=== PATIENT | male | born 1975 | race Caucasian/White ===

== ENCOUNTER 2020-10-11 10:38 | Inpatient (IN) | payer MEDICARE, MEDICAID, SELFPAY ==
--- NOTE | 2020-10-11 10:39 | ED.PSYCH ---
HPI - Psych General Chief Complaint: Psychiatric Symptoms Stated Complaint: SECTION 12, NON MED COMPLIANT Time Seen by Provider: 10/11/20 10:39 Source: patient and EMS Mode of arrival: EMS Limitations: other (vague historian, not really answering questions) History of Present Illness MD complaint: feels depressed and other (not taking medications, not eating, ?self harm practices, depressed) Onset (ago): week(s) (1) Duration: getting worse History of same: Yes Relieving factors: none Exacerbating factors: other (he has not been taking his medications per section 12 he is on lana's order) Context: not taking psychiatric medications Associated psychiatric symptoms: depression Associated symptoms: other (poor appetite) Treatments prior to arrival: placed on mental health hold Related Data Home Medications Medication Instructions Recorded Confirmed benztropine 1 tab PO DAILY 10/11/20 10/11/20 diphenhydramine HCl [Benadryl] 25 mg PO 10/11/20 melatonin 1 tab PO BEDTIME 10/11/20 10/11/20 olanzapine 1 tab PO BEDTIME 10/11/20 10/11/20 Allergies Allergy/AdvReac Type Severity Reaction Status Date / Time ofloxacin [From Floxin] Allergy Unknown Unknown Verified 10/11/20 10:46 prednisone AdvReac Unknown Unknown Verified 10/11/20 10:46 Review of Systems Review of Systems: ROS unable to be obtained due to limited historian, vague, not fully answering questions [facility] Past Medical History Attestation statement: The following information was validated with the patient. Medical History HLD (hyperlipidemia) Schizophrenia Social History Social History (Updated 10/11/20 @ 10:55 by Yancy Purcell DO) Alcohol intake: former Patient Tobacco Use Status: Current someday Tobacco user Use of substances other than those prescribed or required for medical reasons: No Advance Directives: Yes Advance Directives Information Provided: Yes Advance Directives on File: No Physical Exam Vital Signs: Vital Signs: Last Vital Signs Temp 98.5 F 10/11/20 13:40 Pulse 76 10/11/20 15:04 Resp 17 10/11/20 15:04 BP 151/92 H 10/11/20 15:04 Pulse Ox 97 10/11/20 15:04 Body Mass Index 30.4 Appearance: Alert. Oriented X3. No acute distress. Looking around room quickly at different noises Eyes: Pupils equal, round and reactive to light. ENT: Pharynx normal. Neck: Normal inspection. Neck supple. CVS: Normal heart rate and rhythm. Pulses normal. Respiratory: No respiratory distress. Breath sounds normal. Abdomen: Soft and non-tender. Skin: Skin warm and dry. Normal skin color. Normal skin turgor. Extremities: No lower extremity edema. No calf ttp Neuro: Oriented X 3. No motor deficit. No sensory deficit. limited exam due to patient seems to be staring off at times and internalizing, he appears slightly agitated at times Psych: flat affect, withdrawn, appears depressed, staring off at times ?responding to internal stimuli, seems on edge Course Course Course Narrative: Physician observation started at 306pm Patient placed in physician observation because the patient needed more time BHN to assess the patient and determine need for inpatient level of care. At the time observation was started the patient's vitals were stable, patient is alert and oriented but appears anxious, Neuro: nonfocal, CV RRR, Lungs clear MDM - Psych MDM Narrative Medical decision making narrative: 45 yo male with hx of HLD/schizophrenia here with non compliance of medications x 1 week even on lana's order, section 12 reports the patient is not eating, not taking care of himself, not using his AC when it is hot out, he appears depressed and withdrawn, ?responding to internal stimuli, at this time labs, BHN consult, anticipate he will require inpatient level of care Lab Data Result diagrams: 10/11/20 11:08 10/11/20 11:08 Labs: Lab Results 10/11/20 10/11/20 10/11/20 Range/Units 11:08 11:08 11:08 WBC 7.0 (4.8-10.8) X10*3/uL RBC 4.51 L (4.60-5.80) X10*6/uL Hgb 13.9 L (14.0-18.0) g/dl Hct 41.6 L (42-52) % MCV 92.2 (80-98) fL MCH 30.8 (27.0-33.0) pg MCHC 33.4 (31.0-36.0) g/dl RDW 12.7 (11.0-16.0) % Plt Count 187 (160-400) X10*3/uL MPV 10.6 (9.4-12.4) fL Immature Gran % (Auto) 0.4 (0.0-0.4) % Neut % (Auto) 76.0 H (45-73) % Lymph % (Auto) 17.3 L (20-40) % [place] % (Auto) 5.6 (2-11) % Eos % (Auto) 0.3 (0-4) % Baso % (Auto) 0.4 (0-2) % Lymph # (Auto) 1.2 (1.2-4.9) X10*3/uL [place] # (Auto) 0.4 (0.1-1.2) X10*3/uL Eos # (Auto) 0.0 (0.0-0.4) X10*3/uL Baso # (Auto) 0.0 (0.0-0.2) X10*3/uL Abs Immat Gran (auto) 0.03 (0.00-0.03) X10*3/uL Absolute Neuts (auto) 5.3 (2.0-8.3) X10*3/uL Absolute Nucleated RBC 0.000 (0.0-0.012) X10*3/uL Nucleated RBC % (auto) 0.0 (0.0-0.2) /100WBC Sodium 141 (135-145) mmol/L Potassium 3.8 (3.3-5.1) mmol/L Chloride 106 (96-108) mmol/L Carbon Dioxide 24 (22-29) mmol/L Anion Gap 15 (12-20) BUN 17 H (9-16) mg/dL Creatinine 0.85 (0.5-1.4) mg/dL Estim Creat Clear Calc 129.1 Estimated GFR > 60 Random Glucose 120 H (60-115) mg/dL Calcium 9.3 (8.4-10.2) mg/dL Total Bilirubin 1.1 H (0.0-1.0) mg/dL Direct Bilirubin 0.3 (0.0-0.5) mg/dL AST 17 (5-37) U/L ALT 9 (0-40) U/L Alkaline Phosphatase 57 (39-117) U/L Total Protein 6.6 (6.5-8.0) g/dL Albumin 4.4 (3.5-5.0) g/dL Urine Color Urine Appearance Urine pH (5.0-8.0) Ur Specific [place] (1.005-1.025) Urine Protein (NEG-TRACE) MG/DL Urine Glucose (UA) (NEG) MG/DL Urine Ketones (NEG) MG/DL Urine Blood (NEG) Urine Nitrite (NEG) Ur Leukocyte Esterase (NEG) Urine Opiates Screen (Not Detect) Ur Barbiturates Screen (Not Detect) Ur Phencyclidine Scrn (Not Detect) Ur Amphetamines Screen (Not Detect) U Benzodiazepines Scrn (Not Detect) Urine Cocaine Screen (Not Detect) U Marijuana (THC) Screen (Not Detect) Ethyl Alcohol mg/dL COVID-19 (KEARA) Negative (Negative) COVID-19 Clin Com See Note 10/11/20 10/11/20 10/11/20 Range/Units 11:08 13:42 13:42 WBC (4.8-10.8) X10*3/uL RBC (4.60-5.80) X10*6/uL Hgb (14.0-18.0) g/dl Hct (42-52) % MCV (80-98) fL MCH (27.0-33.0) pg MCHC (31.0-36.0) g/dl RDW (11.0-16.0) % Plt Count (160-400) X10*3/uL MPV (9.4-12.4) fL Immature Gran % (Auto) (0.0-0.4) % Neut % (Auto) (45-73) % Lymph % (Auto) (20-40) % [place] % (Auto) (2-11) % Eos % (Auto) (0-4) % Baso % (Auto) (0-2) % Lymph # (Auto) (1.2-4.9) X10*3/uL [place] # (Auto) (0.1-1.2) X10*3/uL Eos # (Auto) (0.0-0.4) X10*3/uL Baso # (Auto) (0.0-0.2) X10*3/uL Abs Immat Gran (auto) (0.00-0.03) X10*3/uL Absolute Neuts (auto) (2.0-8.3) X10*3/uL Absolute Nucleated RBC (0.0-0.012) X10*3/uL Nucleated RBC % (auto) (0.0-0.2) /100WBC Sodium (135-145) mmol/L Potassium (3.3-5.1) mmol/L Chloride (96-108) mmol/L Carbon Dioxide (22-29) mmol/L Anion Gap (12-20) BUN (9-16) mg/dL Creatinine (0.5-1.4) mg/dL Estim Creat Clear Calc Estimated GFR Random Glucose (60-115) mg/dL Calcium (8.4-10.2) mg/dL Total Bilirubin (0.0-1.0) mg/dL Direct Bilirubin (0.0-0.5) mg/dL AST (5-37) U/L ALT (0-40) U/L Alkaline Phosphatase (39-117) U/L Total Protein (6.5-8.0) g/dL Albumin (3.5-5.0) g/dL Urine Color YELLOW Urine Appearance CLEAR Urine pH 6.0 (5.0-8.0) Ur Specific [place] >= 1.030 H (1.005-1.025) Urine Protein TRACE (NEG-TRACE) MG/DL Urine Glucose (UA) NEG (NEG) MG/DL Urine Ketones >=80 (NEG) MG/DL Urine Blood NEG (NEG) Urine Nitrite NEG (NEG) Ur Leukocyte Esterase NEG (NEG) Urine Opiates Screen Not Detected (Not Detect) Ur Barbiturates Screen Not Detected (Not Detect) Ur Phencyclidine Scrn Not Detected (Not Detect) Ur Amphetamines Screen Not Detected (Not Detect) U Benzodiazepines Scrn Not Detected (Not Detect) Urine Cocaine Screen Not Detected (Not Detect) U Marijuana (THC) Screen POSITIVE H (Not Detect) Ethyl Alcohol < 10 mg/dL COVID-19 (KEARA) (Negative) COVID-19 Clin Com ECG Data Attestation: I personally reviewed and interpreted this ECG as follows: ECG interpretation date: 10/11/20 ECG interpretation time: 11:19 Interpretation: Rate: 80 Rhythm: NSR [place]: left Normal P waves. Normal JARED. Normal QRS complex. ST T wave : normal no ANIYA qTC: normal prior studies: no acute ischemia The study has been interpreted contemporaneously by me. . Discharge Plan Discharge Clinical Impression: Chronic schizophrenia, Medical non-compliance Prescriptions: No Action benztropine 0.5 mg tablet 1 tab PO DAILY RF: 0 diphenhydramine HCl [Benadryl] 25 mg Capsule 25 mg PO RF: 0 olanzapine 20 mg tablet 1 tab PO BEDTIME RF: 0 melatonin 5 mg tablet 1 tab PO BEDTIME RF: 0
[2020-10-11 10:41] VITALS: BP 131/73; PULSE 80; RESP 16; TEMP 36.9; O2SAT 96; BMI 30.4
--- NOTE | 2020-10-11 10:46 | ECG_ITS ---
Test Reason : PSYHC Blood Pressure : / mmHG Vent. Rate : 080 BPM Atrial Rate : 080 BPM P-R Int : 128 ms QRS Dur : 084 ms QT Int : 394 ms P-R-T Axes : 042 -18 032 degrees QTc Int : 454 ms Normal sinus rhythm Normal ECG No previous ECGs available Referred By: Yancy Purcell Electronically Signed By:JUANY FREITAS
--- NOTE | 2020-10-11 11:05 | PC.NURSE ---
Patient placed in hospital gown, and personal belongings secured with security
[2020-10-11 11:23] LABS: MANUAL DIFF FLAG NO
--- NOTE | 2020-10-11 11:23 | PC.NURSE ---
Patient brought in by ems for evaluation of behavior. Pt admits to not taking his home medications since last Saturday. When asked why by the physician, pt states he felt like meds were not helping him. Pt denies SI or HI, pt also denies being depressed. Pt acts withdrawn, and has very short answers to any questions.
[2020-10-11 11:25] LABS: Basophils Percent Auto 0.4 % (0-2); Eosinophils Percent Auto 0.3 % (0-4); Hematocrit 41.6 % (42-52); Hemoglobin 13.9 g/dl (14.0-18.0); Imm Gran Abs Auto 0.03 X10*3/uL (0.00-0.03); Imm Gran Pct Auto 0.4 % (0.0-0.4); Lymphocytes Absolute Auto 1.2 X10*3/uL (1.2-4.9); Lymphocytes Percent Auto 17.3 % (20-40); Mean Corpuscular HGB Conc 33.4 g/dl (31.0-36.0); Mean Corpuscular Hemoglobin 30.8 pg (27.0-33.0); Mean Corpuscular Volume 92.2 fL (80-98); Mean Platelet Volume 10.6 fL (9.4-12.4); Monocytes Absolute Auto 0.4 X10*3/uL (0.1-1.2); Monocytes Percent Auto 5.6 % (2-11); Neutrophils Absolute Auto 5.3 X10*3/uL (2.0-8.3); Platelet Count 187 X10*3/uL (160-400); Red Blood Count 4.51 X10*6/uL (4.60-5.80); Red Cell Distribution Width 12.7 % (11.0-16.0)
[2020-10-11 11:40] LABS: COVID-19 Test Negative (Negative); IDNOW Serial# 9DD0AD1C
[2020-10-11 11:51] LABS: Alanine Aminotransferase 9 U/L (0-40); Albumin Level 4.4 g/dL (3.5-5.0); Alkaline Phosphatase 57 U/L (39-117); Anion Gap 15 (12-20); Aspartate Amino Transferase 17 U/L (5-37); Bilirubin Direct 0.3 mg/dL (0.0-0.5); Bilirubin Total 1.1 mg/dL (0.0-1.0); Blood Urea Nitrogen 17 mg/dL (9-16); Calcium 9.3 mg/dL (8.4-10.2); Carbon Dioxide 24 mmol/L (22-29); Chloride 106 mmol/L (96-108); Creatinine Clr Calc Pharmacy 129.1; Estimated Glomerular Filt Rate > 60; Glucose Random 120 mg/dL (60-115); Potassium 3.8 mmol/L (3.3-5.1); Sodium 141 mmol/L (135-145); Total Protein 6.6 g/dL (6.5-8.0)
[2020-10-11 11:59] LABS: Ethanol < 10 mg/dL
[2020-10-11 13:40] VITALS: BP 121/65; PULSE 76; RESP 18; TEMP 36.9; O2SAT 97
[2020-10-11 13:54] LABS: Glucose Urine UA NEG (NEG); Leukocyte Esterase Urine NEG (NEG); Nitrite Urine NEG (NEG); Specific Gravity - Urine >= 1.030 (1.005-1.025); Urine Blood NEG (NEG); Urine Ketones >=80 MG/DL (NEG); Urine Protein TRACE MG/DL (NEG-TRACE)
[2020-10-11 13:56] LABS: Appearance Urine CLEAR; Color Urine YELLOW
[2020-10-11 14:26] LABS: Amphetamine Screen Urine Not Detected (Not Detect); Barbiturates, Urine Not Detected (Not Detect); Benzodiazepines Screen Urine Not Detected (Not Detect); Cannabinoid Screen Urine POSITIVE (Not Detect); Cocaine Screen Urine Not Detected (Not Detect); Opiate Screen Urine Not Detected (Not Detect); Phencyclidine Screen Urine Not Detected (Not Detect)
[2020-10-11 15:04] VITALS: BP 151/92; PULSE 76; RESP 17; O2SAT 97
--- NOTE | 2020-10-11 15:05 | PC.NURSE ---
Pt continues to answer in only one or two word answers. Pt did not eat or drink anything off of lunch tray. pt offered a sandwich but states i'm not hungry . Pt again asked what he would like to eat for dinner. He agains says he is not hungry.
--- NOTE | 2020-10-11 15:23 | PC.NURSE ---
Report given to DANNY Zafar in the POD
--- NOTE | 2020-10-11 17:10 | PC.NURSE ---
Aracelis Chavez from [facility] called, States patient is an Inpatient Bed search.
[2020-10-11 18:00] VITALS: RESP 16
[2020-10-11] MEDS: OLANZapine 10 MG TABLET 20 MG PO (20:29)
[2020-10-11] MEDS: Melatonin 3 MG TABLET 6 MG PO (20:29)
[2020-10-12 00:05] VITALS: BP 147/79; PULSE 75; RESP 18; TEMP 36.1; O2SAT 99
--- NOTE | 2020-10-12 02:21 | PC.ADMIT ---
Addendum entered by Marcel Pickard RN 10/12/20 02:51: We will also have to contact [facility] for his Champion order Original Note: Pt is a 45yo male, F28 Psychosis, CV, 15-min safety checks. Pt calm cooperative alert to person, place and time. Pt had a very unusual pencil grasp at times. Pt had thought blocking. At times Pt would have poor memory, poor understanding, disorganization or confusion. In case of restraint, Pt would like his mother Sneha Benoit called. he does not recall her phone number. We will have to call Charley Lynn his recreation program specialist to find it. he would also like his mother notified hat he is here. Pt reports recent >30lbs weight loss. Pt does not appear to have had major recent weight loss. Pt asked for sandwich during interview but did not eat it. Pt said he would wait for breakfast. Pt hypervigilant in [place] after interview but quickly settled and went to bed.
[2020-10-12 06:00] VITALS: BP 141/66; PULSE 68; RESP 18; TEMP 36.3; O2SAT 94
[2020-10-12] MEDS: Benztropine Mesylate 0.5 MG TABLET PO (07:59)
--- NOTE | 2020-10-12 09:40 | P.HPPS_ITS ---
HPI Chief Complaint: Med non compliance Sources of Information: patient interviewed, chart reviewed and crisis/core team assessment reviewed HPI Subjective Notes: [place]in Warning and Conditional Voluntary Narrative: patient is a 45-year-old male with chronic psychotic disorder, assaultive behavior, on a [employer], and currently living in a [facility] to subsidize apartment who presents for worsening psychotic symptoms and the face of refusing medications. Patient signed a CV. On admission, patient is somewhat disorganized, asking for his lunch tray to be removed rather than answering the proposal lead writer's questions. He does deny any SI or HI. To questions regarding delusional content or paranoid ideations he says no. Patient presents with significant thought blocking and appears to be internally preoccupied, but denies any AVH. When asked why he stopped taking his medications he said the because they were a little acidy and clarified saying like bowel acid, but then he changed his mind and said that that is probably just dependent on what he eats and not the medications. He said he will take his medications. patient moving about a little in the room during interview, looking around and only giving 1 or 2 word answers to questions; he then repeat ed what to do with his finished lunch tray; proposal lead writer showed patient where to place it. Crisis note reports Patient's program managers comments that he was sitting outside his [facility] program but not responding to staff and that he has a history of assaultive behaviors and violence, with SI when he is off his medications. Past Psychiatric History: History of chronic psychotic illness Patient on [employer] which was reviewed and in effect until 2021 Medical Evaluation Reviewed: Yes [facility] Medical History HLD (hyperlipidemia) Schizophrenia Family History: deferred; patient not organized enough to discuss Social History: deferred; patient not organized enough to discuss Substance History: deferred; patient not organized enough to discuss Trauma History: deferred; patient not organized enough to discuss Diagnostics Vital Signs (24Hr): Vital Signs - 24 hr 10/11/20 10:41 10/11/20 13:40 10/11/20 15:04 Temperature 98.4 F 98.5 F Pulse Rate 80 76 76 Respiratory Rate 16 18 17 Blood Pressure 131/73 121/65 151/92 H Pulse Oximetry 96 97 97 10/11/20 18:00 10/12/20 00:05 10/12/20 06:00 Temperature 96.9 F 97.3 F Pulse Rate 75 68 Respiratory Rate 16 18 18 Blood Pressure 147/79 H 141/66 H Pulse Oximetry 99 94 Body Mass Index 30.0 Labs Results: 10/11/20 11:08 10/11/20 11:08 Labs: Laboratory Results - last 48 hr 10/11/20 10/11/20 10/11/20 11:08 11:08 11:08 WBC 7.0 RBC 4.51 L Hgb 13.9 L Hct 41.6 L MCV 92.2 MCH 30.8 MCHC 33.4 RDW 12.7 Plt Count 187 MPV 10.6 Immature Gran % (Auto) 0.4 Neut % (Auto) 76.0 H Lymph % (Auto) 17.3 L [place] % (Auto) 5.6 Eos % (Auto) 0.3 Baso % (Auto) 0.4 Lymph # (Auto) 1.2 [place] # (Auto) 0.4 Eos # (Auto) 0.0 Baso # (Auto) 0.0 Abs Immat Gran (auto) 0.03 Absolute Neuts (auto) 5.3 Absolute Nucleated RBC 0.000 Nucleated RBC % (auto) 0.0 Sodium 141 Potassium 3.8 Chloride 106 Carbon Dioxide 24 Anion Gap 15 BUN 17 H Creatinine 0.85 Estim Creat Clear Calc 129.1 Estimated GFR > 60 Random Glucose 120 H Calcium 9.3 Total Bilirubin 1.1 H Direct Bilirubin 0.3 AST 17 ALT 9 Alkaline Phosphatase 57 Total Protein 6.6 Albumin 4.4 Urine Color Urine Appearance Urine pH Ur Specific [place] Urine Protein Urine Glucose (UA) Urine Ketones Urine Blood Urine Nitrite Ur Leukocyte Esterase Urine Opiates Screen Ur Barbiturates Screen Ur Phencyclidine Scrn Ur Amphetamines Screen U Benzodiazepines Scrn Urine Cocaine Screen U Marijuana (THC) Screen Ethyl Alcohol COVID-19 (KEARA) Negative COVID-19 Clin Com See Note 10/11/20 10/11/20 10/11/20 11:08 13:42 13:42 WBC RBC Hgb Hct MCV MCH MCHC RDW Plt Count MPV Immature Gran % (Auto) Neut % (Auto) Lymph % (Auto) [place] % (Auto) Eos % (Auto) Baso % (Auto) Lymph # (Auto) [place] # (Auto) Eos # (Auto) Baso # (Auto) Abs Immat Gran (auto) Absolute Neuts (auto) Absolute Nucleated RBC Nucleated RBC % (auto) Sodium Potassium Chloride Carbon Dioxide Anion Gap BUN Creatinine Estim Creat Clear Calc Estimated GFR Random Glucose Calcium Total Bilirubin Direct Bilirubin AST ALT Alkaline Phosphatase Total Protein Albumin Urine Color YELLOW Urine Appearance CLEAR Urine pH 6.0 Ur Specific [place] >= 1.030 H Urine Protein TRACE Urine Glucose (UA) NEG Urine Ketones >=80 Urine Blood NEG Urine Nitrite NEG Ur Leukocyte Esterase NEG Urine Opiates Screen Not Detected Ur Barbiturates Screen Not Detected Ur Phencyclidine Scrn Not Detected Ur Amphetamines Screen Not Detected U Benzodiazepines Scrn Not Detected Urine Cocaine Screen Not Detected U Marijuana (THC) Screen POSITIVE H Ethyl Alcohol < 10 COVID-19 ([facility]ARA) COVID-19 Clin Com Meds/Allergies Meds Home Medications Acetaminophen (Acetaminophen 325 Mg Tablet) 650 mg PO Q6H PRN PRN Reason: Headache/Pain Mild Scale (1-3) Al Hydroxide/Mg Hydroxide (Magnesium Hydrox/Alum Hydrox 30 Ml Oral.Susp) 30 ml PO Q6H PRN PRN Reason: Heartburn/Nausea Benztropine Mesylate (Benztropine Mesylate 0.5 Mg Tablet) 0.5 mg PO DAILY [facility] Last Admin: 10/12/20 07:59 Dose: 0.5 mg Documented by: Hydroxyzine HCl (Hydroxyzine Hcl 25 Mg Tablet) 25 mg PO BEDTIME PRN PRN Reason: Anxiety Magnesium Hydroxide (Milk Of Magnesia 30 Ml Oral.Susp) 30 ml PO DAILY PRN PRN Reason: Constipation Melatonin (Melatonin 3 Mg Tablet) 6 mg PO BEDTIME [facility] Last Admin: 10/11/20 20:29 Dose: 6 mg Documented by: Nicotine (Nicotine 14 Mg Patch.Td24) 14 mg TRANSDERMA DAILY [facility] Last Admin: 10/12/20 07:59 Dose: Not Given Documented by: Nicotine Polacrilex (Nicotine Polacrilex 2 Mg Gum) 4 mg BUCCAL Q2H PRN PRN Reason: Nicotine Cravings Olanzapine (Olanzapine 10 Mg Tablet) 20 mg PO BEDTIME [facility] Last Admin: 10/11/20 20:29 Dose: 20 mg Documented by: Olanzapine (Olanzapine 10 Mg Vial) 10 mg IM DAILY PRN PRN Reason: GIVE IF REFUSES PO Pharmacy Consult (Consult Rx Perform Med Rec) 1 each MISCELLANE ONCE PRN PRN Reason: Consult order Trazodone HCl (Trazodone Hcl 50 Mg Tablet) 50 mg PO BEDTIME PRN PRN Reason: Insomnia Allergies Allergies Allergy/AdvReac Type Severity Reaction Status Date / Time ofloxacin [From Floxin] Allergy Unknown Unknown Verified 10/11/20 10:46 prednisone AdvReac Unknown Unknown Verified 10/11/20 10:46 Mental Status Exam Mental Status Exam Narrative: Pt is alert and oriented; behavior is marginally cooperative; patient is not in distress; dressed in casual attire, malodorous; mood is described as good but affect blunted; eye contact avoidant; Speech is a little delayed and sparse, but otherwise normal rate, volume and prosody and not pressured; some mild psychomotor agitation; thought process is goal directed and concrete; Thought content is on sparse, on getting lunch tray removed from room; denies delusional content or paranoid ideations; denies any SI/HI. Thought blocking present and appears internally preoccupied, but denies AVH. Patients insight and judgment are impaired. Assessment & Plan Assessment & Plan (1) Chronic schizophrenia: Status: Acute Code(s): F20.9 - Schizophrenia, unspecified (2) Medical non-compliance: Status: Acute Code(s): Z91.19 - Patient's noncompliance with other medical treatment and regimen Assessment and Plan: IMPRESSION: patient is a 45-year-old male with chronic psychotic disorder, assaultive behavior, on a [employer], and currently [facility] who presents for worsening psychotic symptoms and the face of refusing medications. Patient is malodorous, currently with blunted affect and moderately disorganized. patient cannot explain why he stopped taking his medications but says that he will take them now and did in fact take last night it's bedtime dose. He denies any SI, HI or AVH however he presents as internally preoccupied with thought blocking. He is currently on a [employer]. Will admit for safety and stabilization. PLAN: Patient is on a CV, Patient is under [employer] valid until 2021 Patient's Zyprexa restarted at 20 mg at bedtime ( crisis note reports 40 mg his home dose) ordered Zyprexa IM 10 mg p.r.n. if patient refuses p.o. medication will titrate Zyprexa to home dose once it is verified and will continue other medications Team will discuss case with case marketing programs manager at [facility]. will add a p.r.n. medication for agitation Reason for continued inpatient stay Substantial Risk for: harm to others and rapid decompensation
[2020-10-12 16:20] VITALS: BP 120/71; PULSE 68; RESP 18; TEMP 36.3; O2SAT 98
[2020-10-12] MEDS: Melatonin 3 MG TABLET 6 MG PO (20:32)
[2020-10-12] MEDS: OLANZapine 10 MG TABLET 20 MG PO (20:32)
[2020-10-13 06:37] VITALS: BP 144/70; PULSE 101; RESP 16; O2SAT 97
[2020-10-13 07:00] VITALS: BMI 29.7
[2020-10-13 10:23] LABS: Estimated Average Glucose 117 mg/dL; Hemoglobin A1C 149.1389 umol/L; Hemoglobin A1c % 5.7 %
[2020-10-13 10:41] LABS: Cholesterol 186 mg/dL; HDL Cholesterol 35 mg/dL; LDL Cholesterol Calculated 132 mg/dl; Triglycerides 97 mg/dL
[2020-10-13 11:42] LABS: Reflex LDLD? No
[2020-10-13 16:17] VITALS: BP 135/74; PULSE 77; RESP 18; TEMP 36.3; O2SAT 98
[2020-10-13] MEDS: OLANZapine 10 MG TABLET 20 MG PO (20:13)
[2020-10-13] MEDS: Melatonin 3 MG TABLET 6 MG PO (20:13)
--- NOTE | 2020-10-13 21:59 | P.PNPSI_ITS ---
Subjective Subjective Date of Service: 10/13/20 Reason For Visit: Med non compliance Interim History: pt says he's good; he remains with thought blocking and difficult to engage offering one word answers. He denies any SI or HI or AVH. He does tell procedure writer that he placed a 3 day notice; Manufacturing Technology Analyst asked about his living situation in his own apartment to which he said it's good but that he does not like the staff in his program; on further inquiry he does like some staff. Manufacturing Technology Analyst asked about his mother. He says she comes to his apartment to visit him about 1/week. Medication Compliance: Yes Side effects from medications: No Mental Status Exam Mental Status Exam Narrative: Pt is alert and oriented; behavior is marginally cooperative; p atient is not in distress; dressed in casual attire. remains malodorous; mood is described as good but affect blunted; eye contact avoidant; Speech is a little delayed and sparse, but otherwise normal rate, volume and prosody and not pressured; no psychomotor agitation; thought process is goal directed and concrete; Thought content is sparse, on discharge; denies delusional content or paranoid ideations; denies any SI/HI. Thought blocking present and appears internally preoccupied, but denies AVH. Patients insight and judgment are impaired. Diagnostics Vital Signs (24Hr): Vital Signs - 24 hr 10/13/20 06:37 10/13/20 16:17 Temperature 97.3 F Pulse Rate 101 H 77 Respiratory Rate 16 18 Blood Pressure 144/70 H 135/74 Pulse Oximetry 97 98 Body Mass Index 29.7 Labs Results: 10/11/20 11:08 10/11/20 11:08 Labs: Laboratory Results - last 48 hr 10/13/20 10/13/20 09:15 09:15 Estimat Average Glucose 117 Hemoglobin A1c % 5.7 Triglycerides 97 Cholesterol 186 LDL Cholesterol, Calc 132 HDL Cholesterol 35 Medications Medications Current Medications Generic Name Dose Route Start Last Admin Trade Name Freq PRN Reason Stop Dose Admin Acetaminophen 650 mg 10/11/20 22:53 Acetaminophen 325 Mg Tablet PO Q6H PRN Headache/Pain Mild Scale (1-3) Al Hydroxide/Mg Hydroxide 30 ml 10/11/20 22:53 Magnesium Hydrox/Alum Hydrox 30 Ml Oral.Susp PO Q6H PRN Heartburn/Nausea Benztropine Mesylate 0.5 mg 10/13/20 14:29 Benztropine Mesylate 0.5 Mg Tablet PO DAILY PRN EPS Diphenhydramine HCl 50 mg 10/12/20 16:32 Diphenhydramine Hcl 25 Mg Tablet PO Q4H PRN agitation Haloperidol 5 mg 10/12/20 16:32 Haloperidol 5 Mg Tablet PO Q4H PRN agitation Hydroxyzine HCl 25 mg 10/11/20 22:53 Hydroxyzine Hcl 25 Mg Tablet PO BEDTIME PRN Anxiety Lorazepam 2 mg 10/12/20 16:32 Lorazepam 1 Mg Tablet PO Q4H PRN agitation Magnesium Hydroxide 30 ml 10/11/20 22:53 Milk Of Magnesia 30 Ml Oral.Susp PO DAILY PRN Constipation Melatonin 6 mg 10/11/20 21:00 10/13/20 20:13 Melatonin 3 Mg Tablet PO 6 mg BEDTIME MARIA Administration Nicotine 14 mg 10/12/20 09:00 10/13/20 08:43 Nicotine 14 Mg Patch.Td24 TRANSDERMA Not Given DAILY MARIA Nicotine Polacrilex 4 mg 10/11/20 22:53 Nicotine Polacrilex 2 Mg Gum BUCCAL Q2H PRN Nicotine Cravings Olanzapine 20 mg 10/11/20 21:00 10/13/20 20:13 Olanzapine 10 Mg Tablet PO 10/13/20 23:59 20 mg BEDTIME MARIA Administration Olanzapine 10 mg 10/12/20 15:58 Olanzapine 10 Mg Vial IM DAILY PRN GIVE IF REFUSES PO Olanzapine 30 mg 10/14/20 21:00 Olanzapine 10 Mg Tablet PO 10/14/20 23:59 BEDTIME MARIA Olanzapine 40 mg 10/15/20 21:00 Olanzapine 10 Mg Tablet PO BEDTIME MARIA Pharmacy Consult 1 each 10/11/20 10:46 Consult Rx Perform Med Rec MISCELLANE ONCE PRN Consult order Pharmacy Consult 1 each 10/13/20 14:28 Consult Rx Perform Med Rec MISCELLANE ONCE PRN Consult order Trazodone HCl 50 mg 10/11/20 22:53 Trazodone Hcl 50 Mg Tablet PO BEDTIME PRN Insomnia Allergies Allergies Allergy/AdvReac Type Severity Reaction Status Date / Time ofloxacin [From Floxin] Allergy Unknown Unknown Verified 10/11/20 10:46 prednisone AdvReac Unknown Unknown Verified 10/11/20 10:46 Assessment & Plan Assessment & Plan (1) Chronic schizophrenia: Status: Acute Code(s): F20.9 - Schizophrenia, unspecified (2) Medical non-compliance: Status: Acute Code(s): Z91.19 - Patient's noncompliance with other medical treatment and regimen Assessment and Plan: IMPRESSION: patient is a 45-year-old male with chronic psychotic disorder, assaultive behavior, on a community Champion, and currently living in a [facility] to subsidize apartment who presents for worsening psychotic symptoms and the face of refusing medications. Patient is malodorous, currently with blunted affect and moderately disorganized. patient cannot explain why he stopped taking his medications but says that he will take them now and did in fact take last night it's bedtime dose. He denies any SI, HI or AVH however he presents as internally preoccupied with thought blocking. He is currently on a [employer] Champion. Will admit for safety and stabilization. pt taking meds; remains disorganized, internally preoccupied but in appropriate behavioral control med rec complete and pt's zyprexa verified to be 40mg; will titrate PLAN: Patient is on a CV, Patient is under community Champion valid until 2021 Titrate Zyprexa to 40mg ordered Zyprexa IM 10 mg p.r.n. if patient refuses p.o. medication will titrate Zyprexa to home dose once it is verified and will continue other medications Team will discuss case with case montessori program director at [facility]. will add a p.r.n. medication for agitation Greater than 50% of the session was spent on counseling and/or coordination of care Reason for contiued inpatient stay Substantial Risk for: rapid decompensation
--- NOTE | 2020-10-14 00:34 | PC.NURSE ---
LATE ENTRY FOR 10/13/20 @ 0645: PT REQUESTED AND SIGNED A 3 DAY NOTICE.
[2020-10-14 06:00] VITALS: BP 127/76; PULSE 75; RESP 16; TEMP 36.2; O2SAT 97
--- NOTE | 2020-10-14 09:41 | HO.PSYCHPN ---
Subjective Subjective Date of Service: 10/14/20 Reason For Visit: Med non compliance Subjective Notes: 3 Day Interim History: patient standing in the hallway at the entrance to his room for over an hour, looking around, not moving, not talking to anyone. on approach patient remains with speech latency. He says he is good. Remains difficult to engage. Turbo Operator asked about auditory or visual hallucinations, patient looked blankly at sheet writer and said I signed a 3 day notice to which sheet writer acknowledged. Turbo Operator reiterated question to which patient says I have no idea what you're talking about. Patient continues to look around the hallway not talking to sheet writer. He denies SI or HI. He denies any complaints and has no requests. Staff reports that patient did not eat dinner last night. Mental Status Exam Mental Status Exam Narrative: Pt is alert and oriented; behavior is marginally cooperative, disorganized; patient is not in distress; dressed in casual attire. remains malodorous; mood is described as good but affect blunted, vacant; eye contact avoidant; Speech latency and with few words but otherwise normal rate, volume and prosody and not pressured; no psychomotor agitation; thought process is goal directed and concrete; Thought content is sparse, on getting discharge; denies delusional content or paranoid ideations; denies any SI/HI. Thought blocking present and appears internally preoccupied. Patients insight and judgment are impaired. Diagnostics Vital Signs (24Hr): Vital Signs - 24 hr 10/13/20 16:17 10/14/20 06:00 Temperature 97.3 F 97.2 F Pulse Rate 77 75 Respiratory Rate 18 16 Blood Pressure 135/74 127/76 Pulse Oximetry 98 97 Body Mass Index 29.7 Labs Results: 10/11/20 11:08 10/11/20 11:08 Labs: Laboratory Results - last 48 hr 10/13/20 10/13/20 09:15 09:15 Estimat Average Glucose 117 Hemoglobin A1c % 5.7 Triglycerides 97 Cholesterol 186 LDL Cholesterol, Calc 132 HDL Cholesterol 35 Medications Medications Current Medications Generic Name Dose Route Start Last Admin Trade Name Freq PRN Reason Stop Dose Admin Acetaminophen 650 mg 10/11/20 22:53 Acetaminophen 325 Mg Tablet PO Q6H PRN Headache/Pain Mild Scale (1-3) Al Hydroxide/Mg Hydroxide 30 ml 10/11/20 22:53 Magnesium Hydrox/Alum Hydrox 30 Ml Oral.Susp PO Q6H PRN Heartburn/Nausea Benztropine Mesylate 0.5 mg 10/13/20 14:29 Benztropine Mesylate 0.5 Mg Tablet PO DAILY PRN EPS Diphenhydramine HCl 50 mg 10/12/20 16:32 Diphenhydramine Hcl 25 Mg Tablet PO Q4H PRN agitation Haloperidol 5 mg 10/12/20 16:32 Haloperidol 5 Mg Tablet PO Q4H PRN agitation Hydroxyzine HCl 25 mg 10/11/20 22:53 Hydroxyzine Hcl 25 Mg Tablet PO BEDTIME PRN Anxiety Lorazepam 2 mg 10/12/20 16:32 Lorazepam 1 Mg Tablet PO Q4H PRN agitation Magnesium Hydroxide 30 ml 10/11/20 22:53 Milk Of Magnesia 30 Ml Oral.Susp PO DAILY PRN Constipation Melatonin 6 mg 10/11/20 21:00 10/13/20 20:13 Melatonin 3 Mg Tablet PO 6 mg BEDTIME MARIA Administration Nicotine 14 mg 10/12/20 09:00 10/14/20 08:11 Nicotine 14 Mg Patch.Td24 TRANSDERMA Not Given DAILY MARIA Nicotine Polacrilex 4 mg 10/11/20 22:53 Nicotine Polacrilex 2 Mg Gum BUCCAL Q2H PRN Nicotine Cravings Olanzapine 10 mg 10/12/20 15:58 Olanzapine 10 Mg Vial IM DAILY PRN GIVE IF REFUSES PO Olanzapine 30 mg 10/14/20 21:00 Olanzapine 10 Mg Tablet PO 10/14/20 23:59 BEDTIME MARIA Olanzapine 40 mg 10/15/20 21:00 Olanzapine 10 Mg Tablet PO BEDTIME MARIA Pharmacy Consult 1 each 10/11/20 10:46 Consult Rx Perform Med Rec MISCELLANE ONCE PRN Consult order Pharmacy Consult 1 each 10/13/20 14:28 Consult Rx Perform Med Rec MISCELLANE ONCE PRN Consult order Trazodone HCl 50 mg 10/11/20 22:53 Trazodone Hcl 50 Mg Tablet PO BEDTIME PRN Insomnia Allergies Allergies Allergy/AdvReac Type Severity Reaction Status Date / Time ofloxacin [From Floxin] Allergy Unknown Unknown Verified 10/11/20 10:46 prednisone AdvReac Unknown Unknown Verified 10/11/20 10:46 Assessment & Plan Assessment & Plan (1) Chronic schizophrenia: Status: Acute Code(s): F20.9 - Schizophrenia, unspecified (2) Medical non-compliance: Status: Acute Code(s): Z91.19 - Patient's noncompliance with other medical treatment and regimen Assessment and Plan: IMPRESSION: patient is a 45-year-old male with chronic psychotic disorder, assaultive behavior, on a community Champion, and currently living in a [facility] to subsidize apartment who presents for worsening psychotic symptoms and the face of refusing medications. Patient is malodorous, currently with blunted affect and moderately disorganized. patient cannot explain why he stopped taking his medications but says that he will take them now and did in fact take last night it's bedtime dose. He denies any SI, HI or AVH however he presents as internally preoccupied with thought blocking. He is currently on a [employer] Champion. Will admit for safety and stabilization. pt taking meds; remains disorganized, internally preoccupied but no inappropriate or problematic behavioral med rec complete and pt's zyprexa verified to be 40mg; will titrate PLAN: 3 day notice Patient is under [employer] valid until 2021 Titrate Zyprexa to 40mg (although typical max dose is 20mg, 40 mg is patients normal home dose) ordered Zyprexa IM 10 mg p.r.n. if patient refuses p.o. medication will titrate Zyprexa to home dose once it is verified and will continue other medications Team will discuss case with case research programmer at [facility]. will add a p.r.n. medication for agitation Greater than 50% of the session was spent on counseling and/or coordination of care Reason for contiued inpatient stay Substantial Risk for: rapid decompensation
[2020-10-14] MEDS: Melatonin 3 MG TABLET 6 MG PO (22:21)
[2020-10-14] MEDS: OLANZapine 10 MG TABLET 30 MG PO (22:22)
--- NOTE | 2020-10-15 09:38 | P.PNPSI_ITS ---
Subjective Subjective Date of Service: 10/15/20 Reason For Visit: Med non compliance Interim History: pt standing in [place], has been for past hour; he paces within a small area and looks around. Continues to have latent speech and offers only 1-2 word answers. Monitoring And Evaluation Advisor asked if he was feeling back to his normal self to which he said ...aaah, i guess so. Later however patient stopped and asked freelance writer if he could transfer to another hospital; freelance writer asked him why he was this on his mind, to which pt said ?what do you think?? Monitoring And Evaluation Advisor explained that he?s been here a few days, is back on his meds, headed toward discharge and that it seems prudent he remain here to which pt said ?OK? Another time, pt asked freelance writer ?do you know how discharge works?? And preceded 2 ask questions about how our staff contacts his staff, mentioning that the director is out of town etc. Since admission, this is the first time patient has initiated any conversation with freelance writer or had a back and forth dialogue freelance writer asked and patient said he would shower and wash his cloths tomorrow. Mental Status Exam Mental Status Exam Narrative: Pt is alert and oriented; behavior is more cooperative, still diso rganized but less so; patient is not in distress; dressed in casual attire. remains very malodorous; mood is described as good but affect blunted, vacant; eye contact more consistent; Speech latency but becoming more spontaneous; otherwise normal rate, volume and prosody and not pressured; no psychomotor agitation; thought process is goal directed and concrete; Thought content is sparse, on getting discharge; denies delusional content or paranoid ideations; denies any SI/HI. Thought blocking present and appears internally preoccupied. Patients insight and judgment are impaired. Diagnostics Vital Signs (24Hr): Body Mass Index 29.7 Labs Results: 10/11/20 11:08 10/11/20 11:08 Labs: Laboratory Results - last 48 hr 10/13/20 10/13/20 09:15 09:15 Estimat Average Glucose 117 Hemoglobin A1c % 5.7 Triglycerides 97 Cholesterol 186 LDL Cholesterol, Calc 132 HDL Cholesterol 35 Medications Medications Current Medications Generic Name Dose Route Start Last Admin Trade Name Freq PRN Reason Stop Dose Admin Acetaminophen 650 mg 10/11/20 22:53 Acetaminophen 325 Mg Tablet PO Q6H PRN Headache/Pain Mild Scale (1-3) Al Hydroxide/Mg Hydroxide 30 ml 10/11/20 22:53 Magnesium Hydrox/Alum Hydrox 30 Ml Oral.Susp PO Q6H PRN Heartburn/Nausea Benztropine Mesylate 0.5 mg 10/13/20 14:29 Benztropine Mesylate 0.5 Mg Tablet PO DAILY PRN EPS Diphenhydramine HCl 50 mg 10/12/20 16:32 Diphenhydramine Hcl 25 Mg Tablet PO Q4H PRN agitation Haloperidol 5 mg 10/12/20 16:32 Haloperidol 5 Mg Tablet PO Q4H PRN agitation Hydroxyzine HCl 25 mg 10/11/20 22:53 Hydroxyzine Hcl 25 Mg Tablet PO BEDTIME PRN Anxiety Lorazepam 2 mg 10/12/20 16:32 Lorazepam 1 Mg Tablet PO Q4H PRN agitation Magnesium Hydroxide 30 ml 10/11/20 22:53 Milk Of Magnesia 30 Ml Oral.Susp PO DAILY PRN Constipation Melatonin 6 mg 10/11/20 21:00 10/14/20 22:21 Melatonin 3 Mg Tablet PO 6 mg BEDTIME [facility] Administration Nicotine 14 mg 10/14/20 12:22 Nicotine 14 Mg Patch.Td24 TRANSDERMA DAILY PRN nicotine cessation Nicotine Polacrilex 4 mg 10/11/20 22:53 Nicotine Polacrilex 2 Mg Gum BUCCAL Q2H PRN Nicotine Cravings Olanzapine 10 mg 10/12/20 15:58 Olanzapine 10 Mg Vial IM DAILY PRN GIVE IF REFUSES PO Olanzapine 40 mg 10/15/20 21:00 Olanzapine 10 Mg Tablet PO BEDTIME [facility] Pharmacy Consult 1 each 10/11/20 10:46 Consult Rx Perform Med Rec MISCELLANE ONCE PRN Consult order Pharmacy Consult 1 each 10/13/20 14:28 Consult Rx Perform Med Rec MISCELLANE ONCE PRN Consult order Trazodone HCl 50 mg 10/11/20 22:53 Trazodone Hcl 50 Mg Tablet PO BEDTIME PRN Insomnia Allergies Allergies Allergy/AdvReac Type Severity Reaction Status Date / Time ofloxacin [From Floxin] Allergy Unknown Unknown Verified 10/11/20 10:46 prednisone AdvReac Unknown Unknown Verified 10/11/20 10:46 Assessment & Plan Assessment & Plan (1) Chronic schizophrenia: Status: Acute Code(s): F20.9 - Schizophrenia, unspecified (2) Medical non-compliance: Status: Acute Code(s): Z91.19 - Patient's noncompliance with other medical treatment and regimen Assessment and Plan: IMPRESSION: patient is a 45-year-old male with chronic psychotic disorder, assaultive behavior, on a community Champion, and currently living in a [facility] to subsidize apartment who presents for worsening psychotic symptoms and the face of refusing medications. Patient is malodorous, currently with blunted affect and moderately disorganized. patient cannot explain why he stopped taking his medications but says that he will take them now and did in fact take last night it's bedtime dose. He denies any SI, HI or AVH however he presents as internally preoccupied with thought blocking. He is currently on a community Champion. Will admit for safety and stabilization. pt taking meds; remains disorganized, standing in one place in hallway for hours, but improving; internally preoccupied but inappropriate or problematic behavioral med rec complete and pt's zyprexa verified and titrated to 40mg; pt showing improvement as he has started to initiate conversation continue treatment plan PLAN: 3 day notice Patient is under community Champion valid until 2021 Titrate Zyprexa to 40mg (although typical max dose is 20mg, 40 mg is patients normal home dose) ordered Zyprexa IM 10 mg p.r.n. if patient refuses p.o. medication will titrate Zyprexa to home dose once it is verified and will continue other medications Team will discuss case with case integrated logistics programs director at [facility]. will add a p.r.n. medication for agitation Greater than 50% of the session was spent on counseling and/or coordination of care Reason for contiued inpatient stay Substantial Risk for: rapid decompensation
[2020-10-15 16:51] VITALS: BP 117/67; PULSE 75; RESP 16; TEMP 36.1; O2SAT 97
[2020-10-15] MEDS: OLANZapine 10 MG TABLET 40 MG PO (20:29)
[2020-10-15] MEDS: Melatonin 3 MG TABLET 6 MG PO (20:30)
[2020-10-16 09:00] VITALS: BP 154/85; PULSE 78; RESP 18; TEMP 36.6; O2SAT 97
[2020-10-16 16:20] VITALS: BP 107/63; PULSE 73; TEMP 35.9
--- NOTE | 2020-10-16 16:52 | P.PNPSI_ITS ---
Subjective Subjective Date of Service: 10/16/20 Reason For Visit: Med non compliance Interim History: pt standing in hallway, outside his room for hours. Pt ordered food, but then refused it, asks for milk then refuses it; he approached automobile service writer and specifically asked for Ensure TID, repeating his request for 3xday, but then when it was brought he refused it and could not or would not say why. He again asked automobile service writer if he could transfer to another unit; when asked why he said I don't want to say why.. Pt also expressed worry that he'd lose his apartment if he stayed longer to which automobile service writer reassured pt that was not the case and that SW can call his staff tomorrow to ensure. Yesterday pt said he would shower today; however today he said that he already did shower today and has for the past 4 days, something nursing denies. While patient has reached out to talk w/ automobile service writer the last 2 days, something new, some staff is concerned he's not taking his medications somehow, though nursing has been watching closely. Will switch to Zydis in case. Mental Status Exam Mental Status Exam Narrative: Pt is alert and oriented; behavior is minimally cooperative, still disorganized; patient is not in distress; dressed in casual attire. remains malodorous; mood is described as good but affect blunted, vacant; eye contact more consistent; Speech latency but a little more spontaneous; otherwise normal rate, volume and prosody and not pressured; no psychomotor agitation; thought process is goal directed and concrete; Thought content is sparse, on getting discharged; denies delusional content or paranoid ideations, however concern for paranoia since has hardly eaten anything since admitted; denies any SI/HI. Thought blocking present and appears internally preoccupied. Patients insight and judgment are impaired. Diagnostics Vital Signs (24Hr): Vital Signs - 24 hr 10/16/20 09:00 Temperature 98 F Pulse Rate 78 Respiratory Rate 18 Blood Pressure 154/85 H Pulse Oximetry 97 Body Mass Index 29.7 Labs Results: 10/11/20 11:08 10/11/20 11:08 Medications Medications Current Medications Generic Name Dose Route Start Last Admin Trade Name Freq PRN Reason Stop Dose Admin Acetaminophen 650 mg 10/11/20 22:53 Acetaminophen 325 Mg Tablet PO Q6H PRN Headache/Pain Mild Scale (1-3) Al Hydroxide/Mg Hydroxide 30 ml 10/11/20 22:53 Magnesium Hydrox/Alum Hydrox 30 Ml Oral.Susp PO Q6H PRN Heartburn/Nausea Benztropine Mesylate 0.5 mg 10/13/20 14:29 Benztropine Mesylate 0.5 Mg Tablet PO DAILY PRN EPS Diphenhydramine HCl 50 mg 10/12/20 16:32 Diphenhydramine Hcl 25 Mg Tablet PO Q4H PRN agitation Haloperidol 5 mg 10/12/20 16:32 Haloperidol 5 Mg Tablet PO Q4H PRN agitation Hydroxyzine HCl 25 mg 10/11/20 22:53 Hydroxyzine Hcl 25 Mg Tablet PO BEDTIME PRN Anxiety Lorazepam 2 mg 10/12/20 16:32 Lorazepam 1 Mg Tablet PO Q4H PRN agitation Magnesium Hydroxide 30 ml 10/11/20 22:53 Milk Of Magnesia 30 Ml Oral.Susp PO DAILY PRN Constipation Melatonin 6 mg 10/11/20 21:00 10/15/20 20:30 Melatonin 3 Mg Tablet PO 6 mg BEDTIME MARIA Administration Nicotine 14 mg 10/14/20 12:22 Nicotine 14 Mg Patch.Td24 TRANSDERMA DAILY PRN nicotine cessation Nicotine Polacrilex 4 mg 10/11/20 22:53 Nicotine Polacrilex 2 Mg Gum BUCCAL Q2H PRN Nicotine Cravings Olanzapine 10 mg 10/12/20 15:58 Olanzapine 10 Mg Vial IM DAILY PRN GIVE IF REFUSES PO Olanzapine 40 mg 10/15/20 21:00 10/15/20 20:29 Olanzapine 10 Mg Tablet PO 40 mg BEDTIME MARIA Administration Pharmacy Consult 1 each 10/11/20 10:46 Consult Rx Perform Med Rec MISCELLANE ONCE PRN Consult order Pharmacy Consult 1 each 10/13/20 14:28 Consult Rx Perform Med Rec MISCELLANE ONCE PRN Consult order Trazodone HCl 50 mg 10/11/20 22:53 Trazodone Hcl 50 Mg Tablet PO BEDTIME PRN Insomnia Allergies Allergies Allergy/AdvReac Type Severity Reaction Status Date / Time ofloxacin [From Floxin] Allergy Unknown Unknown Verified 10/11/20 10:46 prednisone AdvReac Unknown Unknown Verified 10/11/20 10:46 Assessment & Plan Assessment & Plan (1) Chronic schizophrenia: Status: Acute Code(s): F20.9 - Schizophrenia, unspecified (2) Medical non-compliance: Status: Acute Code(s): Z91.19 - Patient's noncompliance with other medical treatment and regimen Assessment and Plan: IMPRESSION: patient is a 45-year-old male with chronic psychotic disorder, assaultive behavior, on a community Champion, and currently living in a [facility] to subsidize apartment who presents for worsening psychotic symptoms and the face of refusing medications. Patient is malodorous, currently with blunted affect and moderately disorganized. patient cannot explain why he stopped taking his medications but says that he will take them now and did in fact take last night it's bedtime dose. He denies any SI, HI or AVH however he presents as internally preoccupied with thought blocking. He is currently on a community Champion. Will admit for safety and stabilization. pt taking meds; remains disorganized, standing in one place in hallway for hours, but improving; internally preoccupied but inappropriate or problematic behavioral med rec complete and pt's zyprexa verified and titrated to 40mg; pt showing improvement as he has started to initiate conversation switch to Zydis to ensure pt is getting full dose as there is some concern given marginal improvement PLAN: 3 day notice Patient is under community Champion valid until 2021 SWITCHING TO ZYDIS 40MG (already Titrated Zyprexa to 40mg (although typical max dose is 20mg, 40 mg is patients normal home dose) ordered Zyprexa IM 10 mg p.r.n. if patient refuses p.o. medication will titrate Zyprexa to home dose once it is verified and will continue other medications Team will discuss case with case senior technical program manager at [facility]. will add a p.r.n. medication for agitation Greater than 50% of the session was spent on counseling and/or coordination of care Reason for contiued inpatient stay Substantial Risk for: rapid decompensation
[2020-10-16] MEDS: OLANZapine ODT 10 MG TAB.RAPDIS 40 MG TRANSLINGU (21:31)
[2020-10-16] MEDS: Melatonin 3 MG TABLET 6 MG PO (21:31)
--- NOTE | 2020-10-17 08:48 | PC.NURSE ---
pt has not eaten breakfast or lunch for three days since i have been working. only drank 1 and a half milks observed by this commercial lines underwriter. does not respond to questions asked of him.cont to deny alonso of his room. yesterday attempted to give him sealed items such as ensure pudding or ensure drink. inially accepted the ensure drink then returned it to the nurses station unopened.
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
[2020-10-17] MEDS: OLANZapine ODT 10 MG TAB.RAPDIS 40 MG TRANSLINGU (21:01)
[2020-10-17] MEDS: Melatonin 3 MG TABLET 6 MG PO (21:02)
[2020-10-18 06:00] VITALS: BP 104/56; PULSE 89; RESP 18; TEMP 35.7; O2SAT 98
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
[2020-10-18 16:51] VITALS: BP 119/66; PULSE 78; RESP 16; TEMP 35.9; O2SAT 98
[2020-10-18] MEDS: OLANZapine ODT 10 MG TAB.RAPDIS 40 MG TRANSLINGU (20:58)
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
[2020-10-19 18:00] VITALS: BP 111/70; PULSE 76; RESP 18; TEMP 36.2; O2SAT 97
[2020-10-19] MEDS: OLANZapine ODT 10 MG TAB.RAPDIS 40 MG TRANSLINGU (20:17)
[2020-10-20 07:00] VITALS: BMI 29.7
--- NOTE | 2020-10-20 15:44 | HO.PSYCHPN ---
Subjective Subjective Date of Service: 10/20/20 Reason For Visit: Med non compliance Interim History: Patient mostly avoiding scientific writer, turning other way as scientific writer approaches. At 1 point in the day patient was willing to answer scientific writer's question about Ativan, saying he is not anxious and does not want it. He would not discuss anything else, looked away whenever scientific writer asked a question and eventually walked away refusing to speak. Cement Or Concrete Finishing Supervisor consulted with staff and he does speak with some nursing staff depending on who it is. He has been eating and drinking food that his mother brought him though it is minimal. Patient mostly pacing hallways. He remains disheveled and malodorous. Mental Status Exam Mental Status Exam Narrative: Pt is alert; behavior is not cooperative, disorganized; patient is not in distress; dressed in casual attire; unkempt and malodorous; mood guarded, suspicious; affect constricted or vacant; eye contact avoidant; Speech: selectively mute; thought process: concrete; selectively mute with scientific writer; Thought content: selectively mute, unable to assess.; concern for paranoia; denied any SI/HI to staff; Thought blocking present and appears internally preoccupied. Patients insight and judgment are impaired. Diagnostics Vital Signs (24Hr): Vital Signs - 24 hr 10/19/20 18:00 Temperature 97.1 F Pulse Rate 76 Respiratory Rate 18 Blood Pressure 111/70 Pulse Oximetry 97 Body Mass Index 29.7 Labs Results: 10/11/20 11:08 10/11/20 11:08 Medications Medications Current Medications Generic Name Dose Route Start Last Admin Trade Name Freq PRN Reason Stop Dose Admin Acetaminophen 650 mg 10/11/20 22:53 Acetaminophen 325 Mg Tablet PO Q6H PRN Headache/Pain Mild Scale (1-3) Al Hydroxide/Mg Hydroxide 30 ml 10/11/20 22:53 Magnesium Hydrox/Alum Hydrox 30 Ml Oral.Susp PO Q6H PRN Heartburn/Nausea Benztropine Mesylate 0.5 mg 10/13/20 14:29 Benztropine Mesylate 0.5 Mg Tablet PO DAILY PRN EPS Diphenhydramine HCl 50 mg 10/12/20 16:32 Diphenhydramine Hcl 25 Mg Tablet PO Q4H PRN agitation Haloperidol 5 mg 10/12/20 16:32 Haloperidol 5 Mg Tablet PO Q4H PRN agitation Hydroxyzine HCl 25 mg 10/11/20 22:53 Hydroxyzine Hcl 25 Mg Tablet PO BEDTIME PRN Anxiety Lorazepam 1 mg 10/18/20 09:00 10/20/20 14:14 Lorazepam 1 Mg Tablet PO Not Given TID MARIA Magnesium Hydroxide 30 ml 10/11/20 22:53 Milk Of Magnesia 30 Ml Oral.Susp PO DAILY PRN Constipation Melatonin 6 mg 10/11/20 21:00 10/19/20 20:24 Melatonin 3 Mg Tablet PO Not Given BEDTIME MARIA Nicotine 14 mg 10/14/20 12:22 Nicotine 14 Mg Patch.Td24 TRANSDERMA DAILY PRN nicotine cessation Nicotine Polacrilex 4 mg 10/11/20 22:53 Nicotine Polacrilex 2 Mg Gum BUCCAL Q2H PRN Nicotine Cravings Olanzapine 10 mg 10/12/20 15:58 Olanzapine 10 Mg Vial IM DAILY PRN GIVE IF REFUSES PO Olanzapine 40 mg 10/16/20 21:00 10/19/20 20:17 Olanzapine Odt 10 Mg Tab.Rapdis TRANSLINGU 40 mg BEDTIME MARIA Administration Pharmacy Consult 1 each 10/11/20 10:46 Consult Rx Perform Med Rec MISCELLANE ONCE PRN Consult order Pharmacy Consult 1 each 10/13/20 14:28 Consult Rx Perform Med Rec MISCELLANE ONCE PRN Consult order Trazodone HCl 50 mg 10/11/20 22:53 Trazodone Hcl 50 Mg Tablet PO BEDTIME PRN Insomnia Allergies Allergies Allergy/AdvReac Type Severity Reaction Status Date / Time ofloxacin [From Floxin] Allergy Unknown Unknown Verified 10/11/20 10:46 prednisone AdvReac Unknown Unknown Verified 10/11/20 10:46 Assessment & Plan Assessment & Plan (1) Chronic schizophrenia: Status: Acute Code(s): F20.9 - Schizophrenia, unspecified (2) Medical non-compliance: Status: Acute Code(s): Z91.19 - Patient's noncompliance with other medical treatment and regimen Assessment and Plan: IMPRESSION: patient is a 45-year-old male with chronic psychotic disorder, assaultive behavior, on a community Champion, and currently living in a [facility] to subsidize apartment who presents for worsening psychotic symptoms and the face of refusing medications. Patient is malodorous, currently with blunted affect and moderately disorganized. patient cannot explain why he stopped taking his medications but says that he will take them now and did in fact take last night it's bedtime dose. He denies any SI, HI or AVH however he presents as internally preoccupied with thought blocking. He is currently on a community Champion. Will admit for safety and stabilization. Problem: Schizophrenia: -pt taking antipsychotic -remains disorganized, standing in one place in hallway for hours or pacing; internally preoccupied; no problematic behavioral -selectively mute with scientific writer; will intermittently talk with some other staff; malodorous; will only eat food brought by mother; will sometimes drink milk -No improvement despite being on Zydis 40mg for nearly a week switched to ZYDIS 40MG since little to no improvement (already Titrated Zyprexa to 40mg (although typical max dose is 20mg, 40 mg is patients normal home dose) ordered Zyprexa IM 10 mg p.r.n. if patient refuses p.o. medication -Filed for civil commitment. Pt is currently not safe to return to apartment where he lives on his own. -Community Champion valid until 2021 -Social Work got in touch with patient's a ACC team and clinical covering and lining supervisor Rosita oGodwin who reports that this is patient's 1st hospitalization in years and he is not at baseline. She thinks it is a good idea to file for civil commitment until he is once again stable. PLAN: Will consider switching to another medication on [facility] Champion, perhaps Haldol or Risperdal Patient is taking in some fluids daily; does not look unwell and is walking around. Thus far have not forced labs to assess kidney function Problem: Catanonia? -Some question of catatonia so added ativan, however, pt refused to take ativan pt does not seem to meet diagnostic criteria for Catatonia (has 2/12 symptoms: mutism and maybe some slight negativism), however this can by tricky to diagnose. pt's refusal to eat food seems more to do with paranoia then otherwise as he's been willing to eat things his mother brought, just not hospital food. on the one hand he's talking less...on the other hand he has been eating and drinking more (food mom brought) Plan: Asked nursing to document fluid intake Discussed case with Eleonora Thayer who reports that patient did in fact talk with her, discussed why he did not want ativan (not anxious); he also was witnessed talking some to a peer. Thus, much more likely patient's mutism is selective and less likely due to catatonic symptoms. Furthermore he is eating and drinking, though minimally and only food brought in by his mother. Patient however does reportedly have a history of catatonia so will keep this in mind. Greater than 50% of the session was spent on counseling and/or coordination of care Reason for contiued inpatient stay Substantial Risk for: rapid decompensation
[2020-10-20 18:00] VITALS: RESP 16
[2020-10-20] MEDS: OLANZapine ODT 10 MG TAB.RAPDIS 40 MG TRANSLINGU (20:53)
--- NOTE | 2020-10-20 21:54 | PC.NURSE ---
Pt ate a cheeseburger for dinner today
--- NOTE | 2020-10-21 15:36 | HO.PSYCHPN ---
Subjective Subjective Date of Service: 10/21/20 Reason For Visit: Med non compliance Interim History: Patient still remains selectively mute. He did answer junior copywriter a little bit today, the 1st time in several days. He said ?no? as to whether he needs anything and then when junior copywriter asked why he had not been talking to him, patient said I do not Wanna talk about it. That was the end of any dialogue. Otherwise patient mostly just stands in the hallway looking around, sometimes pacing the hallway. He is malodorous and continues to eat and drink very little. Later, junior copywriter approached patient and asked if nursing could get his vitals to which he said ?maybe later. ?He would not engage any further. Skiver Box Toe explained the concern over his kidney function given his very low fluid intake, the need to take his vitals/blood pressure and the need to get lab values. However, Patient would not respond nor look at junior copywriter. Medication Compliance: Yes Mental Status Exam Mental Status Exam Narrative: pt is alert; behavior is not cooperative, disorganized; patient is not in distress; dressed in casual attire; unkempt and malodorous; mood guarded, suspicious; affect constricted or vacant; eye contact avoidant; Speech: selectively mute; thought process: concrete; selectively mute with junior copywriter; Thought content: selectively mute, unable to assess; concern for paranoia; denied any SI/HI to staff; Thought blocking present and appears internally preoccupied. Patients insight and judgment are impaired. Diagnostics Vital Signs (24Hr): Vital Signs - 24 hr 10/20/20 18:00 Respiratory Rate 16 Body Mass Index 29.7 Labs Results: 10/11/20 11:08 10/11/20 11:08 Medications Medications Current Medications Generic Name Dose Route Start Last Admin Trade Name Freq PRN Reason Stop Dose Admin Acetaminophen 650 mg 10/11/20 22:53 Acetaminophen 325 Mg Tablet PO Q6H PRN Headache/Pain Mild Scale (1-3) Al Hydroxide/Mg Hydroxide 30 ml 10/11/20 22:53 Magnesium Hydrox/Alum Hydrox 30 Ml Oral.Susp PO Q6H PRN Heartburn/Nausea Benztropine Mesylate 0.5 mg 10/13/20 14:29 Benztropine Mesylate 0.5 Mg Tablet PO DAILY PRN EPS Diphenhydramine HCl 50 mg 10/12/20 16:32 Diphenhydramine Hcl 25 Mg Tablet PO Q4H PRN agitation Haloperidol 5 mg 10/12/20 16:32 Haloperidol 5 Mg Tablet PO Q4H PRN agitation Hydroxyzine HCl 25 mg 10/11/20 22:53 Hydroxyzine Hcl 25 Mg Tablet PO BEDTIME PRN Anxiety Lorazepam 1 mg 10/18/20 09:00 10/21/20 14:20 Lorazepam 1 Mg Tablet PO Not Given TID MARIA Magnesium Hydroxide 30 ml 10/11/20 22:53 Milk Of Magnesia 30 Ml Oral.Susp PO DAILY PRN Constipation Melatonin 6 mg 10/11/20 21:00 10/20/20 20:53 Melatonin 3 Mg Tablet PO Not Given BEDTIME MARIA Nicotine 14 mg 10/14/20 12:22 Nicotine 14 Mg Patch.Td24 TRANSDERMA DAILY PRN nicotine cessation Nicotine Polacrilex 4 mg 10/11/20 22:53 Nicotine Polacrilex 2 Mg Gum BUCCAL Q2H PRN Nicotine Cravings Olanzapine 10 mg 10/12/20 15:58 Olanzapine 10 Mg Vial IM DAILY PRN GIVE IF REFUSES PO Olanzapine 40 mg 10/16/20 21:00 10/20/20 20:53 Olanzapine Odt 10 Mg Tab.Rapdis TRANSLINGU 40 mg BEDTIME MARIA Administration Pharmacy Consult 1 each 10/11/20 10:46 Consult Rx Perform Med Rec MISCELLANE ONCE PRN Consult order Pharmacy Consult 1 each 10/13/20 14:28 Consult Rx Perform Med Rec MISCELLANE ONCE PRN Consult order Trazodone HCl 50 mg 10/11/20 22:53 Trazodone Hcl 50 Mg Tablet PO BEDTIME PRN Insomnia Allergies Allergies Allergy/AdvReac Type Severity Reaction Status Date / Time ofloxacin [From Floxin] Allergy Unknown Unknown Verified 10/11/20 10:46 prednisone AdvReac Unknown Unknown Verified 10/11/20 10:46 Assessment & Plan Assessment & Plan (1) Chronic schizophrenia: Status: Acute Code(s): F20.9 - Schizophrenia, unspecified (2) Medical non-compliance: Status: Acute Code(s): Z91.19 - Patient's noncompliance with other medical treatment and regimen Assessment and Plan: IMPRESSION: patient is a 45-year-old male with chronic psychotic disorder, assaultive behavior, on a [employer] Champion, and currently living in a [facility] to subsidize apartment who presents for worsening psychotic symptoms and the face of refusing medications. Patient is malodorous, currently with blunted affect and moderately disorganized. patient cannot explain why he stopped taking his medications but says that he will take them now and did in fact take last night it's bedtime dose. He denies any SI, HI or AVH however he presents as internally preoccupied with thought blocking. He is currently on a community Champion. Will admit for safety and stabilization. Problem: Schizophrenia: -pt taking antipsychotic -remains disorganized, standing in one place in hallway for hours or pacing; internally preoccupied; no problematic behavioral -selectively mute with junior copywriter; will intermittently talk with some other staff; malodorous; will only eat food brought by mother; will sometimes drink milk -No improvement despite being on Zydis 40mg for nearly a week switched to ZYDIS 40MG since little to no improvement (already Titrated Zyprexa to 40mg (although typical max dose is 20mg, 40 mg is patients normal home dose) ordered Zyprexa IM 10 mg p.r.n. if patient refuses p.o. medication -Filed for civil commitment. Pt is currently not safe to return to apartment where he lives on his own. -Community Champion valid until 2021 -Social Work got in touch with patient's a ACC team and clinical plastic sheets supervisor Rosita Goodwin who reports that this is patient's 1st hospitalization in years and he is not at baseline. She thinks it is a good idea to file for civil commitment until he is once again stable. PLAN: Will consider switching to another medication on [employer] [employer] Champion, perhaps Haldol or Risperdal Patient is taking in some fluids daily but very little; does not look unwell and is walking around. Pt has been refusing Vitals and refusing labs (Bun/Cr, lytes) Skiver Box Toe called and discussed case with hospitalist who recommended getting labwork to assess for kidney function as patient is at risk for RAFAEL pt is psychotic and disorganized which resulting in poor fluid intake. Though junior copywriter explained, patient is currently not able to understand the risks this poses to his physical health and the risks of not getting labwork to assess kidney function. Also due to his psychosis, he is not able to articulate a choice in the mater and remains mute despite repeated attempts to discuss, explain, ask questions. At this time patient lacks capacity to make medical decisions for himself. It is writers opinion that if patient was able to understand the situation, he would choose to do what was needed to protect his kidneys and body from harm. Skiver Box Toe consulted with hospitalist who agrees that labwork is necessary at this time to assess kidney function. Will again ask patient to comply but if not will use restraint as needed. Problem: Catanonia? -Some question of catatonia so added ativan, however, pt refused to take ativan pt does not seem to meet diagnostic criteria for Catatonia (has 2/12 symptoms: mutism and maybe some slight negativism), however this can by tricky to diagnose. pt's refusal to eat food seems more to do with paranoia then otherwise as he's been willing to eat things his mother brought, just not hospital food. on the one hand he's talking less...on the other hand he has been eating and drinking more (food mom brought) Plan: Asked nursing to document fluid intake Discussed case with Eleonora Thayer who reports that patient did in fact talk with her, discussed why he did not want ativan (not anxious); he also was witnessed talking some to a peer. Thus, much more likely patient's mutism is selective and less likely due to catatonic symptoms. Furthermore he is eating and drinking, though minimally and only food brought in by his mother. Patient however does reportedly have a history of catatonia so will keep this in mind. Greater than 50% of the session was spent on counseling and/or coordination of care Reason for contiued inpatient stay Substantial Risk for: inability to function and rapid decompensation
[2020-10-21 16:19] VITALS: BP 108/61; PULSE 70; TEMP 36.1
[2020-10-21 16:19] LABS: MANUAL DIFF FLAG NO
[2020-10-21 16:20] LABS: Basophils Absolute Auto 0.1 X10*3/uL (0.0-0.2); Basophils Percent Auto 0.6 % (0-2); Eosinophils Absolute Auto 0.2 X10*3/uL (0.0-0.4); Eosinophils Percent Auto 1.9 % (0-4); Hematocrit 44.5 % (42-52); Hemoglobin 14.9 g/dl (14.0-18.0); Imm Gran Abs Auto 0.02 X10*3/uL (0.00-0.03); Imm Gran Pct Auto 0.2 % (0.0-0.4); Lymphocytes Absolute Auto 3.4 X10*3/uL (1.2-4.9); Lymphocytes Percent Auto 37.9 % (20-40); Mean Corpuscular HGB Conc 33.5 g/dl (31.0-36.0); Mean Corpuscular Hemoglobin 30.7 pg (27.0-33.0); Mean Corpuscular Volume 91.8 fL (80-98); Mean Platelet Volume 10.8 fL (9.4-12.4); Monocytes Absolute Auto 0.6 X10*3/uL (0.1-1.2); Monocytes Percent Auto 6.8 % (2-11); Neutrophils Absolute Auto 4.7 X10*3/uL (2.0-8.3); Neutrophils Percent Auto 52.6 % (45-73); Platelet Count 183 X10*3/uL (160-400); Red Blood Count 4.85 X10*6/uL (4.60-5.80); Red Cell Distribution Width 12.5 % (11.0-16.0); White Blood Count 8.9 X10*3/uL (4.8-10.8)
[2020-10-21 16:50] LABS: Alanine Aminotransferase 10 U/L (0-40); Albumin Level 4.4 g/dL (3.5-5.0); Alkaline Phosphatase 63 U/L (39-117); Anion Gap 13 (12-20); Aspartate Amino Transferase 12 U/L (5-37); Bilirubin Direct 0.2 mg/dL (0.0-0.5); Bilirubin Total 0.6 mg/dL (0.0-1.0); Blood Urea Nitrogen 19 mg/dL (9-16); Carbon Dioxide 29 mmol/L (22-29); Chloride 104 mmol/L (96-108); Creatinine Clr Calc Pharmacy 107.3; Estimated Glomerular Filt Rate > 60; Potassium 4.6 mmol/L (3.3-5.1); Sodium 141 mmol/L (135-145); Total Protein 6.8 g/dL (6.5-8.0)
[2020-10-21] MEDS: OLANZapine ODT 10 MG TAB.RAPDIS 40 MG TRANSLINGU (20:09)
[2020-10-22 17:02] VITALS: BP 107/62; PULSE 107; RESP 18; TEMP 35.9; O2SAT 97
--- NOTE | 2020-10-22 17:21 | P.PNPSI_ITS ---
Subjective Subjective Date of Service: 10/22/20 Reason For Visit: Med non compliance Subjective Notes: Section 7 (Court 10/25/20) Guardianship: Yes ([employer]) Medical Problems Affecting Mental Status: No Interim History: Pt is visable, some pacing. Does not respond when addressed. Looking above others but appears attentive to activity in the environment. Court 10/25/20. Medication Compliance: Yes Side effects from medications: No Attending Groups: No Review of Systems Reports behavioral changes Psychiatric: Reports behavioral changes, Reports auditory hallucinations and Reports paranoia Mental Status Exam Mental Status Exam Patient Appearance: Disheveled Patient Orientation: Person Level of Consciousness: Alert Patient Behavior: Guarded, Suspicious, Wandering, Avoidant, Isolative, Pacing and Poor Eye Contact Mood Description: Blunted Affect Description: Blunted Patient Cognition Impaired: Yes Ability to Follow Directions: Poor Speech Pattern: No Speech Memory Description: Remote Impaired and Episodic Impaired Hallucinations: Auditory Delusions: Being Controlled, Paranoid Ideation and Present Perceptual Disturbances: Derealization Thought Process: Distracted, Rumination and Slowed Thinking Thought Content: positive for Perseveration, positive for Poverty of Content, positive for Thought Blocking and positive for Slowed Thinking Depressive Symptoms: Diff. Making Decisions and Difficulty Concentrating Abnormal Motor Activity Signs and Symptoms: Restlessness Judgement: Poor Diagnostics Vital Signs (24Hr): Vital Signs - 24 hr 10/22/20 17:02 Temperature 96.7 F L Pulse Rate 107 H Respiratory Rate 18 Blood Pressure 107/62 Pulse Oximetry 97 Body Mass Index 29.7 Labs Results: 10/21/20 16:14 10/21/20 16:14 Labs: Laboratory Results - last 48 hr 10/21/20 10/21/20 16:14 16:14 WBC 8.9 RBC 4.85 Hgb 14.9 Hct 44.5 MCV 91.8 MCH 30.7 MCHC 33.5 RDW 12.5 Plt Count 183 MPV 10.8 Immature Gran % (Auto) 0.2 Neut % (Auto) 52.6 Lymph % (Auto) 37.9 [place] % (Auto) 6.8 Eos % (Auto) 1.9 Baso % (Auto) 0.6 Lymph # (Auto) 3.4 [place] # (Auto) 0.6 Eos # (Auto) 0.2 Baso # (Auto) 0.1 Abs Immat Gran (auto) 0.02 Absolute Neuts (auto) 4.7 Absolute Nucleated RBC 0.000 Nucleated RBC % (auto) 0.0 Sodium 141 Potassium 4.6 D Chloride 104 Carbon Dioxide 29 Anion Gap 13 BUN 19 H Creatinine 1.01 Estim Creat Clear Calc 107.3 Estimated GFR > 60 Total Bilirubin 0.6 Direct Bilirubin 0.2 AST 12 ALT 10 Alkaline Phosphatase 63 Total Protein 6.8 Albumin 4.4 Medications Medications Current Medications Generic Name Dose Route Start Last Admin Trade Name Freq PRN Reason Stop Dose Admin Acetaminophen 650 mg 10/11/20 22:53 Acetaminophen 325 Mg Tablet PO Q6H PRN Headache/Pain Mild Scale (1-3) Al Hydroxide/Mg Hydroxide 30 ml 10/11/20 22:53 Magnesium Hydrox/Alum Hydrox 30 Ml Oral.Susp PO Q6H PRN Heartburn/Nausea Benztropine Mesylate 0.5 mg 10/13/20 14:29 Benztropine Mesylate 0.5 Mg Tablet PO DAILY PRN EPS Diphenhydramine HCl 50 mg 10/12/20 16:32 Diphenhydramine Hcl 25 Mg Tablet PO Q4H PRN agitation Haloperidol 5 mg 10/12/20 16:32 Haloperidol 5 Mg Tablet PO Q4H PRN agitation Hydroxyzine HCl 25 mg 10/11/20 22:53 Hydroxyzine Hcl 25 Mg Tablet PO BEDTIME PRN Anxiety Lorazepam 1 mg 10/18/20 09:00 10/22/20 14:38 Lorazepam 1 Mg Tablet PO Not Given TID MARIA Magnesium Hydroxide 30 ml 10/11/20 22:53 Milk Of Magnesia 30 Ml Oral.Susp PO DAILY PRN Constipation Melatonin 6 mg 10/11/20 21:00 10/21/20 20:10 Melatonin 3 Mg Tablet PO Not Given BEDTIME MARIA Nicotine 14 mg 10/14/20 12:22 Nicotine 14 Mg Patch.Td24 TRANSDERMA DAILY PRN nicotine cessation Nicotine Polacrilex 4 mg 10/11/20 22:53 Nicotine Polacrilex 2 Mg Gum BUCCAL Q2H PRN Nicotine Cravings Olanzapine 10 mg 10/12/20 15:58 Olanzapine 10 Mg Vial IM DAILY PRN GIVE IF REFUSES PO Olanzapine 40 mg 10/16/20 21:00 10/21/20 20:09 Olanzapine Odt 10 Mg Tab.Rapdis TRANSLINGU 40 mg BEDTIME [facility] Administration Pharmacy Consult 1 each 10/11/20 10:46 Consult Rx Perform Med Rec MISCELLANE ONCE PRN Consult order Pharmacy Consult 1 each 10/13/20 14:28 Consult Rx Perform Med Rec MISCELLANE ONCE PRN Consult order Trazodone HCl 50 mg 10/11/20 22:53 Trazodone Hcl 50 Mg Tablet PO BEDTIME PRN Insomnia Allergies Allergies Allergy/AdvReac Type Severity Reaction Status Date / Time ofloxacin [From Floxin] Allergy Unknown Unknown Verified 10/11/20 10:46 prednisone AdvReac Unknown Unknown Verified 10/11/20 10:46 Assessment & Plan Assessment & Plan (1) Chronic schizophrenia: Status: Acute Code(s): F20.9 - Schizophrenia, unspecified (2) Medical non-compliance: Status: Acute Code(s): Z91.19 - Patient's noncompliance with other medical treatment and regimen Assessment and Plan: Coverage: -Continue plan of care. IMPRESSION: patient is a 45-year-old male with chronic psychotic disorder, assaultive behavior, on a [employer], and currently living in a [facility] to subsidize apartment who presents for worsening psychotic symptoms and the face of refusing medications. Patient is malodorous, currently with blunted affect and moderately disorganized. patient cannot explain why he stopped taking his medications but says that he will take them now and did in fact take last night it's bedtime dose. He denies any SI, HI or AVH however he presents as internally preoccupied with thought blocking. He is currently on a [employer]. Will admit for safety and stabilization. Problem: Schizophrenia: -pt taking antipsychotic -remains disorganized, standing in one place in hallway for hours or pacing; internally preoccupied; no problematic behavioral -selectively mute with advertising copywriter; will intermittently talk with some other staff; malodorous; will only eat food brought by mother; will sometimes drink milk -No improvement despite being on Zydis 40mg for nearly a week switched to ZYDIS 40MG since little to no improvement (already Titrated Zyprexa to 40mg (although typical max dose is 20mg, 40 mg is patients normal home dose) ordered Zyprexa IM 10 mg p.r.n. if patient refuses p.o. medication -Filed for civil commitment. Pt is currently not safe to return to apartment where he lives on his own. -[employer] valid until 2021 -Social Work got in touch with patient's a ACC team and clinical picking supervisor Rosita Goodwin who reports that this is patient's 1st hospitalization in years and he is not at baseline. She thinks it is a good idea to file for civil commitment until he is once again stable. PLAN: Will consider switching to another medication on [employer], perhaps Haldol or Risperdal Patient is taking in some fluids daily but very little; does not look unwell and is walking around. Pt has been refusing Vitals and refusing labs (Bun/Cr, lytes) [employer] Specialist called and discussed case with hospitalist who recommended getting labwork to assess for kidney function as patient is at risk for RAFAEL pt is psychotic and disorganized which resulting in poor fluid intake. Though advertising copywriter explained, patient is currently not able to understand the risks this poses to his physical health and the risks of not getting labwork to assess kidney function. Also due to his psychosis, he is not able to articulate a choice in the mater and remains mute despite repeated attempts to discuss, explain, ask questions. At this time patient lacks capacity to make medical decisions for himself. It is writers opinion that if patient was able to understand the situation, he would choose to do what was needed to protect his kidneys and body from harm. [employer] consulted with hospitalist who agrees that labwork is necessary at this time to assess kidney function. Will again ask patient to comply but if not will use restraint as needed. Problem: Catanonia? -Some question of catatonia so added ativan, however, pt refused to take ativan pt does not seem to meet diagnostic criteria for Catatonia (has 05/20 symp toms: mutism and maybe some slight negativism), however this can by tricky to diagnose. pt's refusal to eat food seems more to do with paranoia then otherwise as he's been willing to eat things his mother brought, just not hospital food. on the one hand he's talking less...on the other hand he has been eating and drinking more (food mom brought) Plan: Asked nursing to document fluid intake Discussed case with Eleonora Thayer who reports that patient did in fact talk with her, discussed why he did not want ativan (not anxious); he also was witnessed talking some to a peer. Thus, much more likely patient's mutism is selective and less likely due to catatonic symptoms. Furthermore he is eating and drinking, though minimally and only food brought in by his mother. Patient however does reportedly have a history of catatonia so will keep this in mind. Greater than 50% of the session was spent on counseling and/or coordination of care Informed Consent: does not understand Reason for contiued inpatient stay Substantial Risk for: harm to self, inability to function and rapid decompensation
[2020-10-22] MEDS: OLANZapine ODT 10 MG TAB.RAPDIS 40 MG TRANSLINGU (20:12)
--- NOTE | 2020-10-23 14:42 | P.PNPSI_ITS ---
Subjective Subjective Date of Service: 10/23/20 Reason For Visit: Schizophrenia Interim History: Micky continues to be observant at times on the periphery of the milieu. He does not interact verbally, has periods of brief intense eye contact and appears to be responding to internal stimuli. When one acknowledges him, he provides no verbal or physical acknowledgement of such recognition. There are periods of blank staring noted as well. He is compliant with Olanzapine. Review of Systems Reports behavioral changes Psychiatric: Reports behavioral changes, Reports auditory hallucinations, Reports paranoia, Reports visual hallucinations and Reports hallucinations Mental Status Exam Mental Status Exam Patient Appearance: Disheveled and Unkempt (at one point shoes appear to be on the wrong feet) Patient Orientation: Person Level of Consciousness: Awake, Restless and Alert Patient Behavior: Guarded, Suspicious, Restless, Anxious, Fearful, Avoidant, Distractible, Isolative, Pacing and Poor Eye Contact Mood Description: Blunted Affect Description: Blunted Patient Cognition Impaired: Yes Ability to Follow Directions: Poor Speech Pattern: Impoverished and No Speech Hallucinations: Auditory Delusions: Paranoid Ideation and Present Perceptual Disturbances: Depersonalization and Derealization Thought Process: Distracted and Evasive Thought Content: positive for Perseveration and positive for Evasive Depressive Symptoms: Difficulty Concentrating Abnormal Motor Activity Signs and Symptoms: Restlessness Judgement: Poor Diagnostics Vital Signs (24Hr): Vital Signs - 24 hr 10/22/20 17:02 Temperature 96.7 F L Pulse Rate 107 H Respiratory Rate 18 Blood Pressure 107/62 Pulse Oximetry 97 Body Mass Index 29.7 Labs Results: 10/21/20 16:14 10/21/20 16:14 Labs: Laboratory Results - last 48 hr 10/21/20 10/21/20 16:14 16:14 WBC 8.9 RBC 4.85 Hgb 14.9 Hct 44.5 MCV 91.8 MCH 30.7 MCHC 33.5 RDW 12.5 Plt Count 183 MPV 10.8 Immature Gran % (Auto) 0.2 Neut % (Auto) 52.6 Lymph % (Auto) 37.9 [place] % (Auto) 6.8 Eos % (Auto) 1.9 Baso % (Auto) 0.6 Lymph # (Auto) 3.4 [place] # (Auto) 0.6 Eos # (Auto) 0.2 Baso # (Auto) 0.1 Abs Immat Gran (auto) 0.02 Absolute Neuts (auto) 4.7 Absolute Nucleated RBC 0.000 Nucleated RBC % (auto) 0.0 Sodium 141 Potassium 4.6 D Chloride 104 Carbon Dioxide 29 Anion Gap 13 BUN 19 H Creatinine 1.01 Estim Creat Clear Calc 107.3 Estimated GFR > 60 Total Bilirubin 0.6 Direct Bilirubin 0.2 AST 12 ALT 10 Alkaline Phosphatase 63 Total Protein 6.8 Albumin 4.4 Medications Medications Current Medications Generic Name Dose Route Start Last Admin Trade Name Freq PRN Reason Stop Dose Admin Acetaminophen 650 mg 10/11/20 22:53 Acetaminophen 325 Mg Tablet PO Q6H PRN Headache/Pain Mild Scale (1-3) Al Hydroxide/Mg Hydroxide 30 ml 10/11/20 22:53 Magnesium Hydrox/Alum Hydrox 30 Ml Oral.Susp PO Q6H PRN Heartburn/Nausea Benztropine Mesylate 0.5 mg 10/13/20 14:29 Benztropine Mesylate 0.5 Mg Tablet PO DAILY PRN EPS Diphenhydramine HCl 50 mg 10/12/20 16:32 Diphenhydramine Hcl 25 Mg Tablet PO Q4H PRN agitation Haloperidol 5 mg 10/12/20 16:32 Haloperidol 5 Mg Tablet PO Q4H PRN agitation Hydroxyzine HCl 25 mg 10/11/20 22:53 Hydroxyzine Hcl 25 Mg Tablet PO BEDTIME PRN Anxiety Magnesium Hydroxide 30 ml 10/11/20 22:53 Milk Of Magnesia 30 Ml Oral.Susp PO DAILY PRN Constipation Melatonin 6 mg 10/11/20 21:00 10/22/20 20:22 Melatonin 3 Mg Tablet PO Not Given BEDTIME MARIA Nicotine 14 mg 10/14/20 12:22 Nicotine 14 Mg Patch.Td24 TRANSDERMA DAILY PRN nicotine cessation Nicotine Polacrilex 4 mg 10/11/20 22:53 Nicotine Polacrilex 2 Mg Gum BUCCAL Q2H PRN Nicotine Cravings Olanzapine 10 mg 10/12/20 15:58 Olanzapine 10 Mg Vial IM DAILY PRN GIVE IF REFUSES PO Olanzapine 40 mg 10/16/20 21:00 10/22/20 20:12 Olanzapine Odt 10 Mg Tab.Rapdis TRANSLINGU 40 mg BEDTIME MARIA Administration Pharmacy Consult 1 each 10/11/20 10:46 Consult Rx Perform Med Rec MISCELLANE ONCE PRN Consult order Pharmacy Consult 1 each 10/13/20 14:28 Consult Rx Perform Med Rec MISCELLANE ONCE PRN Consult order Trazodone HCl 50 mg 10/11/20 22:53 Trazodone Hcl 50 Mg Tablet PO BEDTIME PRN Insomnia Allergies Allergies Allergy/AdvReac Type Severity Reaction Status Date / Time ofloxacin [From Floxin] Allergy Unknown Unknown Verified 10/11/20 10:46 prednisone AdvReac Unknown Unknown Verified 10/11/20 10:46 Assessment & Plan Assessment & Plan (1) Chronic schizophrenia: Status: Acute Code(s): F20.9 - Schizophrenia, unspecified (2) Medical non-compliance: Status: Acute Code(s): Z91.19 - Patient's noncompliance with other medical treatment and regimen Assessment and Plan: Coverage: -Continue plan of care. IMPRESSION: patient is a 45-year-old male with chronic psychotic disorder, assaultive behavior, on a [employer], and currently living in a [facility] to subsidize apartment who presents for worsening psychotic symptoms and the face of refusing medications. Patient is malodorous, currently with blunted affect and moderately disorganized. patient cannot explain why he stopped taking his medications but says that he will take them now and did in fact take last night it's bedtime dose. He denies any SI, HI or AVH however he presents as in ternally preoccupied with thought blocking. He is currently on a [employer]. Will admit for safety and stabilization. Problem: Schizophrenia: -pt taking antipsychotic -remains disorganized, standing in one place in hallway for hours or pacing; internally preoccupied; no problematic behavioral -selectively mute with sba underwriter; will intermittently talk with some other staff; malodorous; will only eat food brought by mother; will sometimes drink milk -No improvement despite being on Zydis 40mg for nearly a week switched to ZYDIS 40MG since little to no improvement (already Titrated Zyprexa to 40mg (although typical max dose is 20mg, 40 mg is patients normal michelle e dose) ordered Zyprexa IM 10 mg p.r.n. if patient refuses p.o. medication -Filed for civil commitment. Pt is currently not safe to return to apartment where he lives on his own. -[employer] valid until 2021 -Social Work got in touch with patient's a ACC team and clinical used car sales supervisor Rosiat Goodwin who reports that this is patient's 1st hospitalization in years and he is not at baseline. She thinks it is a good idea to file for civil commitment until he is once again stable. PLAN: Will consider switching to another medication on [employer], perhaps Haldol or Risperdal Patient is taking in some fluids daily but very little; does not look unwell and is walking around. Pt has been refusing Vitals and refusing labs (Bun/Cr, lytes) [employer] Driver called and discussed case with hospitalist who recommended getting labwork to assess for kidney function as patient is at risk for RAFAEL pt is psychotic and disorganized which resulting in poor fluid intake. Though sba underwriter explained, patient is currently not able to understand the risks this poses to his physical health and the risks of not getting labwork to assess kidney function. Also due to his psychosis, he is not able to articulate a choice in the mater and remains mute despite repeated attempts to discuss, explain, ask questions. At this time patient lacks capacity to make medical decisions for himself. It is writers opinion that if patient was able to understand the situation, he would choose to do what was needed to protect his kidneys and body from harm. [employer] Driver consulted with hospitalist who agrees that labwork is necessary at this time to assess kidney function. Will again ask patient to comply but if not will use restraint as needed. Problem: Catanonia? -Some question of catatonia so added ativan, however, pt refused to take ativan pt does not seem to meet diagnostic criteria for Catatonia (has 2/12 symptoms: mutism and maybe some slight negativism), however this can by tricky to diagnose. pt's refusal to eat food seems more to do with paranoia then otherwise as he's been willing to eat things his mother brought, just not hospital food. on the one hand he's talking less...on the other hand he has been eating and drinking more (food mom brought) Plan: Asked nursing to document fluid intake Discussed case with Eleonora Thayer who reports that patient did in fact talk with her, discussed why he did not want ativan (not anxious); he also was witnessed talking some to a peer. Thus, much more likely patient's mutism is selective and less likely due to catatonic symptoms. Furthermore he is eating and drinking, though minimally and only food brought in by his mother. Patient however does reportedly have a history of catatonia so will keep this in mind. Greater than 50% of the session was spent on counseling and/or coordination of care Reason for contiued inpatient stay Substantial Risk for: harm to self, harm to others, inability to function and rapid decompensation
[2020-10-23] MEDS: OLANZapine ODT 10 MG TAB.RAPDIS 40 MG TRANSLINGU (20:28)
--- NOTE | 2020-10-24 09:24 | P.PNPSI_ITS ---
Subjective Subjective Date of Service: 10/24/20 Reason For Visit: Schizophrenia Subjective Notes: Champion Order and Section 7 Medical Problems Affecting Mental Status: No Interim History: Patient mostly mute not answering questions looks intensely seems paranoid and apprehensive he has been taking olanzapine at bedtime remains mostly mute intense restricted eating drinking Medication Compliance: Intermittent Mental Status Exam Mental Status Exam Patient Appearance: Disheveled and Unkempt (at one point shoes appear to be on the wrong feet) Patient Orientation: Person Level of Consciousness: Awake, Restless and Alert Patient Behavior: Guarded, Suspicious, Restless, Anxious, Fearful, Avoidant, Distractible, Isolative, Pacing and Poor Eye Contact Mood Description: Blunted Affect Description: Blunted Patient Cognition Impaired: Yes Ability to Follow Directions: Poor Speech Pattern: Impoverished and No Speech Hallucinations: Auditory Delusions: Paranoid Ideation and Present Perceptual Disturbances: Depersonalization and Derealization Thought Process: Distracted and Evasive Thought Content: positive for Perseveration and positive for Evasive Depressive Symptoms: Difficulty Concentrating Abnormal Motor Activity Signs and Symptoms: Restlessness Judgement: Poor Diagnostics Vital Signs (24Hr): Body Mass Index 29.7 Labs Results: 10/21/20 16:14 10/21/20 16:14 Medications Medications Current Medications Generic Name Dose Route Start Last Admin Trade Name Freq PRN Reason Stop Dose Admin Acetaminophen 650 mg 10/11/20 22:53 Acetaminophen 325 Mg Tablet PO Q6H PRN Headache/Pain Mild Scale (1-3) Al Hydroxide/Mg Hydroxide 30 ml 10/11/20 22:53 Magnesium Hydrox/Alum Hydrox 30 Ml Oral.Susp PO Q6H PRN Heartburn/Nausea Benztropine Mesylate 0.5 mg 10/13/20 14:29 Benztropine Mesylate 0.5 Mg Tablet PO DAILY PRN EPS Diphenhydramine HCl 50 mg 10/12/20 16:32 Diphenhydramine Hcl 25 Mg Tablet PO Q4H PRN agitation Haloperidol 5 mg 10/12/20 16:32 Haloperidol 5 Mg Tablet PO Q4H PRN agitation Hydroxyzine HCl 25 mg 10/11/20 22:53 Hydroxyzine Hcl 25 Mg Tablet PO BEDTIME PRN Anxiety Magnesium Hydroxide 30 ml 10/11/20 22:53 Milk Of Magnesia 30 Ml Oral.Susp PO DAILY PRN Constipation Melatonin 6 mg 10/11/20 21:00 10/23/20 20:29 Melatonin 3 Mg Tablet PO Not Given BEDTIME MARIA Nicotine 14 mg 10/14/20 12:22 Nicotine 14 Mg Patch.Td24 TRANSDERMA DAILY PRN nicotine cessation Nicotine Polacrilex 4 mg 10/11/20 22:53 Nicotine Polacrilex 2 Mg Gum BUCCAL Q2H PRN Nicotine Cravings Olanzapine 10 mg 10/12/20 15:58 Olanzapine 10 Mg Vial IM DAILY PRN GIVE IF REFUSES PO Olanzapine 40 mg 10/16/20 21:00 10/23/20 20:28 Olanzapine Odt 10 Mg Tab.Rapdis TRANSLINGU 40 mg BEDTIME MARIA Administration Pharmacy Consult 1 each 10/11/20 10:46 Consult Rx Perform Med Rec MISCELLANE ONCE PRN Consult order Pharmacy Consult 1 each 10/13/20 14:28 Consult Rx Perform Med Rec MISCELLANE ONCE PRN Consult order Trazodone HCl 50 mg 10/11/20 22:53 Trazodone Hcl 50 Mg Tablet PO BEDTIME PRN Insomnia Allergies Allergies Allergy/AdvReac Type Severity Reaction Status Date / Time ofloxacin [From Floxin] Allergy Unknown Unknown Verified 10/11/20 10:46 prednisone AdvReac Unknown Unknown Verified 10/11/20 10:46 Assessment & Plan Assessment & Plan (1) Chronic schizophrenia: Status: Acute Code(s): F20.9 - Schizophrenia, unspecified (2) Medical non-compliance: Status: Acute Code(s): Z91.19 - Patient's noncompliance with other medical treatment and regimen Assessment and Plan: Coverage: -Continue plan of care. IMPRESSION: patient is a 45-year-old male with chronic psychotic disorder, assaultive behavior, on a community Champion, and currently living in a [facility] to subsidize apartment who presents for worsening psychotic symptoms and the face of refusing medications. Patient is malodorous, currently with blunted affect and moderately disorganized. patient cannot explain why he stopped taking his medications but says that he will take them now and did in fact take last night it's bedtime dose. He denies any SI, HI or AVH however he presents as inter colleen preoccupied with thought blocking. He is currently on a community Champion. Will admit for safety and stabilization. Patient does have a probate Champion Section 7 and treatment order has been filed court hearing put off for 1 week since patient has become cooperative with taking medication although he remains mute Problem: Schizophrenia: -pt taking antipsychotic -remains disorganized, standing in one place in hallway for hours or pacing; internally preoccupied; no problematic behavioral -selectively mute with consumer loan underwriter; will intermittently talk with some other staff; malodorous; will only eat food brought by mother; will sometimes drink milk -No improvement despite being on Zydis 40mg for nearly a week switched to ZYDIS 40MG since little to no improvement (already Titrated Zyprexa to 40mg (although typical max dose is 20mg, 40 mg is patients normal home dose) ordered Zyprexa IM 10 mg p.r.n. if patient refuses p.o. medication -Filed for civil commitment. Pt is currently not safe to return to apartment where he lives on his own. -Community Champion valid until 2021 -Social Work got in touch with patient's a ACC team and clinical [employer] supervisor Rosita Goodwin who reports that this is patient's 1st hospitalization in years and he is not at baseline. She thinks it is a good idea to file for civil commitment until he is once again stable. PLAN: Will consider switching to another medication on [facility] Champion, perhaps Hald ol or Risperdal Patient is taking in some fluids daily but very little; does not look unwell and is walking around. Pt has been refusing Vitals and refusing labs (Bun/Cr, lytes) Search Engine Marketing Specialist called and discussed case with hospitalist who recommended getting labwork to assess for kidney function as patient is at risk for RAFAEL pt is psychotic and disorganized which resulting in poor fluid intake. Though consumer loan underwriter explained, patient is currently not able to understand the risks this poses to his physical health and the risks of not getting labwork to assess kidney function. Also due to his psychosis, he is not able to articulate a choice in the mater and remains mute despite repeated attempts to discuss, explain, ask questions. At this time patient lacks capacity to make medical decisions for himself. It is writers opinion that if patient was able to understand the situation, he would choose to do what was needed to protect his kidneys and body from harm. Search Engine Marketing Specialist consulted with hospitalist who agrees that labwork is necessary at this time to assess kidney function. Will again ask patient to comply but if not will use restraint as needed. Check olanzapine level Problem: Catanonia? Strongly encourage Ativan trial Asked nursing to document fluid intake Discussed case with Eleonora Thayer who reports that patient did in fact talk with her, discussed why he did not want ativan (not anxious); he also was witnessed talking some to a peer. Thus, much more likely patient's mutism is selective and less likely due to catatonic symptoms. Furthermore he is eating and drinking, though minimally and only food brought in by his mother. Patient however does reportedly have a history of catatonia so will keep this in mind. Greater than 50% of the session was spent on counseling and/or coordination of care Reason for contiued inpatient stay Substantial Risk for: inability to function and rapid decompensation
--- NOTE | 2020-10-24 14:04 | PC.NURSE ---
refused vital signs
[2020-10-24] MEDS: OLANZapine ODT 10 MG TAB.RAPDIS 40 MG TRANSLINGU (20:40)
[2020-10-25 16:55] VITALS: RESP 18
[2020-10-25] MEDS: OLANZapine ODT 10 MG TAB.RAPDIS 40 MG TRANSLINGU (20:05)
--- NOTE | 2020-10-25 22:56 | P.PNPSI_ITS ---
Subjective Subjective Date of Service: 10/25/20 Reason For Visit: Schizophrenia Subjective Notes: Champion Order and Section 7 Interim History: Patient's court hearing delayed x1 week patient has been taking olanzapine 40 mg at bedtime. He was more verbal. He remains preoccupied but was able to have a conversation about his art stopping his medication prior to admission. He was able to take in information about the need show that he can care for himself prior to discharge including food he did ask for hamburgers. Medication Compliance: Yes Attending Groups: No Mental Status Exam Mental Status Exam Narrative: Patient had more spontaneous speech he was able to asked when he could leave and about paying his rent. 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 He continued to have thought blocking and look around and paranoid stare. He denied hallucinations he denies thoughts of harm to himself or others. Could not explain why he was not eating or taking in nutrition properly but did seem more open to it Patient Appearance: Unkempt (at one point shoes appear to be on the wrong feet) Patient Orientation: Person and Place Level of Consciousness: Awake and Alert Patient Behavior: Guarded, Suspicious, Anxious, Avoidant, Distractible, Isolative and Poor Eye Contact Mood Description: Anxious, Blunted and Apprehensive Affect Description: Blunted Patient Cognition Impaired: Yes Ability to Follow Directions: Poor Speech Pattern: Impoverished Delusions: Paranoid Ideation and Present Perceptual Disturbances: Depersonalization and Derealization Thought Process: Distracted and Evasive Thought Content: positive for Perseveration and positive for Evasive Depressive Symptoms: Difficulty Concentrating Abnormal Motor Activity Signs and Symptoms: Restlessness Judgement: Poor Diagnostics Vital Signs (24Hr): Vital Signs - 24 hr 10/25/20 16:55 Respiratory Rate 18 Body Mass Index 29.7 Labs Results: 10/21/20 16:14 10/21/20 16:14 Medications Medications Current Medications Generic Name Dose Route Start Last Admin Trade Name Freq PRN Reason Stop Dose Admin Acetaminophen 650 mg 10/11/20 22:53 Acetaminophen 325 Mg Tablet PO Q6H PRN Headache/Pain Mild Scale (1-3) Al Hydroxide/Mg Hydroxide 30 ml 10/11/20 22:53 Magnesium Hydrox/Alum Hydrox 30 Ml Oral.Susp PO Q6H PRN Heartburn/Nausea Benztropine Mesylate 0.5 mg 10/13/20 14:29 Benztropine Mesylate 0.5 Mg Tablet PO DAILY PRN EPS Diphenhydramine HCl 50 mg 10/12/20 16:32 Diphenhydramine Hcl 25 Mg Tablet PO Q4H PRN agitation Haloperidol 5 mg 10/12/20 16:32 Haloperidol 5 Mg Tablet PO Q4H PRN agitation Hydroxyzine HCl 25 mg 10/11/20 22:53 Hydroxyzine Hcl 25 Mg Tablet PO BEDTIME PRN Anxiety Magnesium Hydroxide 30 ml 10/11/20 22:53 Milk Of Magnesia 30 Ml Oral.Susp PO DAILY PRN Constipation Melatonin 6 mg 10/11/20 21:00 10/25/20 20:08 Melatonin 3 Mg Tablet PO Not Given BEDTIME MARIA Nicotine 14 mg 10/14/20 12:22 Nicotine 14 Mg Patch.Td24 TRANSDERMA DAILY PRN nicotine cessation Nicotine Polacrilex 4 mg 10/11/20 22:53 Nicotine Polacrilex 2 Mg Gum BUCCAL Q2H PRN Nicotine Cravings Olanzapine 10 mg 10/12/20 15:58 Olanzapine 10 Mg Vial IM DAILY PRN GIVE IF REFUSES PO Olanzapine 40 mg 10/16/20 21:00 10/25/20 20:05 Olanzapine Odt 10 Mg Tab.Rapdis TRANSLINGU 40 mg BEDTIME [facility] Administration Pharmacy Consult 1 each 10/11/20 10:46 Consult Rx Perform Med Rec MISCELLANE ONCE PRN Consult order Pharmacy Consult 1 each 10/13/20 14:28 Consult Rx Perform Med Rec MISCELLANE ONCE PRN Consult order Trazodone HCl 50 mg 10/11/20 22:53 Trazodone Hcl 50 Mg Tablet PO BEDTIME PRN Insomnia Allergies Allergies Allergy/AdvReac Type Severity Reaction Status Date / Time ofloxacin [From Floxin] Allergy Unknown Unknown Verified 10/11/20 10:46 prednisone AdvReac Unknown Unknown Verified 10/11/20 10:46 Assessment & Plan Assessment & Plan (1) Chronic schizophrenia: Status: Acute Code(s): F20.9 - Schizophrenia, unspecified (2) Medical non-compliance: Status: Acute Code(s): Z91.19 - Patient's noncompliance with other medical treatment and regimen Assessment and Plan: care. IMPRESSION: patient is a 45-year-old male with chronic psychotic disorder, assaultive behavior, on a [employer], and currently living in a [facility] to subsidize apartment who presents for worsening psychotic symptoms and the face of refusing medications. Patient is malodorous, currently with blunted affect and moderately disorganized. patient cannot explain why he stopped taking his medications but says that he will take them now and did in fact take last night it's bedtime dose. He denies any SI, HI or AVH however he presents as internally preoccupied with thought blocking. He is currently on a [employer] Champion. Will admit for safety and stabilization. Patient does have a probate Champion Section 7 and treatment order has been filed court hearing put off for 1 week since patient has become cooperative with taking medication although he remains mute Problem: Schizophrenia: -pt taking antipsychotic -remains disorganized, standing in one place in hallway for hours or pacing; in ternally preoccupied; no problematic behavioral -selectively mute with medical technical writer; will intermittently talk with some other staff; malodorous; will only eat food brought by mother; will sometimes drink milk -No improvement despite being on Zydis 40mg for nearly a week switched to ZYDIS 40MG since little to no improvement (already Titrated Zyprexa to 40mg (although typical max dose is 20mg, 40 mg is patients normal home dose) ordered Zyprexa IM 10 mg p.r.n. if patient refuses p.o. medication -Filed for civil commitment. Pt is currently not safe to return to apartment where he lives on his own. -[employer] Champion valid until 2021 -Social Work got in touch with patient's a ACC team and clinical station supervisor Rosita Goodwin who reports that this is patient's 1st hospitalization in years and he is not at baseline. She thinks it is a good idea to file for civil commitment until he is once again stable. PLAN: Continue olanzapine 40 mg daily patient is more forthcoming and was able to engage in conversation. Monitor intake which trying get a better sense of patient's baseline Greater than 50% of the session was spent on counseling and/or coordination of care Reason for contiued inpatient stay Substantial Risk for: inability to function and rapid decompensation
[2020-10-26 16:20] VITALS: BP 111/66; PULSE 75; TEMP 36.2; O2SAT 98
[2020-10-26] MEDS: OLANZapine ODT 10 MG TAB.RAPDIS 40 MG TRANSLINGU (20:02)
[2020-10-27 07:00] VITALS: BMI 29.7
[2020-10-27 16:19] VITALS: BP 108/68; PULSE 70; RESP 18; TEMP 36.1; O2SAT 98
[2020-10-27] MEDS: OLANZapine ODT 10 MG TAB.RAPDIS 40 MG TRANSLINGU (20:27)
--- NOTE | 2020-10-27 22:51 | HO.PSYCHPN ---
Subjective Subjective Date of Service: 10/27/20 Reason For Visit: Schizophrenia Subjective Notes: Champion Order and Section 7 Interim History: Patient paranoid constricted affect thought blocking is electively mute some increased range of discussion patient agreeable to ensure in did have some dinner last night compliant with 40 mg olanzapine Mental Status Exam Mental Status Exam Narrative: Patient appears to be paranoid and fearful cannot explain behavior seems suspicious withdrawn guarded limited intake poor hygiene Patient Appearance: Unkempt (at one point shoes appear to be on the wrong feet) Patient Orientation: Person and Place Level of Consciousness: Awake and Alert Patient Behavior: Guarded, Suspicious, Anxious, Avoidant, Distractible, Isolative and Poor Eye Contact Mood Description: Anxious, Blunted and Apprehensive Affect Description: Blunted Patient Cognition Impaired: Yes Ability to Follow Directions: Poor Speech Pattern: Impoverished Delusions: Paranoid Ideation and Present Perceptual Disturbances: Depersonalization and Derealization Thought Process: Distracted and Evasive Thought Content: positive for Perseveration and positive for Evasive Depressive Symptoms: Difficulty Concentrating Abnormal Motor Activity Signs and Symptoms: Restlessness Judgement: Poor Diagnostics Vital Signs (24Hr): Vital Signs - 24 hr 10/27/20 16:19 Temperature 97.0 F Pulse Rate 70 Respiratory Rate 18 Blood Pressure 108/68 Pulse Oximetry 98 Body Mass Index 29.7 Labs Results: 10/21/20 16:14 10/21/20 16:14 Medications Medications Current Medications Generic Name Dose Route Start Last Admin Trade Name Freq PRN Reason Stop Dose Admin Acetaminophen 650 mg 10/11/20 22:53 Acetaminophen 325 Mg Tablet PO Q6H PRN Headache/Pain Mild Scale (1-3) Al Hydroxide/Mg Hydroxide 30 ml 10/11/20 22:53 Magnesium Hydrox/Alum Hydrox 30 Ml Oral.Susp PO Q6H PRN Heartburn/Nausea Benztropine Mesylate 0.5 mg 10/13/20 14:29 Benztropine Mesylate 0.5 Mg Tablet PO DAILY PRN EPS Diphenhydramine HCl 50 mg 10/12/20 16:32 Diphenhydramine Hcl 25 Mg Tablet PO Q4H PRN agitation Haloperidol 5 mg 10/12/20 16:32 Haloperidol 5 Mg Tablet PO Q4H PRN agitation Hydroxyzine HCl 25 mg 10/11/20 22:53 Hydroxyzine Hcl 25 Mg Tablet PO BEDTIME PRN Anxiety Magnesium Hydroxide 30 ml 10/11/20 22:53 Milk Of Magnesia 30 Ml Oral.Susp PO DAILY PRN Constipation Melatonin 6 mg 10/11/20 21:00 10/27/20 20:33 Melatonin 3 Mg Tablet PO Not Given BEDTIME MARIA Nicotine 14 mg 10/14/20 12:22 Nicotine 14 Mg Patch.Td24 TRANSDERMA DAILY PRN nicotine cessation Nicotine Polacrilex 4 mg 10/11/20 22:53 Nicotine Polacrilex 2 Mg Gum BUCCAL Q2H PRN Nicotine Cravings Olanzapine 10 mg 10/12/20 15:58 Olanzapine 10 Mg Vial IM DAILY PRN GIVE IF REFUSES PO Olanzapine 40 mg 10/16/20 21:00 10/27/20 20:27 Olanzapine Odt 10 Mg Tab.Rapdis TRANSLINGU 40 mg BEDTIME [facility] Administration Pharmacy Consult 1 each 10/11/20 10:46 Consult Rx Perform Med Rec MISCELLANE ONCE PRN Consult order Pharmacy Consult 1 each 10/13/20 14:28 Consult Rx Perform Med Rec MISCELLANE ONCE PRN Consult order Trazodone HCl 50 mg 10/11/20 22:53 Trazodone Hcl 50 Mg Tablet PO BEDTIME PRN Insomnia Allergies Allergies Allergy/AdvReac Type Severity Reaction Status Date / Time ofloxacin [From Floxin] Allergy Unknown Unknown Verified 10/11/20 10:46 prednisone AdvReac Unknown Unknown Verified 10/11/20 10:46 Assessment & Plan Assessment & Plan (1) Chronic schizophrenia: Status: Acute Code(s): F20.9 - Schizophrenia, unspecified (2) Medical non-compliance: Status: Acute Code(s): Z91.19 - Patient's noncompliance with other medical treatment and regimen Assessment and Plan: care. IMPRESSION: patient is a 45-year-old male with chronic psychotic disorder, assaultive behavior, on a [employer] and currently living in a [facility] to subsidize apartment who presents for worsening psychotic symptoms and the face of refusing medications. Patient is malodorous, currently with blunted affect and moderately disorganized. patient cannot explain why he stopped taking his medications but says that he will take them now and did in fact take last night it's bedtime dose. He denies any SI, HI or AVH however he presents as internally preoccupied with thought blocking. He is currently on a community Champion. Will admit for safety and stabilization. Patient does have a probate Champion Section 7 and treatment order has been filed court hearing put off for 1 week since patient has become cooperative with taking medication although he remains mute Problem: Schizophrenia: -pt taking antipsychotic Limited intake some improved nutrition took and half of supper which is some improvement. Check labs continue olanzapine Greater than 50% of the session was spent on counseling and/or coordination of care Reason for contiued inpatient stay Substantial Risk for: inability to function, rapid decompensation and med/psych decompensation
[2020-10-28 09:09] LABS: Alanine Aminotransferase 13 U/L (0-40); Albumin Level 4.3 g/dL (3.5-5.0); Alkaline Phosphatase 81 U/L (39-117); Anion Gap 13 (12-20); Aspartate Amino Transferase 15 U/L (5-37); Bilirubin Total 0.5 mg/dL (0.0-1.0); Blood Urea Nitrogen 26 mg/dL (9-16); Calcium 9.4 mg/dL (8.4-10.2); Carbon Dioxide 27 mmol/L (22-29); Chloride 104 mmol/L (96-108); Estimated Glomerular Filt Rate > 60; Glucose Fasting 106 mg/dL (60-99); Potassium 4.2 mmol/L (3.3-5.1); Sodium 140 mmol/L (135-145); Total Protein 6.6 g/dL (6.5-8.0)
[2020-10-28 16:15] VITALS: RESP 16
[2020-10-28] MEDS: OLANZapine ODT 10 MG TAB.RAPDIS 40 MG TRANSLINGU (20:07)
--- NOTE | 2020-10-28 23:39 | HO.PSYCHPN ---
Subjective Subjective Date of Service: 10/28/20 Reason For Visit: Schizophrenia Subjective Notes: Champion Order and Section 7 Interim History: For patient his anxious withdrawn paranoid going back to being nonverbal mute not responding paranoid suspicious withdrawn he had been eating more and was able to have a conversation with me 2 days ago. Medication Compliance: Yes (Reportedly compliant) Diagnostics Vital Signs (24Hr): Vital Signs - 24 hr 10/28/20 16:15 Respiratory Rate 16 Body Mass Index 29.7 Labs Results: 10/21/20 16:14 10/28/20 08:02 Labs: Laboratory Results - last 48 hr 10/28/20 08:02 Sodium 140 Potassium 4.2 Chloride 104 Carbon Dioxide 27 Anion Gap 13 BUN 26 H Creatinine 0.92 Estim Creat Clear Calc 118.0 Estimated GFR > 60 Fasting Glucose 106 H Calcium 9.4 Total Bilirubin 0.5 AST 15 ALT 13 Alkaline Phosphatase 81 D Total Protein 6.6 Albumin 4.3 Medications Medications Current Medications Generic Name Dose Route Start Last Admin Trade Name Freq PRN Reason Stop Dose Admin Acetaminophen 650 mg 10/11/20 22:53 Acetaminophen 325 Mg Tablet PO Q6H PRN Headache/Pain Mild Scale (1-3) Al Hydroxide/Mg Hydroxide 30 ml 10/11/20 22:53 Magnesium Hydrox/Alum Hydrox 30 Ml Oral.Susp PO Q6H PRN Heartburn/Nausea Benztropine Mesylate 0.5 mg 10/13/20 14:29 Benztropine Mesylate 0.5 Mg Tablet PO DAILY PRN EPS Diphenhydramine HCl 50 mg 10/12/20 16:32 Diphenhydramine Hcl 25 Mg Tablet PO Q4H PRN agitation Haloperidol 5 mg 10/12/20 16:32 Haloperidol 5 Mg Tablet PO Q4H PRN agitation Hydroxyzine HCl 25 mg 10/11/20 22:53 Hydroxyzine Hcl 25 Mg Tablet PO BEDTIME PRN Anxiety Magnesium Hydroxide 30 ml 10/11/20 22:53 Milk Of Magnesia 30 Ml Oral.Susp PO DAILY PRN Constipation Melatonin 6 mg 10/11/20 21:00 10/28/20 20:11 Melatonin 3 Mg Tablet PO Not Given BEDTIME MARIA Nicotine 14 mg 10/14/20 12:22 Nicotine 14 Mg Patch.Td24 TRANSDERMA DAILY PRN nicotine cessation Nicotine Polacrilex 4 mg 10/11/20 22:53 Nicotine Polacrilex 2 Mg Gum BUCCAL Q2H PRN Nicotine Cravings Olanzapine 10 mg 10/12/20 15:58 Olanzapine 10 Mg Vial IM DAILY PRN GIVE IF REFUSES PO Olanzapine 40 mg 10/16/20 21:00 10/28/20 20:07 Olanzapine Odt 10 Mg Tab.Rapdis TRANSLINGU 40 mg BEDTIME MARIA Administration Pharmacy Consult 1 each 10/11/20 10:46 Consult Rx Perform Med Rec MISCELLANE ONCE PRN Consult order Pharmacy Consult 1 each 10/13/20 14:28 Consult Rx Perform Med Rec MISCELLANE ONCE PRN Consult order Trazodone HCl 50 mg 10/11/20 22:53 Trazodone Hcl 50 Mg Tablet PO BEDTIME PRN Insomnia Allergies Allergies Allergy/AdvReac Type Severity Reaction Status Date / Time ofloxacin [From Floxin] Allergy Unknown Unknown Verified 10/11/20 10:46 prednisone AdvReac Unknown Unknown Verified 10/11/20 10:46 Assessment & Plan Assessment & Plan (1) Chronic schizophrenia: Status: Acute Code(s): F20.9 - Schizophrenia, unspecified (2) Medical non-compliance: Status: Acute Code(s): Z91.19 - Patient's noncompliance with other medical treatment and regimen Assessment and Plan: care. IMPRESSION: patient is a 45-year-old male with chronic psychotic disorder, assaultive behavior, on a [employer], and currently living in a [facility] who presents for worsening psychotic symptoms and the face of refusing medications. Patient is malodorous, currently with blunted affect and moderately disorganized. patient cannot explain why he stopped taking his medications but says that he will take them now and did in fact take last night it's bedtime dose. He denies any SI, HI or AVH however he presents as internally preoccupied with thought blocking. He is currently on a [employer]. Will admit for safety and stabilization. Patient does have a probate Champion Section 7 and treatment order has been filed court hearing put off for 1 week since patient has become cooperative with taking medication although he remains mute Problem: Schizophrenia: -pt taking antipsychotic Limited intake some improved nutrition took and half of supper which is some improvement. Check labs continue olanzapine changfe to 20 bid monbitor for cheeking ck olanzapine level Greater than 50% of the session was spent on counseling and/or coordination of care Reason for contiued inpatient stay Substantial Risk for: inability to function, rapid decompensation and med/psych decompensation
--- NOTE | 2020-10-29 05:35 | HO.PSYCHPN ---
Subjective Subjective Date of Service: 10/31/20 Reason For Visit: Schizophrenia Interim History: Pt mostly non verbal did very briefly brighten up when this science writer asked him if he likes chocolate ice cream. Pt also reports he likes to paint-oleos. He did not respond to other questions regarding his mood, paranoia. He nodded head no when asked about SI. His fists were clenched, increasingly more distress as this science writer asked questions. Pt standing outside his room, no interaction with peers or staff. He did take a shower. Review of Systems Review of Systems ROS unable to be obtained due to limited historian, vague, not fully answering questions Reports behavioral changes Psychiatric: Reports behavioral changes, Reports difficulty concentrating, Reports auditory hallucinations, Reports irritability, Reports anhedonia, Reports paranoia, Reports visual hallucinations and Reports hallucinations Mental Status Exam Mental Status Exam Narrative: Patient appears to be paranoid and fearful cannot explain behavior seems suspicious withdrawn guarded limited intake poor hygiene Appearance: casually groomed, fair hygiene in NAD Behavior:guarded, suspicious psychomotor:some restlessness Speech:minimally verbal, single words, mostly mute Thought process:unable to assess Thought content:unable to assess Mood:unable to assess Affect: constricted, fearful SI:denies HI:denies VH/AH:unable to assess but appears internally preoccupied Delusions:guarded, fearful but non verbal Memory/cog: alert, impaired Memory Description: Remote Impaired and Episodic Impaired Diagnostics Vital Signs (24Hr): Vital Signs - 24 hr 10/30/20 16:52 Respiratory Rate 16 Body Mass Index 29.7 Labs Results: 10/21/20 16:14 10/28/20 08:02 Medications Medications Current Medications Generic Name Dose Route Start Last Admin Trade Name Famq PRN Reason Stop Dose Admin Acetaminophen 650 mg 10/11/20 22:53 Acetaminophen 325 Mg Tablet PO Q6H PRN Headache/Pain Mild Scale (1-3) Al Hydroxide/Mg Hydroxide 30 ml 10/11/20 22:53 Magnesium Hydrox/Alum Hydrox 30 Ml Oral.Susp PO Q6H PRN Heartburn/Nausea Benztropine Mesylate 0.5 mg 10/13/20 14:29 Benztropine Mesylate 0.5 Mg Tablet PO DAILY PRN EPS Diphenhydramine HCl 50 mg 10/12/20 16:32 Diphenhydramine Hcl 25 Mg Tablet PO Q4H PRN agitation Haloperidol 5 mg 10/12/20 16:32 Haloperidol 5 Mg Tablet PO Q4H PRN agitation Hydroxyzine HCl 25 mg 10/11/20 22:53 Hydroxyzine Hcl 25 Mg Tablet PO BEDTIME PRN Anxiety Magnesium Hydroxide 30 ml 10/11/20 22:53 Milk Of Magnesia 30 Ml Oral.Susp PO DAILY PRN Constipation Melatonin 6 mg 10/11/20 21:00 10/30/20 19:50 Melatonin 3 Mg Tablet PO Not Given BEDTIME MARIA Nicotine 14 mg 10/14/20 12:22 Nicotine 14 Mg Patch.Td24 TRANSDERMA DAILY PRN nicotine cessation Nicotine Polacrilex 4 mg 10/11/20 22:53 Nicotine Polacrilex 2 Mg Gum BUCCAL Q2H PRN Nicotine Cravings Olanzapine 10 mg 10/12/20 15:58 Olanzapine 10 Mg Vial IM DAILY PRN GIVE IF REFUSES PO Olanzapine 20 mg 10/29/20 09:00 10/30/20 19:48 Olanzapine Odt 10 Mg Tab.Rapdis TRANSLINGU 20 mg BID MARIA Administration Pharmacy Consult 1 each 10/11/20 10:46 Consult Rx Perform Med Rec MISCELLANE ONCE PRN Consult order Pharmacy Consult 1 each 10/13/20 14:28 Consult Rx Perform Med Rec MISCELLANE ONCE PRN Consult order Trazodone HCl 50 mg 10/11/20 22:53 Trazodone Hcl 50 Mg Tablet PO BEDTIME PRN Insomnia Allergies Allergies Allergy/AdvReac Type Severity Reaction Status Date / Time ofloxacin [From Floxin] Allergy Unknown Unknown Verified 10/11/20 10:46 prednisone AdvReac Unknown Unknown Verified 10/11/20 10:46 Assessment & Plan Assessment & Plan (1) Chronic schizophrenia: Status: Acute Code(s): F20.9 - Schizophrenia, unspecified (2) Medical non-compliance: Status: Acute Code(s): Z91.19 - Patient's noncompliance with other medical treatment and regimen Assessment and Plan: care. IMPRESSION: patient is a 45-year-old male with chronic psychotic disorder, assaultive behavior, on a community Champion, and currently living in a [facility] to subsidize apartment who presents for worsening psychotic symptoms and the face of refusing medications. Patient is malodorous, currently with blunted affect and moderately disorganized. patient cannot explain why he stopped taking his medications but says that he will take them now and did in fact take last night it's bedtime dose. He denies any SI, HI or AVH however he presents as internally preoccupied with thought blocking. He is currently on a community Champion. Will admit for safety and stabilization. Patient does have a probate Champion Section 7 and treatment order has been filed court hearing put off for 1 week since patient has become cooperative with taking medication although he remains mute Problem: Schizophrenia: -pt taking antipsychotic Limited intake some improved nutrition took and half of supper which is some improvement. Check labs continue olanzapine Greater than 50% of the session was spent on counseling and/or coordination of care Reason for contiued inpatient stay Substantial Risk for: inability to function
[2020-10-29] MEDS: OLANZapine ODT 10 MG TAB.RAPDIS 20 MG TRANSLINGU ×2 (09:01→20:07)
--- NOTE | 2020-10-29 10:30 | PC.NURSE ---
t/c from pts mom today. initially inquiring about ray and how he was doing. update given and then pts mom started talking about how patients are treated like pack rats. she stated that is what they used to call psych pts back then. she stated she is not getting much cooperation from administration here. went on a hyperverbal tangent in which i was not able to follow her train of thought. she was talking about thirty day hold and what are we doing about that. she also was wondering which axis he fell under and where he satnds with that. i politely told her i had to get off the phone after aout 5-10 minutes as she seemed to become more unraveled in speech. she did thank me for talking to her and said to have a nice day.
[2020-10-29 18:00] VITALS: RESP 16
--- NOTE | 2020-10-30 05:40 | HO.PSYCHPN ---
Subjective Subjective Date of Service: 10/31/20 Reason For Visit: Schizophrenia Interim History: Pt mostly non verbal did very briefly brighten up when this freelance copywriter asked him if he likes chocolate ice cream. Pt also reports he likes to paint-oleos. He did not respond to other questions regarding his mood, paranoia. He nodded head no when asked about SI. His fists were clenched, increasingly more distress as this freelance copywriter asked questions. Pt standing outside his room, no interaction with peers or staff. He did take a shower. Review of Systems Review of Systems ROS unable to be obtained due to limited historian, vague, not fully answering questions Reports behavioral changes Psychiatric: Reports behavioral changes, Reports difficulty concentrating, Reports auditory hallucinations, Reports irritability, Reports anhedonia, Reports paranoia, Reports visual hallucinations and Reports hallucinations Mental Status Exam Mental Status Exam Narrative: Patient appears to be paranoid and fearful cannot explain behavior seems suspicious withdrawn guarded limited intake poor hygiene Appearance: casually groomed, fair hygiene in NAD Behavior:guarded, suspicious psychomotor:some restlessness Speech:minimally verbal, single words, mostly mute Thought process:unable to assess Thought content:unable to assess Mood:unable to assess Affect: constricted, fearful SI:denies HI:denies VH/AH:unable to assess but appears internally preoccupied Delusions:guarded, fearful but non verbal Memory/cog: alert, impaired Patient Appearance: Unkempt (at one point shoes appear to be on the wrong feet) Patient Orientation: Person and Place Level of Consciousness: Awake and Alert Patient Behavior: Guarded, Suspicious, Anxious, Avoidant, Distractible, Isolative and Poor Eye Contact Mood Description: Anxious, Blunted and Apprehensive Affect Description: Blunted Patient Cognition Impaired: Yes Ability to Follow Directions: Poor Speech Pattern: Impoverished Memory Description: Remote Impaired and Episodic Impaired Diagnostics Vital Signs (24Hr): Vital Signs - 24 hr 10/30/20 16:52 Respiratory Rate 16 Body Mass Index 29.7 Labs Results: 10/21/20 16:14 10/28/20 08:02 Medications Medications Current Medications Generic Name Dose Route Start Last Admin Trade Name Freq PRN Reason Stop Dose Admin Acetaminophen 650 mg 10/11/20 22:53 Acetaminophen 325 Mg Tablet PO Q6H PRN Headache/Pain Mild Scale (1-3) Al Hydroxide/Mg Hydroxide 30 ml 10/11/20 22:53 Magnesium Hydrox/Alum Hydrox 30 Ml Oral.Susp PO Q6H PRN Heartburn/Nausea Benztropine Mesylate 0.5 mg 10/13/20 14:29 Benztropine Mesylate 0.5 Mg Tablet PO DAILY PRN EPS Diphenhydramine HCl 50 mg 10/12/20 16:32 Diphenhydramine Hcl 25 Mg Tablet PO Q4H PRN agitation Haloperidol 5 mg 10/12/20 16:32 Haloperidol 5 Mg Tablet PO Q4H PRN agitation Hydroxyzine HCl 25 mg 10/11/20 22:53 Hydroxyzine Hcl 25 Mg Tablet PO BEDTIME PRN Anxiety Magnesium Hydroxide 30 ml 10/11/20 22:53 Milk Of Magnesia 30 Ml Oral.Susp PO DAILY PRN Constipation Melatonin 6 mg 10/11/20 21:00 10/30/20 19:50 Melatonin 3 Mg Tablet PO Not Given BEDTIME MARIA Nicotine 14 mg 10/14/20 12:22 Nicotine 14 Mg Patch.Td24 TRANSDERMA DAILY PRN nicotine cessation Nicotine Polacrilex 4 mg 10/11/20 22:53 Nicotine Polacrilex 2 Mg Gum BUCCAL Q2H PRN Nicotine Cravings Olanzapine 10 mg 10/12/20 15:58 Olanzapine 10 Mg Vial IM DAILY PRN GIVE IF REFUSES PO Olanzapine 20 mg 10/29/20 09:00 10/30/20 19:48 Olanzapine Odt 10 Mg Tab.Rapdis TRANSLINGU 20 mg BID [facility] Administration Pharmacy Consult 1 each 10/11/20 10:46 Consult Rx Perform Med Rec MISCELLANE ONCE PRN Consult order Pharmacy Consult 1 each 10/13/20 14:28 Consult Rx Perform Med Rec MISCELLANE ONCE PRN Consult order Trazodone HCl 50 mg 10/11/20 22:53 Trazodone Hcl 50 Mg Tablet PO BEDTIME PRN Insomnia Allergies Allergies Allergy/AdvReac Type Severity Reaction Status Date / Time ofloxacin [From Floxin] Allergy Unknown Unknown Verified 10/11/20 10:46 prednisone AdvReac Unknown Unknown Verified 10/11/20 10:46 Assessment & Plan Assessment & Plan (1) Chronic schizophrenia: Status: Acute Code(s): F20.9 - Schizophrenia, unspecified (2) Medical non-compliance: Status: Acute Code(s): Z91.19 - Patient's noncompliance with other medical treatment and regimen Assessment and Plan: care. IMPRESSION: patient is a 45-year-old male with chronic psychotic disorder, assaultive behavior, on a community Champion, and currently living in a [facility] to subsidize apartment who presents for worsening psychotic symptoms and the face of refusing medications. Patient is malodorous, currently with blunted affect and moderately disorganized. patient cannot explain why he stopped taking his medications but says that he will take them now and did in fact take last night it's bedtime dose. He denies any SI, HI or AVH however he presents as internally preoccupied with thought blocking. He is currently on a [employer] Champion. Will admit for safety and stabilization. Patient does have a probate Champion Section 7 and treatment order has been filed court hearing put off for 1 week since patient has become cooperative with taking medication although he remains mute Problem: Schizophrenia: -pt taking antipsychotic Limited intake some improved nutrition took and half of supper which is some improvement. Check labs continue olanzapine Greater than 50% of the session was spent on counseling and/or coordination of care Reason for contiued inpatient stay Substantial Risk for: inability to function
[2020-10-30] MEDS: OLANZapine ODT 10 MG TAB.RAPDIS 20 MG TRANSLINGU ×2 (08:19→19:48)
[2020-10-30 16:52] VITALS: RESP 16
[2020-10-31] MEDS: OLANZapine ODT 10 MG TAB.RAPDIS 20 MG TRANSLINGU ×2 (07:56→19:55)
--- NOTE | 2020-10-31 09:42 | HO.PSYCHPN ---
Subjective Subjective Date of Service: 10/31/20 Reason For Visit: Schizophrenia Interim History: Patient in his room alone, standing by his bed. Patient nods yes that he remembers this telegraphic typewriter operator who has been away for a week. [employer] tries to engage patient on various topics including his history of artistic endeavors, however patient remains selectively mute. [employer] explains that patient has a court-ordered community Champion and that adding a medication or switching out his Zyprexa with one of the additional medications is an option to see if a different medication can be effective. [employer] explains some of the additional requirements of Rispderal, Clozaril and Haldol and asks patients opinion to which he says no that he does not want weekly blood draws necessary for Clozaril; he also says I have an an allergy to Haldol...I don't know what it is but i have one.... though it is not listed as one. [employer] says that in that case will start a trial of Risperdal; telegraphic typewriter operator explains it has similar side effect profile to Zyprexa which patient has been taking for years. [employer] asks if patient would like to talk about anything else or if he has any questions to which patient shakes his head indicating no. Interview concluded. over past week, pt has remained selectively mute, though has at times talked with staff about various things Pt was seen eating and drinking over weekend and reportedly showered as well. Remains compliant with medication Pt's mother visited hospital today, but she did not make it to unit as she was agitated and escorted off the premises by Security Mental Status Exam Mental Status Exam Narrative: Patient Orientation: Awake, alert to Person and Place and some part of situation, though no inisight Appearance: casually dressed; unkempt, poor hygiene Behavior:guarded, suspicious, disorganized (standing in one place with blank stare, selectively mute; cannot explain behavior; at one point shoes appeared to be on the wrong feet) no psychomotor restlessness Speech:selectively mute; when talks with it's minimally with mostly single words Thought process:unable to assess Thought content:unable to assess Mood:unable to assess Affect: constricted to vacant SI:denies HI:denies VH/AH:unable to assess but appears internally preoccupied Delusions: paranoia around food Memory/cog: alert, impaired Insight/judgment: impaired Diagnostics Vital Signs (24Hr): Vital Signs - 24 hr 10/30/20 16:52 Respiratory Rate 16 Body Mass Index 29.7 Labs Results: 10/21/20 16:14 10/28/20 08:02 Medications Medications Current Medications Generic Name Dose Route Start Last Admin Trade Name Freq PRN Reason Stop Dose Admin Acetaminophen 650 mg 10/11/20 22:53 Acetaminophen 325 Mg Tablet PO Q6H PRN Headache/Pain Mild Scale (1-3) Al Hydroxide/Mg Hydroxide 30 ml 10/11/20 22:53 Magnesium Hydrox/Alum Hydrox 30 Ml Oral.Susp PO Q6H PRN Heartburn/Nausea Benztropine Mesylate 0.5 mg 10/13/20 14:29 Benztropine Mesylate 0.5 Mg Tablet PO DAILY PRN EPS Diphenhydramine HCl 50 mg 10/12/20 16:32 Diphenhydramine Hcl 25 Mg Tablet PO Q4H PRN agitation Haloperidol 5 mg 10/12/20 16:32 Haloperidol 5 Mg Tablet PO Q4H PRN agitation Hydroxyzine HCl 25 mg 10/11/20 22:53 Hydroxyzine Hcl 25 Mg Tablet PO BEDTIME PRN Anxiety Magnesium Hydroxide 30 ml 10/11/20 22:53 Milk Of Magnesia 30 Ml Oral.Susp PO DAILY PRN Constipation Melatonin 6 mg 10/11/20 21:00 10/30/20 19:50 Melatonin 3 Mg Tablet PO Not Given BEDTIME MARIA Nicotine 14 mg 10/14/20 12:22 Nicotine 14 Mg Patch.Td24 TRANSDERMA DAILY PRN nicotine cessation Nicotine Polacrilex 4 mg 10/11/20 22:53 Nicotine Polacrilex 2 Mg Gum BUCCAL Q2H PRN Nicotine Cravings Olanzapine 10 mg 10/12/20 15:58 Olanzapine 10 Mg Vial IM DAILY PRN GIVE IF REFUSES PO Olanzapine 20 mg 10/29/20 09:00 10/31/20 07:56 Olanzapine Odt 10 Mg Tab.Rapdis TRANSLINGU 20 mg BID [facility] Administration Pharmacy Consult 1 each 10/11/20 10:46 Consult Rx Perform Med Rec MISCELLANE ONCE PRN Consult order Pharmacy Consult 1 each 10/13/20 14:28 Consult Rx Perform Med Rec MISCELLANE ONCE PRN Consult order Trazodone HCl 50 mg 10/11/20 22:53 Trazodone Hcl 50 Mg Tablet PO BEDTIME PRN Insomnia Allergies Allergies Allergy/AdvReac Type Severity Reaction Status Date / Time ofloxacin [From Floxin] Allergy Unknown Unknown Verified 10/11/20 10:46 prednisone AdvReac Unknown Unknown Verified 10/11/20 10:46 Assessment & Plan Assessment & Plan (1) Chronic schizophrenia: Status: Acute Code(s): F20.9 - Schizophrenia, unspecified (2) Medical non-compliance: Status: Acute Code(s): Z91.19 - Patient's noncompliance with other medical treatment and regimen Assessment and Plan: care. IMPRESSION: patient is a 45-year-old male with chronic psychotic disorder, assaultive behavior, on a Qapa, and currently living in a [facility] to subsidize apartment who presents for worsening psychotic symptoms and the face of refusing medications. Patient is malodorous, currently with blunted affect and moderately disorganized. patient cannot explain why he stopped taking his medications but says that he will take them now and did in fact take last night it's bedtime dose. He denies any SI, HI or AVH however he presents as internally preoccupied with thought blocking. He is currently on a Qapa. Will admit for safety and stabilization. Pt on a [employer] which allows for following meds: -Zyprexa -Risperdal/Consta -Clozaril -Haldol Patient reports he has an allergy to Haldol, though none is listed; he does not like the idea of getting weekly blood draws so will hold off Clozaril for now Hospital course: -filed court for court hearing for extended time as patient remains disorganized; will continue to put off court and try additional medications listed in Q[place] to see if they can be effective -eating and drinking more so some improvement with nutrition but his negative, disorganized and paranoid symptoms have remained; he continues to be mostly selectively mute (has intermittently talked with staff about various things -Pt's mother visited hospital several times however has had to be escorted off by security several times (has been verbally assaultive to other pt's on unit, visitors; has been delusional reporting pt was involved in a breeding program on the unit; another time was agitated somewhere off unit in hospital, removed by security. Problem: Schizophrenia Plan: -pt taking antipsychotic Zydis 20mg BID (switched to BID dosing) and pt remains complaint -Will start trial of Risperdal 1mg Liquid BID to see if this can be effective (will titrate) -[employer] left message for Charley Sears at [facility] so [phone] to discuss case -Labs obtained: WNL -haldol is on patients bernadine Champion; since patient has no known allergy to Haldol and it is to be given only with Benadryl, will leave it on as a p.r.n. for severe agitation -[employer] spoke with Charley Sears (director?) at [facility] so [phone] to discuss case Charley reports she has known patient for about 15 years. He has been on Zyprexa for at least 15 years if not more. A while ago, patient's brother was also in the program and did many things to help patient, but in doing so, patient would typically only engage with his brother and was otherwise quiet, not talking much with staff. However his brother moved out 6 years ago and for the past 6 years patient has been doing overall well, engaged with staff, talking amicably with staff, able to move into his own apartment, spending time with peers, showering and attending to ADLs. Charley describes him as overall well-groomed, clean-shaven, with neat hair and ?pleasant.? 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 Patient was also able to take his medications on his own which were delivered in weekly packages. Staff would see him about 3 times a week to go to the bank, get groceries or help with medication management. A few months ago, Charley reports that patient started looking ?off. ?Staff reported he was not talking much at all, becoming isolative, not doing his art, and not paying attention to ADLs. The landlord also reported that there are complaints of stopping and pounding at night. During this time patient's mother had started visiting him much more often and she has a history of encouraging noncompliance with medications. The patient did eventually admit to staff he had stopped taking his medications at the beginning of October, though staff thinks it was for much longer. When Charley went to see him, he was standing as if catatonic, refusing to talk with anyone and clearly internally preoccupied. He also has a history of auditory hallucinations to hurt others, though he has not recently endorsed this. Currently, Charley agrees with holding off going to court and trying other medications on community Champion. -Charley reports no knowledge of any allergy to Haldol and reiterates he has been on Zyprexa only for as long as she has known him Greater than 50% of the session was spent on counseling and/or coordination of care Reason for contiued inpatient stay Substantial Risk for: inability to function
[2020-10-31] MEDS: risperiDONE Oral Sol 1 MG/ML SOLUTION PO ×2 (12:43→19:56)
[2020-10-31 18:33] VITALS: BP 113/73; PULSE 76; RESP 16; TEMP 36.2; O2SAT 97
[2020-11-01] MEDS: risperiDONE Oral Sol 1 MG/ML SOLUTION PO (09:03)
[2020-11-01] MEDS: OLANZapine ODT 10 MG TAB.RAPDIS 20 MG TRANSLINGU ×2 (09:04→20:33)
--- NOTE | 2020-11-01 13:44 | HO.PSYCHPN ---
Subjective Subjective Date of Service: 11/01/20 Reason For Visit: Schizophrenia Interim History: pt seen on 11/01 pt did not speak with contract technical writer, but was willing to nod yes or no to some basic questions which was new. He nods' yes to that he's taken Risperdal before, and no side-effects; he denies AVH and does not have any questions or complaints. Yarn Spooler discussed plan to continue to titrate Risperdal. Patient had no reply Mental Status Exam Mental Status Exam Narrative: Patient Orientation: Awake, alert to Person and Place and some part of situation, though no inisight Appearance: casually dressed; unkempt, poor hygiene Behavior: willing to nod yes/no to some questions, but otherwise, remains guarded, suspicious, disorganized (standing in one place with blank stare, selectively mute; cannot explain behavior; at one point shoes appeared to be on the wrong feet) no psychomotor restlessness Speech:selectively mute; when talks with it's minimally with mostly single words Thought process:unable to assess Thought content:unable to assess Mood:unable to assess Affect: constricted to vacant SI:denies HI:denies VH/AH:denies, but internally preoccupied Delusions: paranoia around food Memory/cog: alert, impaired Insight/judgment: impaired Diagnostics Vital Signs (24Hr): Vital Signs - 24 hr 10/31/20 18:33 Temperature 97.1 F Pulse Rate 76 Respiratory Rate 16 Blood Pressure 113/73 Pulse Oximetry 97 Body Mass Index 29.7 Labs Results: 10/21/20 16:14 10/28/20 08:02 Medications Medications Current Medications Generic Name Dose Route Start Last Admin Trade Name Freq PRN Reason Stop Dose Admin Acetaminophen 650 mg 10/11/20 22:53 Acetaminophen 325 Mg Tablet PO Q6H PRN Headache/Pain Mild Scale (1-3) Al Hydroxide/Mg Hydroxide 30 ml 10/11/20 22:53 Magnesium Hydrox/Alum Hydrox 30 Ml Oral.Susp PO Q6H PRN Heartburn/Nausea Benztropine Mesylate 0.5 mg 10/13/20 14:29 Benztropine Mesylate 0.5 Mg Tablet PO DAILY PRN EPS Diphenhydramine HCl 50 mg 10/12/20 16:32 Diphenhydramine Hcl 25 Mg Tablet PO Q4H PRN agitation Haloperidol 5 mg 10/12/20 16:32 Haloperidol 5 Mg Tablet PO Q4H PRN agitation Hydroxyzine HCl 25 mg 10/11/20 22:53 Hydroxyzine Hcl 25 Mg Tablet PO BEDTIME PRN Anxiety Magnesium Hydroxide 30 ml 10/11/20 22:53 Milk Of Magnesia 30 Ml Oral.Susp PO DAILY PRN Constipation Melatonin 6 mg 10/11/20 21:00 10/31/20 20:12 Melatonin 3 Mg Tablet PO Not Given BEDTIME MARIA Nicotine 14 mg 10/14/20 12:22 Nicotine 14 Mg Patch.Td24 TRANSDERMA DAILY PRN nicotine cessation Nicotine Polacrilex 4 mg 10/11/20 22:53 Nicotine Polacrilex 2 Mg Gum BUCCAL Q2H PRN Nicotine Cravings Olanzapine 10 mg 10/12/20 15:58 Olanzapine 10 Mg Vial IM DAILY PRN GIVE IF REFUSES PO Olanzapine 20 mg 10/29/20 09:00 11/01/20 09:04 Olanzapine Odt 10 Mg Tab.Rapdis TRANSLINGU 20 mg BID MARIA Administration Pharmacy Consult 1 each 10/11/20 10:46 Consult Rx Perform Med Rec MISCELLANE ONCE PRN Consult order Pharmacy Consult 1 each 10/13/20 14:28 Consult Rx Perform Med Rec MISCELLANE ONCE PRN Consult order Risperidone 2 mg 11/01/20 21:00 Risperidone Oral Viola 1 Mg/Ml Solution PO BID MARIA Trazodone HCl 50 mg 10/11/20 22:53 Trazodone Hcl 50 Mg Tablet PO BEDTIME PRN Insomnia Allergies Allergies Allergy/AdvReac Type Severity Reaction Status Date / Time ofloxacin [From Floxin] Allergy Unknown Unknown Verified 10/11/20 10:46 prednisone AdvReac Unknown Unknown Verified 10/11/20 10:46 Assessment & Plan Assessment & Plan (1) Chronic schizophrenia: Status: Acute Code(s): F20.9 - Schizophrenia, unspecified (2) Medical non-compliance: Status: Acute Code(s): Z91.19 - Patient's noncompliance with other medical treatment and regimen Assessment and Plan: IMPRESSION: patient is a 45-year-old male with chronic psychotic disorder, assaultive behavior, on a community Champion, and currently living in a [facility] who presents for worsening psychotic symptoms and the face of refusing medications. Patient is malodorous, currently with blunted affect and moderately disorganized. patient cannot explain why he stopped taking his medications but says that he will take them now and did in fact take last night it's bedtime dose. He denies any SI, HI or AVH however he presents as internally preoccupied with thought blocking. He is currently on a [employer] Champion. Will admit for safety and stabilization. Pt on a [employer] Champion which allows for following meds: -Zyprexa -Risperdal/Consta -Clozaril -Haldol Patient reports he has an allergy to Haldol, though none is listed; he does not like the idea of getting weekly blood draws so will hold off Clozaril for now Hospital course: -filed court for court hearing for extended time as patient remains disorganized; will continue to put off court and try additional medications listed in [employer] Champion to see if they can be effective -eating and drinking more so some improvement with nutrition but his negative, disorganized and paranoid symptoms have remained; he continues to be mostly selectively mute (has intermittently talked with staff about various things -Pt's mother visited hospital several times however has had to be escorted off by security several times (has been verbally assaultive to other pt's on unit, visitors; has been delusional reporting pt was involved in a breeding program on the unit; another time was agitated somewhere off unit in hospital, removed by security. Problem: Schizophrenia Plan: -pt taking antipsychotic Zydis 20mg BID (switched to BID dosing) and pt remains complaint -Continue risperdal liquid 2mg BID (Started Risperdal Liquid on 10/31) to see if this can be effective -Labs obtained: WNL -haldol is on patients [employer]; since patient has no known allergy to Haldol and it is to be given only with Benadryl, will leave it on as a p.r.n. for severe agitation -Yarn Spooler spoke with Charley Sears (director?) at [facility] so [phone] to discuss case Charley reports she has known patient for about 15 years. He has been on Zyprexa for at least 15 years if not more. A while ago, patient's brother was also in the program and did many things to help patient, but in doing so, patient would typically only engage with his brother and was otherwise quiet, not talking much with staff. However his brother moved out 6 years ago and for the past 6 years patient has been doing overall well, engaged with staff, talking amicably with staff, able to move into his own apartment, spending time with peers, showering and attending to ADLs. Charley describes him as overall well-groomed, clean-shaven, with neat hair and ?pleasant.? 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 Patient was also able to take his medications on his own which were delivered in weekly packages. Staff would see him about 3 times a week to go to the bank, get groceries or help with medication management. A few months ago, Charley reports that patient started looking ?off. ?Staff reported he was not talking much at all, becoming isolative, not doing his art, and not paying attention to ADLs. The landlord also reported that there are complaints of stopping and pounding at night. During this time patient's mother had started visiting him much more often and she has a history of encouraging noncompliance with medications. The patient did eventually admit to staff he had stopped taking his medications at the beginning of October, though staff thinks it was for much longer. When Charley went to see him, he was standing as if catatonic, refusing to talk with anyone and clearly internally preoccupied. He also has a history of auditory hallucinations to hurt others, though he has not recently endorsed this. Currently, Charley agrees with holding off going to court and trying other medications on community Champion. -Charley reports no knowledge of any allergy to Haldol and reiterates he has been on Zyprexa only for as long as she has known him Greater than 50% of the session was spent on counseling and/or coordination of care Reason for contiued inpatient stay Substantial Risk for: inability to function and rapid decompensation
[2020-11-01 18:00] VITALS: BP 108/70; PULSE 86; RESP 16; TEMP 36.1; O2SAT 98
[2020-11-01] MEDS: risperiDONE Oral Sol 1 MG/ML SOLUTION 2 MG PO (20:33)
[2020-11-02] MEDS: OLANZapine ODT 10 MG TAB.RAPDIS 20 MG TRANSLINGU ×2 (08:30→20:51)
[2020-11-02] MEDS: risperiDONE Oral Sol 1 MG/ML SOLUTION 2 MG PO ×2 (08:31→20:51)
--- NOTE | 2020-11-02 16:15 | HO.PSYCHPN ---
Subjective Subjective Date of Service: 11/02/20 Reason For Visit: Schizophrenia Interim History: Patient more talkative today. He said that he has taken Risperdal in the past and would like to switch from the liquid to the pill form; sql report writer agreed with this and agreed to make that adjustment in a few days. Network Designer asked about the long-acting injectable, but patient said he did not want that and prefers pills. Patient also asked if it would be possible for him to be discharged by November 08 since he has to pay rent. Network Designer discussed with him that his apartment is waiting for him and that rent is being taking care of; patient understood but asked if sql report writer would call [facility] team to verify, to which sql report writer agreed. Network Designer asked more about his history of art work. Patient said that he has done some painting but not a lot but then said that he plays guitar. Of note patient shower today T Mental Status Exam Mental Status Exam Narrative: Patient Orientation: Awake, alert to Person and Place and some part of situation, Appearance: casually dressed; improved hygiene Behavior: talking more; less guarded but remains so; still disorganized (standing in one place with blank stare, selectively mute) no psychomotor restlessness Speech:talking more; speech WNL when he does talk; still often selectively mute Thought process:goal oriented; concrete Thought content:on discharge otherwise, vacuous Mood: ok Affect: constricted to vacant SI:denies HI:denies VH/AH:denies, but internally preoccupied Delusions: paranoia around food but less so Memory/cog: alert, impaired Insight/judgment: impaired Diagnostics Vital Signs (24Hr): Vital Signs - 24 hr 11/01/20 18:00 Temperature 97.0 F Pulse Rate 86 Respiratory Rate 16 Blood Pressure 108/70 Pulse Oximetry 98 Body Mass Index 29.7 Labs Results: 10/21/20 16:14 10/28/20 08:02 Medications Medications Current Medications Generic Name Dose Route Start Last Admin Trade Name Freq PRN Reason Stop Dose Admin Acetaminophen 650 mg 10/11/20 22:53 Acetaminophen 325 Mg Tablet PO Q6H PRN Headache/Pain Mild Scale (1-3) Al Hydroxide/Mg Hydroxide 30 ml 10/11/20 22:53 Magnesium Hydrox/Alum Hydrox 30 Ml Oral.Susp PO Q6H PRN Heartburn/Nausea Benztropine Mesylate 0.5 mg 10/13/20 14:29 Benztropine Mesylate 0.5 Mg Tablet PO DAILY PRN EPS Diphenhydramine HCl 50 mg 10/12/20 16:32 Diphenhydramine Hcl 25 Mg Tablet PO Q4H PRN agitation Haloperidol 5 mg 10/12/20 16:32 Haloperidol 5 Mg Tablet PO Q4H PRN agitation Hydroxyzine HCl 25 mg 10/11/20 22:53 Hydroxyzine Hcl 25 Mg Tablet PO BEDTIME PRN Anxiety Magnesium Hydroxide 30 ml 10/11/20 22:53 Milk Of Magnesia 30 Ml Oral.Susp PO DAILY PRN Constipation Melatonin 6 mg 10/11/20 21:00 11/01/20 21:06 Melatonin 3 Mg Tablet PO Not Given BEDTIME MARIA Nicotine 14 mg 10/14/20 12:22 Nicotine 14 Mg Patch.Td24 TRANSDERMA DAILY PRN nicotine cessation Nicotine Polacrilex 4 mg 10/11/20 22:53 Nicotine Polacrilex 2 Mg Gum BUCCAL Q2H PRN Nicotine Cravings Olanzapine 10 mg 10/12/20 15:58 Olanzapine 10 Mg Vial IM DAILY PRN GIVE IF REFUSES PO Olanzapine 20 mg 10/29/20 09:00 11/02/20 08:30 Olanzapine Odt 10 Mg Tab.Rapdis TRANSLINGU 20 mg BID MARIA Administration Pharmacy Consult 1 each 10/11/20 10:46 Consult Rx Perform Med Rec MISCELLANE ONCE PRN Consult order Pharmacy Consult 1 each 10/13/20 14:28 Consult Rx Perform Med Rec MISCELLANE ONCE PRN Consult order Risperidone 2 mg 11/01/20 21:00 11/02/20 08:31 Risperidone Oral Viola 1 Mg/Ml Solution PO 2 mg BID MARIA Administration Trazodone HCl 50 mg 10/11/20 22:53 Trazodone Hcl 50 Mg Tablet PO BEDTIME PRN Insomnia Allergies Allergies Allergy/AdvReac Type Severity Reaction Status Date / Time ofloxacin [From Floxin] Allergy Unknown Unknown Verified 10/11/20 10:46 prednisone AdvReac Unknown Unknown Verified 10/11/20 10:46 Assessment & Plan Assessment & Plan (1) Chronic schizophrenia: Status: Acute Code(s): F20.9 - Schizophrenia, unspecified (2) Medical non-compliance: Status: Acute Code(s): Z91.19 - Patient's noncompliance with other medical treatment and regimen Assessment and Plan: IMPRESSION: patient is a 45-year-old male with chronic psychotic disorder, assaultive behavior, on a Portapure, and currently living in a [facility] apartment who presents for worsening psychotic symptoms and the face of refusing medications. Patient is malodorous, currently with blunted affect and moderately disorganized. patient cannot explain why he stopped taking his medications but says that he will take them now and did in fact take last night it's bedtime dose. He denies any SI, HI or AVH however he presents as internally preoccupied with thought blocking. He is currently on a Portapure. Will admit for safety and stabilization. Pt on a Apse which allows for following meds: -Zyprexa -Risperdal/Consta -Clozaril -Haldol Patient reports he has an allergy to Haldol, though none is listed; he does not like the idea of getting weekly blood draws so will hold off Clozaril for now Hospital course: -filed court for court hearing for extended time as patient remains disorganized; will continue to put off court and try additional medications listed in Portapure to see if they can be effective -eating and drinking more so some improvement with nutrition but his negative, disorganized and paranoid symptoms have remained; he continues to be mostly selectively mute (has intermittently talked with staff about various things -Pt's mother visited hospital several times however has had to be escorted off by security several times (has been verbally assaultive to other pt's on unit, visitors; has been delusional reporting pt was involved in a breeding program on the unit; another time was agitated somewhere off unit in hospital, removed by security. Problem: Schizophrenia Plan: -will start to transition medications to morning doses as much as possible, given that [facility] staff mostly comes in the morning hours -pt taking antipsychotic Zydis 20mg BID (switched to BID dosing) and pt remains complaint -Continue risperdal liquid 2mg BID (Started Risperdal Liquid on 10/31) to see if this can be effective Will switch to tablet form at patient's request, however will wait another couple days to ensure continued adherence -Labs obtained: WNL -haldol is on patients Portapure; since patient has no known allergy to Haldol and it is to be given only with Benadryl, will leave it on as a p.r.n. for severe agitation Greater than 50% of the session was spent on counseling and/or coordination of care -Network Designer spoke with Charley Sears (director?) at [facility] so [phone] to discuss case Charley reports she has known patient for about 15 years. He has been on Zyprexa for at least 15 years if not more. A while ago, patient's brother was also in the program and did many things to help patient, but in doing so, patient would typically only engage with his brother and was otherwise quiet, not talking much with staff. However his brother moved out 6 years ago and for the past 6 years patient has been doing overall well, engaged with staff, talking amicably with staff, able to move into his own apartment, spending time with peers, showering and attending to ADLs. Charley describes him as overall well-groomed, clean-shaven, with neat hair and ?pleasant.? 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 Patient was also able to take his medications on his own which were delivered in weekly packages. Staff would see him about 3 times a week to go to the bank, get groceries or help with medication management. A few months ago, Charley reports that patient started looking ?off. ?Staff reported he was not talking much at all, becoming isolative, not doing his art, and not paying attention to ADLs. The landlord also reported that there are complaints of stopping and pounding at night. During this time patient's mother had started visiting him much more often and she has a history of encouraging noncompliance with medications. The patient did eventually admit to staff he had stopped taking his medications at the beginning of October, though staff thinks it was for much longer. When Charley went to see him, he was standing as if catatonic, refusing to talk with anyone and clearly internally preoccupied. He also has a history of auditory hallucinations to hurt others, though he has not recently endorsed this. Currently, Charley agrees with holding off going to court and trying other medications on community Champion. -Charley reports no knowledge of any allergy to Haldol and reiterates he has been on Zyprexa only for as long as she has known him Reason for contiued inpatient stay Substantial Risk for: rapid decompensation
[2020-11-02 17:29] VITALS: BP 117/68; PULSE 95; RESP 18; TEMP 36.6; O2SAT 98
[2020-11-03 07:00] VITALS: BMI 30.2
[2020-11-03] MEDS: risperiDONE Oral Sol 1 MG/ML SOLUTION 2 MG PO ×2 (08:38→20:43)
[2020-11-03] MEDS: OLANZapine ODT 10 MG TAB.RAPDIS 20 MG TRANSLINGU ×2 (08:38→20:43)
--- NOTE | 2020-11-03 12:28 | HO.PSYCHPN ---
Subjective Subjective Date of Service: 11/03/20 Reason For Visit: Schizophrenia Interim History: Patient says he is okay today. He says that he is sleeping well; he denies having any dreams or nightmares. He reiterates that he would like to switch to pills and agrees that this will be done on Saturday. He denies any other complaints and has no other requests. Other attempts to engage mostly met with shrugs of the shoulder. Mental Status Exam Mental Status Exam Narrative: Patient Orientation: Awake, alert to Person and Place and some part of situation, Appearance: casually dressed; improved hygiene Behavior: talking more; less guarded but remains so; still disorganized (standing in one place with blank stare, selectively mute) no psychomotor restlessness Speech:talking more; speech WNL when he does talk; still often selectively mute Thought process:goal oriented; concrete Thought content:on discharge otherwise, vacuous Mood: okay Affect: constricted to vacant SI:denies HI:denies VH/AH:denies, but internally preoccupied Delusions: paranoia around food but less so Memory/cog: alert, impaired Insight/judgment: impaired Diagnostics Vital Signs (24Hr): Vital Signs - 24 hr 11/02/20 17:29 Temperature 97.9 F Pulse Rate 95 Respiratory Rate 18 Blood Pressure 117/68 Pulse Oximetry 98 Body Mass Index 29.7 Labs Results: 10/21/20 16:14 10/28/20 08:02 Medications Medications Current Medications Generic Name Dose Route Start Last Admin Trade Name Freq PRN Reason Stop Dose Admin Acetaminophen 650 mg 10/11/20 22:53 Acetaminophen 325 Mg Tablet PO Q6H PRN Headache/Pain Mild Scale (1-3) Al Hydroxide/Mg Hydroxide 30 ml 10/11/20 22:53 Magnesium Hydrox/Alum Hydrox 30 Ml Oral.Susp PO Q6H PRN Heartburn/Nausea Benztropine Mesylate 0.5 mg 10/13/20 14:29 Benztropine Mesylate 0.5 Mg Tablet PO DAILY PRN EPS Diphenhydramine HCl 50 mg 10/12/20 16:32 Diphenhydramine Hcl 25 Mg Tablet PO Q4H PRN agitation Haloperidol 5 mg 10/12/20 16:32 Haloperidol 5 Mg Tablet PO Q4H PRN agitation Hydroxyzine HCl 25 mg 10/11/20 22:53 Hydroxyzine Hcl 25 Mg Tablet PO BEDTIME PRN Anxiety Magnesium Hydroxide 30 ml 10/11/20 22:53 Milk Of Magnesia 30 Ml Oral.Susp PO DAILY PRN Constipation Melatonin 6 mg 10/11/20 21:00 11/02/20 20:48 Melatonin 3 Mg Tablet PO Not Given BEDTIME MARIA Nicotine 14 mg 10/14/20 12:22 Nicotine 14 Mg Patch.Td24 TRANSDERMA DAILY PRN nicotine cessation Nicotine Polacrilex 4 mg 10/11/20 22:53 Nicotine Polacrilex 2 Mg Gum BUCCAL Q2H PRN Nicotine Cravings Olanzapine 10 mg 10/12/20 15:58 Olanzapine 10 Mg Vial IM DAILY PRN GIVE IF REFUSES PO Olanzapine 20 mg 10/29/20 09:00 11/03/20 08:38 Olanzapine Odt 10 Mg Tab.Rapdis TRANSLINGU 20 mg BID MARIA Administration Pharmacy Consult 1 each 10/11/20 10:46 Consult Rx Perform Med Rec MISCELLANE ONCE PRN Consult order Pharmacy Consult 1 each 10/13/20 14:28 Consult Rx Perform Med Rec MISCELLANE ONCE PRN Consult order Risperidone 2 mg 11/01/20 21:00 11/03/20 08:38 Risperidone Oral Viola 1 Mg/Ml Solution PO 2 mg BID MARIA Administration Trazodone HCl 50 mg 10/11/20 22:53 Trazodone Hcl 50 Mg Tablet PO BEDTIME PRN Insomnia Allergies Allergies Allergy/AdvReac Type Severity Reaction Status Date / Time ofloxacin [From Floxin] Allergy Unknown Unknown Verified 10/11/20 10:46 prednisone AdvReac Unknown Unknown Verified 10/11/20 10:46 Assessment & Plan Assessment & Plan (1) Chronic schizophrenia: Status: Acute Code(s): F20.9 - Schizophrenia, unspecified (2) Medical non-compliance: Status: Acute Code(s): Z91.19 - Patient's noncompliance with other medical treatment and regimen Assessment and Plan: IMPRESSION: patient is a 45-year-old male with chronic psychotic disorder, assaultive behavior, on a community [employer], and currently living [facility] who presents for worsening psychotic symptoms and the face of refusing medications. Patient is malodorous, currently with blunted affect and moderately disorganized. patient cannot explain why he stopped taking his medications but says that he will take them now and did in fact take last night it's bedtime dose. He denies any SI, HI or AVH however he presents as internally preoccupied with thought blocking. He is currently on a [facility]. Will admit for safety and stabilization. Pt on a [employer] which allows for following meds: -Zyprexa -Risperdal/Consta -Clozaril -Haldol Patient reports he has an allergy to Haldol, though none is listed; he does not like the idea of getting weekly blood draws so will hold off Clozaril for now Hospital course: -filed court for court hearing for extended time as patient remains disorganized; will continue to put off court and try additional medications listed in [facility] to see if they can be effective -eating and drinking more so some improvement with nutrition but his negative, disorganized and paranoid symptoms have remained; he continues to be mostly selectively mute (has intermittently talked with staff about various things -Pt's mother visited hospital several times however has had to be escorted off by security several times (has been verbally assaultive to other pt's on unit, visitors; has been delusional reporting pt was involved in a breeding program on the unit; another time was agitated somewhere off unit in hospital, removed by security. -Risperdal started and titrated to good effect; patient is now talking more and becoming a little more organized Plan: -will start to transition medications to morning doses as much as possible, given that [facility] staff mostly comes in the morning hours -pt taking antipsychotic Zydis 20mg BID (switched to BID dosing) and pt remains complaint -Continue risperdal 4mg total daily dose but will start to transition it to mostly a morning dose; will switch from liquid to tablets soon (Started Risperdal Liquid on 10/31); patient improving now on Risperdal; does not want [place] -Labs obtained: WNL -haldol is on patients community [employer]; since patient has no known allergy to Haldol and it is to be given only with Benadryl, will leave it on as a p.r.n. for severe agitation Greater than 50% of the session was spent on counseling and/or coordination of care -Resident Services Supervisor spoke with Charley Sears (director?) at [facility] so [phone] to discuss case Charley reports she has known patient for about 15 years.? He has been on Zyprexa for at least 15 years if not more.? A while ago, patient's brother was also in the program and did many things to help patient, but in doing so, patient would typically only engage with his brother and was otherwise quiet, not talking much with staff.? However his brother moved out 6 years ago and for the past 6 years patient has been doing overall well, engaged with staff, talking amicably with staff, able to move into his own apartment, spending time with peers, showering and attending to ADLs. Charley describes him as overall well-groomed, clean-shaven, with neat hair and ?pleasant.?? 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 Patient was also able to take his medications on his own which were delivered in weekly packages.? Staff would see him about 3 times a week to go to the bank, get groceries or help with medication management.? A few months ago, Charley reports that patient started looking ?off.? ?Staff reported he was not talking much at all, becoming isolative, not doing his art, and not paying attention to ADLs.? The landlord also reported that there are complaints of stopping and pounding at night.? During this time patient's mother had started visiting him much more often and she has a history of encouraging noncompliance with medications.? The patient did eventually admit to staff he had stopped taking his medications at the beginning of October, though staff thinks it was for much longer.? When Charley went to see him, he was standing as if catatonic, refusing to talk with anyone and clearly internally preoccupied.? He also has a history of auditory hallucinations to hurt others, though he has not recently endorsed this.? Currently, Charley agrees with holding off going to court and trying other medications on community Champion. -Charley reports no knowledge of any allergy to Haldol and reiterates he has been on Zyprexa only for as long as she has known him Reason for contiued inpatient stay Substantial Risk for: rapid decompensation
[2020-11-03 18:00] VITALS: BP 130/68; PULSE 83; RESP 18; TEMP 36.1; O2SAT 98
[2020-11-04] MEDS: OLANZapine ODT 10 MG TAB.RAPDIS 30 MG TRANSLINGU (08:09)
[2020-11-04] MEDS: risperiDONE Oral Sol 1 MG/ML SOLUTION 4 MG PO (08:11)
[2020-11-04 16:13] VITALS: BP 110/74; PULSE 84; RESP 16; TEMP 36.3; O2SAT 98
--- NOTE | 2020-11-04 17:32 | HO.PSYCHPN ---
Subjective Subjective Date of Service: 11/04/20 Reason For Visit: Schizophrenia Interim History: Patient says he is ?okay ?and that he overall thinks he is getting back to his normal self. Passenger Rate Clerk why he 1st came here and patient answered ?I stopped taking my meds. ? Passenger Rate Clerk asked him how he thought he might have been different during the earlier part of his admission to which he shrugged his shoulders and said it was a new environment new people. Passenger Rate Clerk inquired what patient is typically like to which he says that he normally keep mostly to [him]self and is quiet. As flex o writer operator was getting ready to leave patient called flex o writer operator back in said that ?Wilber is coming to visit at 2pm which is a [facility] staff member he likes. Of note, patient himself asked to take a shower Medication Compliance: Yes Side effects from medications: No Attending Groups: No Mental Status Exam Mental Status Exam Narrative: ?Patient Orientation: Awake, alert to Person and Place and some part of situation, Appearance: casually dressed; adequate hygiene Behavior: talking more; less guarded; still mostly stands in one place with flat affect and saying little Speech: More spontaneous, more; speech WNL when he does talk; still can be selectively mute Thought process:goal oriented; concrete Thought content:on discharge otherwise, vacuous Mood: okay Affect: constricted, sometimes flat SI:denies HI:denies VH/AH:denies, but seems moderately internally preoccupied Delusions: Denies Memory/cog: alert, impaired Insight/judgment: impaired Diagnostics Vital Signs (24Hr): Vital Signs - 24 hr 11/03/20 18:00 11/04/20 16:13 Temperature 96.9 F 97.4 F Pulse Rate 83 84 Respiratory Rate 18 16 Blood Pressure 130/68 110/74 Pulse Oximetry 98 98 Body Mass Index 30.2 Labs Results: 10/21/20 16:14 10/28/20 08:02 Medications Medications Current Medications Generic Name Dose Route Start Last Admin Trade Name Freq PRN Reason Stop Dose Admin Acetaminophen 650 mg 10/11/20 22:53 Acetaminophen 325 Mg Tablet PO Q6H PRN Headache/Pain Mild Scale (1-3) Al Hydroxide/Mg Hydroxide 30 ml 10/11/20 22:53 Magnesium Hydrox/Alum Hydrox 30 Ml Oral.Susp PO Q6H PRN Heartburn/Nausea Benztropine Mesylate 0.5 mg 10/13/20 14:29 Benztropine Mesylate 0.5 Mg Tablet PO DAILY PRN EPS Diphenhydramine HCl 50 mg 10/12/20 16:32 Diphenhydramine Hcl 25 Mg Tablet PO Q4H PRN agitation Haloperidol 5 mg 10/12/20 16:32 Haloperidol 5 Mg Tablet PO Q4H PRN agitation Hydroxyzine HCl 25 mg 10/11/20 22:53 Hydroxyzine Hcl 25 Mg Tablet PO BEDTIME PRN Anxiety Magnesium Hydroxide 30 ml 10/11/20 22:53 Milk Of Magnesia 30 Ml Oral.Susp PO DAILY PRN Constipation Melatonin 6 mg 10/11/20 21:00 11/03/20 21:28 Melatonin 3 Mg Tablet PO Not Given BEDTIME MARIA Nicotine 14 mg 10/14/20 12:22 Nicotine 14 Mg Patch.Td24 TRANSDERMA DAILY PRN nicotine cessation Nicotine Polacrilex 4 mg 10/11/20 22:53 Nicotine Polacrilex 2 Mg Gum BUCCAL Q2H PRN Nicotine Cravings Olanzapine 10 mg 10/12/20 15:58 Olanzapine 10 Mg Vial IM DAILY PRN GIVE IF REFUSES PO Olanzapine 30 mg 11/04/20 09:00 11/04/20 08:09 Olanzapine Odt 10 Mg Tab.Rapdis TRANSLINGU 30 mg DAILY MARIA Administration Olanzapine 10 mg 11/04/20 21:00 Olanzapine Odt 10 Mg Tab.Rapdis TRANSLINGU BEDTIME MARIA Pharmacy Consult 1 each 10/11/20 10:46 Consult Rx Perform Med Rec MISCELLANE ONCE PRN Consult order Pharmacy Consult 1 each 10/13/20 14:28 Consult Rx Perform Med Rec MISCELLANE ONCE PRN Consult order Risperidone 4 mg 11/04/20 09:00 11/04/20 08:11 Risperidone Oral Viola 1 Mg/Ml Solution PO 11/04/20 23:59 4 mg DAILY MARIA Administration Risperidone 4 mg 11/05/20 09:00 Risperidone 2 Mg Tablet PO DAILY MARIA Trazodone HCl 50 mg 10/11/20 22:53 Trazodone Hcl 50 Mg Tablet PO BEDTIME PRN Insomnia Allergies Allergies Allergy/AdvReac Type Severity Reaction Status Date / Time ofloxacin [From Floxin] Allergy Unknown Unknown Verified 10/11/20 10:46 prednisone AdvReac Unknown Unknown Verified 07/06/21 10:46 Assessment & Plan Assessment & Plan (1) Chronic schizophrenia: Status: Acute Code(s): F20.9 - Schizophrenia, unspecified (2) Medical non-compliance: Status: Acute Code(s): Z91.19 - Patient's noncompliance with other medical treatment and regimen Assessment and Plan: IMPRESSION: patient is a 45-year-old male with chronic psychotic disorder, assaultive behavior, on a [employer], and currently living in a [facility] to subsidize apartment who presents for worsening psychotic symptoms and the face of refusing medications. Patient is malodorous, currently with blunted affect and moderately disorganized. patient cannot explain why he stopped taking his medications but says that he will take them now and did in fact take last night it's bedtime dose. He denies any SI, HI or AVH however he presents as internally preoccupied with thought blocking. He is currently on a [employer]. Will admit for safety and stabilization. Pt on a [employer] which allows for following meds: -Zyprexa -Risperdal/Consta -Clozaril -Haldol Patient reports he has an allergy to Haldol, though none is listed; he does not like the idea of getting weekly blood draws so will hold off Clozaril for now Hospital course: -filed court for court hearing for extended time as patient remains disorganized; will continue to put off court and try additional medications listed in [employer] to see if they can be effective -eating and drinking more so some improvement with nutrition but his negative, disorganized and paranoid symptoms have remained; he continues to be mostly selectively mute (has intermittently talked with staff about various things -Pt's mother visited hospital several times however has had to be escorted off by security several times (has been verbally assaultive to other pt's on unit, visitors; has been delusional reporting pt was involved in a breeding program on the unit; another time was agitated somewhere off unit in hospital, removed by security. -Risperdal started and titrated to good effect; patient is now talking more and becoming more organized Plan: - transition medications to morning doses as much as possible, given that [facility] staff mostly comes in the morning hours -Zydis 30mg in AM and 10mg at bedtime -Continue risperdal 4mg Daily; switching from liquid to tablets (Started Risperdal Liquid on 10/31); does not want [place] -Labs obtained: WNL -haldol is on patients community [employer]; since patient has no known allergy to Haldol and it is to be given only with Benadryl, will leave it on as a p.r.n. for severe agitation Greater than 50% of the session was spent on counseling and/or coordination of care Reason for contiued inpatient stay Substantial Risk for: rapid decompensation
[2020-11-04] MEDS: OLANZapine ODT 10 MG TAB.RAPDIS TRANSLINGU (20:07)
[2020-11-05] MEDS: OLANZapine ODT 10 MG TAB.RAPDIS 30 MG TRANSLINGU (08:53)
[2020-11-05] MEDS: risperiDONE 2 MG TABLET 4 MG PO (08:53)
--- NOTE | 2020-11-05 14:28 | HO.PSYCHPN ---
Subjective Subjective Date of Service: 11/05/20 Reason For Visit: Schizophrenia Subjective Notes: Section 7 Medical Problems Affecting Mental Status: No Interim History: Patient says he is ?okay ?and that he overall thinks he is getting back to his normal self. He was withdrawn and did not engage. He has been a bit more talkative with familiar staff. Medication Compliance: Yes Side effects from medications: No Attending Groups: No Review of Systems Acute medical concerns: No Medical Review of Systems: unchanged Review of Systems Review of Systems ROS unable to be obtained due to limited historian, vague, not fully answering questions Yes all other systems are reviewed and are negative Reports behavioral changes Psychiatric: Reports behavioral changes, Reports difficulty concentrating, Reports auditory hallucinations, Reports irritability, Reports anhedonia, Reports paranoia, Reports visual hallucinations and Reports hallucinations Mental Status Exam Mental Status Exam Patient Appearance: Unkempt (at one point shoes appear to be on the wrong feet) Patient Orientation: Person and Place Level of Consciousness: Awake and Alert Patient Behavior: Guarded, Suspicious, Anxious, Avoidant, Distractible, Isolative and Poor Eye Contact Mood Description: Anxious, Blunted and Apprehensive Affect Description: Constricted, Blunted and Flat Patient Cognition Impaired: Yes Ability to Follow Directions: Poor Speech Pattern: Impoverished Memory Description: Remote Impaired and Episodic Impaired Thought Content: positive for Poverty of Content, negative for Suicidal Ideation or negative for Homicidal Ideation Abnormal Motor Activity Signs and Symptoms: Psychomotor Retardation Judgement: Poor Diagnostics Vital Signs (24Hr): Vital Signs - 24 hr 11/04/20 16:13 Temperature 97.4 F Pulse Rate 84 Respiratory Rate 16 Blood Pressure 110/74 Pulse Oximetry 98 Body Mass Index 30.2 Labs Results: 10/21/20 16:14 10/28/20 08:02 Medications Medications Current Medications Generic Name Dose Route Start Last Admin Trade Name Freq PRN Reason Stop Dose Admin Acetaminophen 650 mg 10/11/20 22:53 Acetaminophen 325 Mg Tablet PO Q6H PRN Headache/Pain Mild Scale (1-3) Al Hydroxide/Mg Hydroxide 30 ml 10/11/20 22:53 Magnesium Hydrox/Alum Hydrox 30 Ml Oral.Susp PO Q6H PRN Heartburn/Nausea Benztropine Mesylate 0.5 mg 10/13/20 14:29 Benztropine Mesylate 0.5 Mg Tablet PO DAILY PRN EPS Diphenhydramine HCl 50 mg 10/12/20 16:32 Diphenhydramine Hcl 25 Mg Tablet PO Q4H PRN agitation Haloperidol 5 mg 10/12/20 16:32 Haloperidol 5 Mg Tablet PO Q4H PRN agitation Hydroxyzine HCl 25 mg 10/11/20 22:53 Hydroxyzine Hcl 25 Mg Tablet PO BEDTIME PRN Anxiety Magnesium Hydroxide 30 ml 10/11/20 22:53 Milk Of Magnesia 30 Ml Oral.Susp PO DAILY PRN Constipation Melatonin 6 mg 10/11/20 21:00 11/04/20 20:08 Melatonin 3 Mg Tablet PO Not Given BEDTIME MARIA Nicotine 14 mg 10/14/20 12:22 Nicotine 14 Mg Patch.Td24 TRANSDERMA DAILY PRN nicotine cessation Nicotine Polacrilex 4 mg 10/11/20 22:53 Nicotine Polacrilex 2 Mg Gum BUCCAL Q2H PRN Nicotine Cravings Olanzapine 10 mg 10/12/20 15:58 Olanzapine 10 Mg Vial IM DAILY PRN GIVE IF REFUSES PO Olanzapine 30 mg 11/04/20 09:00 11/05/20 08:53 Olanzapine Odt 10 Mg Tab.Rapdis TRANSLINGU 30 mg DAILY MARIA Administration Olanzapine 10 mg 11/04/20 21:00 11/04/20 20:07 Olanzapine Odt 10 Mg Tab.Rapdis TRANSLINGU 10 mg BEDTIME MARIA Administration Pharmacy Consult 1 each 10/11/20 10:46 Consult Rx Perform Med Rec MISCELLANE ONCE PRN Consult order Pharmacy Consult 1 each 10/13/20 14:28 Consult Rx Perform Med Rec MISCELLANE ONCE PRN Consult order Risperidone 4 mg 11/05/20 09:00 11/05/20 08:53 Risperidone 2 Mg Tablet PO 4 mg DAILY MARIA Administration Trazodone HCl 50 mg 10/11/20 22:53 Trazodone Hcl 50 Mg Tablet PO BEDTIME PRN Insomnia Allergies Allergies Allergy/AdvReac Type Severity Reaction Status Date / Time ofloxacin [From Floxin] Allergy Unknown Unknown Verified 10/11/20 10:46 prednisone AdvReac Unknown Unknown Verified 10/11/20 10:46 Assessment & Plan Assessment & Plan (1) Chronic schizophrenia: Status: Acute Code(s): F20.9 - Schizophrenia, unspecified (2) Medical non-compliance: Status: Acute Code(s): Z91.19 - Patient's noncompliance with other medical treatment and regimen Assessment and Plan: IMPRESSION: patient is a 45-year-old male with chronic psychotic disorder, assaultive behavior, on a [employer], and currently living in a [facility] to subsidize apartment who presents for worsening psychotic symptoms and the face of refusing medications. Patient is malodorous, currently with blunted affect and moderately disorganized. patient cannot explain why he stopped taking his medications but says that he will take them now and did in fact take last night it's bedtime dose. He denies any SI, HI or AVH however he presents as internally preoccupied with thought blocking. He is currently on a [employer]. Will admit for safety and stabilization. Pt on a [employer] which allows for following meds: -Zyprexa -Risperdal/Consta -Clozaril -Haldol Patient reports he has an allergy to Haldol, though none is listed; he does not like the idea of getting weekly blood draws so will hold off Clozaril for now Hospital course: -filed court for court hearing for extended time as patient remains disorganized; will continue to put off court and try additional medications listed in [employer] to see if they can be effective -eating and drinking more so some improvement with nutrition but his negative, disorganized and paranoid symptoms have remained; he continues to be mostly selectively mute (has intermittently talked with staff about various things -Pt's mother visited hospital several times however has had to be escorted off by security several times (has been verbally assaultive to other pt's on unit, visitors; has been delusional reporting pt was involved in a breeding program on the unit; another time was agitated somewhere off unit in hospital, removed by security. -Risperdal started and titrated to good effect; patient is now talking more and becoming more organized Plan: - transition medications to morning doses as much as possible, given that [facility] staff mostly comes in the morning hours -Zydis 30mg in AM and 10mg at bedtime -Continue risperdal 4mg Daily; switching from liquid to tablets (Started Risperdal Liquid on 10/31); does not want [place] -Labs obtained: WNL -haldol is on patients [employer]; since patient has no known allergy to Haldol and it is to be given only with Benadryl, will leave it on as a p.r.n. for severe agitation No change to the above plan Greater than 50% of the session was spent on counseling and/or coordination of care Reason for contiued inpatient stay Substantial Risk for: inability to function
[2020-11-05 16:17] VITALS: BP 101/67; PULSE 85; RESP 16; TEMP 36.6; O2SAT 97
[2020-11-05] MEDS: OLANZapine ODT 10 MG TAB.RAPDIS TRANSLINGU (20:36)
[2020-11-06] MEDS: risperiDONE 2 MG TABLET 4 MG PO (07:57)
[2020-11-06] MEDS: OLANZapine ODT 10 MG TAB.RAPDIS 30 MG TRANSLINGU (07:58)
--- NOTE | 2020-11-06 16:13 | P.PNPSI_ITS ---
Subjective Subjective Date of Service: 11/06/20 Reason For Visit: Schizophrenia Subjective Notes: Section 7 Interim History: Patient appears guarded and anxious. He was withdrawn and did not engage. He has been a bit more talkative with familiar staff. Medication Compliance: No Side effects from medications: No Attending Groups: No Review of Systems Acute medical concerns: No Medical Review of Systems: unchanged Review of Systems Review of Systems ROS unable to be obtained due to limited historian, vague, not fully answering questions Yes all other systems are reviewed and are negative Reports behavioral changes Psychiatric: Reports behavioral changes, Reports difficulty concentrating, Reports auditory hallucinations, Reports irritability, Reports anhedonia, Reports paranoia, Reports visual hallucinations and Reports hallucinations Mental Status Exam Mental Status Exam Narrative: ?Patient Orientation: Awake, alert to Person and Place and some part of situation, Appearance: casually dressed; adequate hygiene Behavior: talking more; less guarded; still mostly stands in one place with flat affect and saying little Speech: More spontaneous, more; speech WNL when he does talk; still can be selectively mute Thought process:goal oriented; concrete Thought content:on discharge otherwise, vacuous Mood: okay Affect: constricted, sometimes flat SI:denies HI:denies VH/AH:denies, but seems moderately internally preoccupied Delusions: Denies Memory/cog: alert, impaired Insight/judgment: impaired Patient Appearance: Unkempt (at one point shoes appear to be on the wrong feet) Patient Orientation: Person and Place Level of Consciousness: Awake and Alert Patient Behavior: Guarded, Suspicious, Anxious, Avoidant, Distractible, Isolative and Poor Eye Contact Mood Description: Anxious, Blunted and Apprehensive Affect Description: Constricted, Blunted and Flat Patient Cognition Impaired: Yes Ability to Follow Directions: Poor Speech Pattern: Impoverished Memory Description: Remote Impaired and Episodic Impaired Diagnostics Vital Signs (24Hr): Vital Signs - 24 hr 11/05/20 16:17 Temperature 97.9 F Pulse Rate 85 Respiratory Rate 16 Blood Pressure 101/67 Pulse Oximetry 97 Body Mass Index 30.2 Labs Results: 10/21/20 16:14 10/28/20 08:02 Medications Medications Current Medications Generic Name Dose Route Start Last Admin Trade Name Freq PRN Reason Stop Dose Admin Acetaminophen 650 mg 10/11/20 22:53 Acetaminophen 325 Mg Tablet PO Q6H PRN Headache/Pain Mild Scale (1-3) Al Hydroxide/Mg Hydroxide 30 ml 10/11/20 22:53 Magnesium Hydrox/Alum Hydrox 30 Ml Oral.Susp PO Q6H PRN Heartburn/Nausea Benztropine Mesylate 0.5 mg 10/13/20 14:29 Benztropine Mesylate 0.5 Mg Tablet PO DAILY PRN EPS Diphenhydramine HCl 50 mg 10/12/20 16:32 Diphenhydramine Hcl 25 Mg Tablet PO Q4H PRN agitation Haloperidol 5 mg 10/12/20 16:32 Haloperidol 5 Mg Tablet PO Q4H PRN agitation Hydroxyzine HCl 25 mg 10/11/20 22:53 Hydroxyzine Hcl 25 Mg Tablet PO BEDTIME PRN Anxiety Magnesium Hydroxide 30 ml 10/11/20 22:53 Milk Of Magnesia 30 Ml Oral.Susp PO DAILY PRN Constipation Melatonin 6 mg 10/11/20 21:00 11/05/20 21:00 Melatonin 3 Mg Tablet PO Not Given BEDTIME MARIA Nicotine 14 mg 10/14/20 12:22 Nicotine 14 Mg Patch.Td24 TRANSDERMA DAILY PRN nicotine cessation Nicotine Polacrilex 4 mg 10/11/20 22:53 Nicotine Polacrilex 2 Mg Gum BUCCAL Q2H PRN Nicotine Cravings Olanzapine 10 mg 10/12/20 15:58 Olanzapine 10 Mg Vial IM DAILY PRN GIVE IF REFUSES PO Olanzapine 30 mg 11/04/20 09:00 11/06/20 07:58 Olanzapine Odt 10 Mg Tab.Rapdis TRANSLINGU 30 mg DAILY MARIA Administration Olanzapine 10 mg 11/04/20 21:00 11/05/20 20:36 Olanzapine Odt 10 Mg Tab.Rapdis TRANSLINGU 10 mg BEDTIME MARIA Administration Pharmacy Consult 1 each 10/11/20 10:46 Consult Rx Perform Med Rec MISCELLANE ONCE PRN Consult order Pharmacy Consult 1 each 10/13/20 14:28 Consult Rx Perform Med Rec MISCELLANE ONCE PRN Consult order Risperidone 4 mg 11/05/20 09:00 11/06/20 07:57 Risperidone 2 Mg Tablet PO 4 mg DAILY MARIA Administration Trazodone HCl 50 mg 10/11/20 22:53 Trazodone Hcl 50 Mg Tablet PO BEDTIME PRN Insomnia Allergies Allergies Allergy/AdvReac Type Severity Reaction Status Date / Time ofloxacin [From Floxin] Allergy Unknown Unknown Verified 10/11/20 10:46 prednisone AdvReac Unknown Unknown Verified 10/11/20 10:46 Assessment & Plan Assessment & Plan (1) Chronic schizophrenia: Status: Acute Code(s): F20.9 - Schizophrenia, unspecified (2) Medical non-compliance: Status: Acute Code(s): Z91.19 - Patient's noncompliance with other medical treatment and regimen Assessment and Plan: IMPRESSION: patient is a 45-year-old male with chronic psychotic disorder, assaultive behavior, on a [employer], and currently living in a [employer] to subsidize apartment who presents for worsening psychotic symptoms and the face of refusing medications. Patient is malodorous, currently with blunted affect and moderately disorganized. patient cannot explain why he stopped taking his medications but says that he will take them now and did in fact take last night it's bedtime dose. He denies any SI, HI or AVH however he presents as internally preoccupied with thought blocking. He is currently on a [employer]. Will admit for safety and stabilization. Pt on a [employer] which allows for following meds: -Zyprexa -Risperdal/Consta -Clozaril -Haldol Patient reports he has an allergy to Haldol, though none is listed; he does not like the idea of getting weekly blood draws so will hold off Clozaril for now Hospital course: -filed court for court hearing for extended time as patient remains disorganized; will continue to put off court and try additional medications listed in [employer] to see if they can be effective -eating and drinking more so some improvement with nutrition but his negative, disorganized and paranoid symptoms have remained; he continues to be mostly selectively mute (has intermittently talked with staff about various things -Pt's mother visited hospital several times however has had to be escorted off by security several times (has been verbally assaultive to other pt's on unit, visitors; has been delusional reporting pt was involved in a breeding program on the unit; another time was agitated somewhere off unit in hospital, removed by security. -Risperdal started and titrated to good effect; patient is now talking more and becoming more organized Plan: - transition medications to morning doses as much as possible, given that [facility] staff mostly comes in the morning hours -Zydis 30mg in AM and 10mg at bedtime -Continue risperdal 4mg Daily; switching from liquid to tablets (Started Risperdal Liquid on 10/31); does not want [place] -Labs obtained: WNL [facility]; since patient has no known allergy to Haldol and it is to be given only with Benadryl, will leave it on as a p.r.n. for severe agitation No change to the above plan Greater than 50% of the session was spent on counseling and/or coordination of care Patient educated on: diagnosis and medication risk/benefits Informed Consent: does not understand Reason for contiued inpatient stay Substantial Risk for: rapid decompensation
[2020-11-06 17:01] VITALS: BP 110/63; PULSE 85; RESP 16; TEMP 36.4; O2SAT 97
[2020-11-06] MEDS: OLANZapine ODT 10 MG TAB.RAPDIS TRANSLINGU (20:09)
[2020-11-07] MEDS: OLANZapine ODT 10 MG TAB.RAPDIS 30 MG TRANSLINGU (08:40)
[2020-11-07] MEDS: risperiDONE 2 MG TABLET 4 MG PO (08:42)
--- NOTE | 2020-11-07 15:34 | HO.PSYCHPN ---
Subjective Subjective Date of Service: 11/07/20 Reason For Visit: Schizophrenia Interim History: pt says he's alright. He says his visit with Shree, his [facility] staff was good i guess. But staff reported that he was quite interactive with Shree on Saturday and that he actually smiled. Patient also showered on his own Saturday. Patient a little more difficult to engage with today. He denies any side effects from Risperdal and says he rather just take the Zyprexa, but pattern chart writer explained that he seems to need both for now, though patient did not respond. Because patient was harder to engage, pattern chart writer wondered if it might be prudent to go back to Risperdal liquid; patient said he wants to remain on tablets. Gunner'S Mate discussed this with nursing who says that patient has been monitored while taking his medications and appears to be adherent. Mental Status Exam Mental Status Exam Narrative: Patient Orientation: Awake, alert to Person and Place and some part of situation, Appearance: casually dressed; adequate hygiene Behavior: talking more; less guarded; still mostly stands in one place with flat affect and saying little Speech:?still selectively mute but speech is More spontaneous and WNL when he does talk; Thought process: goal oriented; concrete Thought content: on discharge otherwise, vacuous Mood: alright Affect: constricted, sometimes flat SI:denies HI:denies VH/AH:denies, but seems moderately internally preoccupied Delusions:? Denies Memory/cog: alert, impaired Insight/judgment: impaired Diagnostics Vital Signs (24Hr): Vital Signs - 24 hr 11/06/20 17:01 Temperature 97.5 F Pulse Rate 85 Respiratory Rate 16 Blood Pressure 110/63 Pulse Oximetry 97 Body Mass Index 30.2 Labs Results: 10/21/20 16:14 10/28/20 08:02 Medications Medications Current Medications Generic Name Dose Route Start Last Admin Trade Name Freq PRN Reason Stop Dose Admin Acetaminophen 650 mg 10/11/20 22:53 Acetaminophen 325 Mg Tablet PO Q6H PRN Headache/Pain Mild Scale (1-3) Al Hydroxide/Mg Hydroxide 30 ml 10/11/20 22:53 Magnesium Hydrox/Alum Hydrox 30 Ml Oral.Susp PO Q6H PRN Heartburn/Nausea Benztropine Mesylate 0.5 mg 10/13/20 14:29 Benztropine Mesylate 0.5 Mg Tablet PO DAILY PRN EPS Diphenhydramine HCl 50 mg 10/12/20 16:32 Diphenhydramine Hcl 25 Mg Tablet PO Q4H PRN agitation Haloperidol 5 mg 10/12/20 16:32 Haloperidol 5 Mg Tablet PO Q4H PRN agitation Hydroxyzine HCl 25 mg 10/11/20 22:53 Hydroxyzine Hcl 25 Mg Tablet PO BEDTIME PRN Anxiety Magnesium Hydroxide 30 ml 10/11/20 22:53 Milk Of Magnesia 30 Ml Oral.Susp PO DAILY PRN Constipation Melatonin 6 mg 10/11/20 21:00 11/06/20 20:09 Melatonin 3 Mg Tablet PO Not Given BEDTIME MARIA Nicotine 14 mg 10/14/20 12:22 Nicotine 14 Mg Patch.Td24 TRANSDERMA DAILY PRN nicotine cessation Nicotine Polacrilex 4 mg 10/11/20 22:53 Nicotine Polacrilex 2 Mg Gum BUCCAL Q2H PRN Nicotine Cravings Olanzapine 10 mg 10/12/20 15:58 Olanzapine 10 Mg Vial IM DAILY PRN GIVE IF REFUSES PO Olanzapine 30 mg 11/04/20 09:00 11/07/20 08:40 Olanzapine Odt 10 Mg Tab.Rapdis TRANSLINGU 30 mg DAILY MARIA Administration Olanzapine 10 mg 11/04/20 21:00 11/06/20 20:09 Olanzapine Odt 10 Mg Tab.Rapdis TRANSLINGU 10 mg BEDTIME MARIA Administration Pharmacy Consult 1 each 10/11/20 10:46 Consult Rx Perform Med Rec MISCELLANE ONCE PRN Consult order Pharmacy Consult 1 each 10/13/20 14:28 Consult Rx Perform Med Rec MISCELLANE ONCE PRN Consult order Risperidone 4 mg 11/05/20 09:00 11/07/20 08:42 Risperidone 2 Mg Tablet PO 4 mg DAILY MARIA Administration Trazodone HCl 50 mg 10/11/20 22:53 Trazodone Hcl 50 Mg Tablet PO BEDTIME PRN Insomnia Allergies Allergies Allergy/AdvReac Type Severity Reaction Status Date / Time ofloxacin [From Floxin] Allergy Unknown Unknown Verified 10/11/20 10:46 prednisone AdvReac Unknown Unknown Verified 10/11/20 10:46 Assessment & Plan Assessment & Plan (1) Chronic schizophrenia: Status: Acute Code(s): F20.9 - Schizophrenia, unspecified (2) Medical non-compliance: Status: Acute Code(s): Z91.19 - Patient's noncompliance with other medical treatment and regimen Assessment and Plan: IMPRESSION: patient is a 45-year-old male with chronic psychotic disorder, assaultive behavior, on a [employer], and currently living in a [facility] to subsidize apartment who presents for worsening psychotic symptoms and the face of refusing medications. Patient is malodorous, currently with blunted affect and moderately disorganized. patient cannot explain why he stopped taking his medications but says that he will take them now and did in fact take last night it's bedtime dose. He denies any SI, HI or AVH however he presents as internally preoccupied with thought blocking. He is currently on a [employer]. Admitted for safety and stabilization. Pt on a [employer] which allows for following meds: -Zyprexa -Risperdal/Consta -Clozaril -Haldol Patient reports he has an allergy to Haldol, though none is listed; he does not like the idea of getting weekly blood draws so will hold off Clozaril for now Hospital course: -filed court for court hearing for extended time as patient remains disorganized; will continue to put off court and try additional medications listed in [employer] to see if they can be effective -eating and drinking more so some improvement with nutrition but his negative, disorganized and paranoid symptoms have remained; he continues to be mostly selectively mute (has intermittently talked with staff about various things -Pt's mother visited hospital several times however has had to be escorted off by security several times (has been verbally assaultive to other pt's on unit, visitors; has been delusional reporting pt was involved in a breeding program on the unit; another time was agitated somewhere off unit in hospital, removed by security. -Risperdal started and titrated to good effect; patient is now talking more and becoming more organized -Nursing informed pattern chart writer that patient has been monitored while taking his medications and appears to be adherent. Plan: - transition medications to morning doses as much as possible, given that [facility] staff mostly comes in the morning hours -Zydis 30mg in AM and 10mg at bedtime -Continue risperdal 4mg Daily; switched from liquid to tablets (Started Risperdal Liquid on 10/31); does not want [place] -Labs obtained: WNL -haldol is on patients [facility]; since patient has no known allergy to Haldol and it is to be given only with Benadryl, will leave it on as a p.r.n. for severe agitation No change to the above plan Greater than 50% of the session was spent on counseling and/or coordination of care Reason for contiued inpatient stay Substantial Risk for: rapid decompensation
[2020-11-07] MEDS: OLANZapine ODT 10 MG TAB.RAPDIS TRANSLINGU (21:02)
[2020-11-08] MEDS: risperiDONE 2 MG TABLET 4 MG PO (08:27)
[2020-11-08] MEDS: OLANZapine ODT 10 MG TAB.RAPDIS 30 MG TRANSLINGU (08:28)
--- NOTE | 2020-11-08 15:17 | HO.PSYCHPN ---
Subjective Subjective Date of Service: 11/08/20 Reason For Visit: Schizophrenia Interim History: Patient sitting in room on approach. Willing to walk down [place]en with senior mortgage underwriter to discuss treatment. Patient says that he is ?okay ?and that he hopes to go back home by next week, to which senior mortgage underwriter says that may be possible and we should discuss this with his [facility] team. Patient denies any SI, HI, AVH, depression; he says he is sleeping well, eating well and overall feels ?better.? General Surgeon asked and patient agreed that Risperdal has been helping. When asked how so, he says ?it's a mood stabilizer right? it's hard to explain [how it's helping]. ? Patient denied any requests or complaints. He says he thinks Shree, [facility] staff member is coming to visit today. Patient said he would ask senior mortgage underwriter if he needed anything. Medication Compliance: Yes Side effects from medications: No Attending Groups: No Mental Status Exam Mental Status Exam Narrative: ?Patient Orientation: Awake, alert to Person and Place and situation Appearance: casually dressed; adequate hygiene Behavior: talking more with increased spontaneity; overall less guarded; remains mostly isolated, interacting little, but does interact with some peers Speech:?WNL when he does talk; still selectively mute at times and seldom initiates conversation Thought process: goal oriented; concrete Thought content: on discharge otherwise, vacuous Mood: alright Affect: constricted, sometimes flat SI:denies HI:denies VH/AH:denies Delusions:? Denies Memory/cog: alert, impaired Insight/judgment: impaired but improving Diagnostics Vital Signs (24Hr): Body Mass Index 30.2 Labs Results: 10/21/20 16:14 10/28/20 08:02 Medications Medications Current Medications Generic Name Dose Route Start Last Admin Trade Name Freq PRN Reason Stop Dose Admin Acetaminophen 650 mg 10/11/20 22:53 Acetaminophen 325 Mg Tablet PO Q6H PRN Headache/Pain Mild Scale (1-3) Al Hydroxide/Mg Hydroxide 30 ml 10/11/20 22:53 Magnesium Hydrox/Alum Hydrox 30 Ml Oral.Susp PO Q6H PRN Heartburn/Nausea Benztropine Mesylate 0.5 mg 10/13/20 14:29 Benztropine Mesylate 0.5 Mg Tablet PO DAILY PRN EPS Diphenhydramine HCl 50 mg 10/12/20 16:32 Diphenhydramine Hcl 25 Mg Tablet PO Q4H PRN agitation Haloperidol 5 mg 10/12/20 16:32 Haloperidol 5 Mg Tablet PO Q4H PRN agitation Hydroxyzine HCl 25 mg 10/11/20 22:53 Hydroxyzine Hcl 25 Mg Tablet PO BEDTIME PRN Anxiety Magnesium Hydroxide 30 ml 10/11/20 22:53 Milk Of Magnesia 30 Ml Oral.Susp PO DAILY PRN Constipation Melatonin 6 mg 10/11/20 21:00 11/07/20 21:04 Melatonin 3 Mg Tablet PO Not Given BEDTIME MARIA Nicotine 14 mg 10/14/20 12:22 Nicotine 14 Mg Patch.Td24 TRANSDERMA DAILY PRN nicotine cessation Nicotine Polacrilex 4 mg 10/11/20 22:53 Nicotine Polacrilex 2 Mg Gum BUCCAL Q2H PRN Nicotine Cravings Olanzapine 10 mg 10/12/20 15:58 Olanzapine 10 Mg Vial IM DAILY PRN GIVE IF REFUSES PO Olanzapine 30 mg 11/04/20 09:00 11/08/20 08:28 Olanzapine Odt 10 Mg Tab.Rapdis TRANSLINGU 30 mg DAILY MARIA Administration Olanzapine 10 mg 11/04/20 21:00 11/07/20 21:02 Olanzapine Odt 10 Mg Tab.Rapdis TRANSLINGU 10 mg BEDTIME MARIA Administration Pharmacy Consult 1 each 10/11/20 10:46 Consult Rx Perform Med Rec MISCELLANE ONCE PRN Consult order Pharmacy Consult 1 each 10/13/20 14:28 Consult Rx Perform Med Rec MISCELLANE ONCE PRN Consult order Risperidone 4 mg 11/05/20 09:00 11/08/20 08:27 Risperidone 2 Mg Tablet PO 4 mg DAILY MARIA Administration Trazodone HCl 50 mg 10/11/20 22:53 Trazodone Hcl 50 Mg Tablet PO BEDTIME PRN Insomnia Allergies Allergies Allergy/AdvReac Type Severity Reaction Status Date / Time ofloxacin [From Floxin] Allergy Unknown Unknown Verified 10/11/20 10:46 prednisone AdvReac Unknown Unknown Verified 10/11/20 10:46 Assessment & Plan Assessment & Plan (1) Chronic schizophrenia: Status: Acute Code(s): F20.9 - Schizophrenia, unspecified (2) Medical non-compliance: Status: Acute Code(s): Z91.19 - Patient's noncompliance with other medical treatment and regimen Assessment and Plan: IMPRESSION: patient is a 45-year-old male with chronic psychotic disorder, assaultive behavior, on a [employer], and currently living in a [facility] to subsidize apartment who presents for worsening psychotic symptoms and the face of refusing medications. Patient is malodorous, currently with blunted affect and moderately disorganized. patient cannot explain why he stopped taking his medications but says that he will take them now and did in fact take last night it's bedtime dose. He denies any SI, HI or AVH however he presents as internally preoccupied with thought blocking. He is currently on a [employer]. Admitted for safety and stabilization. Pt on a [facility] which allows for following meds: -Zyprexa -Risperdal/Consta -Clozaril -Haldol Patient reports he has an allergy to Haldol, though none is listed; he does not like the idea of getting weekly blood draws so will hold off Clozaril for now Hospital course: -filed court for court hearing for extended time as patient remains disorganized; will continue to put off court and try additional medications listed in [employer] to see if they can be effective -eating and drinking more so some improvement with nutrition but his negative, disorganized and paranoid symptoms have remained; he continues to be mostly selectively mute (has intermittently talked with staff about various things -Pt's mother visited hospital several times however has had to be escorted off by security several times (has been verbally assaultive to other pt's on unit, visitors; has been delusional reporting pt was involved in a breeding program on the unit; another time was agitated somewhere off unit in hospital, removed by security. -Risperdal started and titrated to good effect; patient is now talking more and becoming more organized -Nursing informed senior mortgage underwriter that patient has been monitored while taking his medications and appears to be adherent. Plan: - transition medications to morning doses as much as possible, given that [facility] staff mostly comes in the morning hours -Zydis 30mg in AM and 10mg at bedtime -Continue risperdal 4mg Daily; switched from liquid to tablets (Started Risperdal Liquid on 10/31); does not want [place] -Labs obtained: WNL -haldol is on patients [employer]; since patient has no known allergy to Haldol and it is to be given only with Benadryl, will leave it on as a p.r.n. for severe agitation No change to the above plan Greater than 50% of the session was spent on counseling and/or coordination of care Reason for contiued inpatient stay Substantial Risk for: med/psych decompensation
[2020-11-08] MEDS: OLANZapine ODT 10 MG TAB.RAPDIS TRANSLINGU (20:37)
[2020-11-09] MEDS: risperiDONE 2 MG TABLET 4 MG PO (08:29)
[2020-11-09] MEDS: OLANZapine ODT 10 MG TAB.RAPDIS 30 MG TRANSLINGU (08:30)
[2020-11-09] MEDS: OLANZapine ODT 10 MG TAB.RAPDIS TRANSLINGU (20:20)
[2020-11-10 07:00] VITALS: BMI 30.2
[2020-11-10] MEDS: risperiDONE 2 MG TABLET 4 MG PO (08:15)
[2020-11-10] MEDS: OLANZapine ODT 10 MG TAB.RAPDIS 30 MG TRANSLINGU (08:16)
[2020-11-10] MEDS: risperiDONE 1 MG TABLET PO (11:40)
[2020-11-10] MEDS: OLANZapine ODT 10 MG TAB.RAPDIS TRANSLINGU (11:40)
--- NOTE | 2020-11-10 13:39 | P.PNPSI_ITS ---
Subjective Subjective Date of Service: 11/09/20 Reason For Visit: Schizophrenia Interim History: Patient seen on 11/09 Patient standing in front of door way, looking around, not talking. On approach patient says that he has ?good? and has no requests or complaints. Cap Inspector discussed medication regimen with him and if he would be okay for Zyprexa to be dosed all in the morning. Patient said it does not make him tired and that that is okay with him. Mental Status Exam Mental Status Exam Narrative: Patient Orientation: Awake, alert to Person and Place and situation Appearance: casually dressed; Malodorous today Behavior: talking more with increased spontaneity; overall less guarded; does interact with some peers; Speech:?WNL when he does talk; still selectively mute at times and seldom initiates conversation Thought process: goal oriented; concrete Thought content: on discharge otherwise, vacuous Mood: good Affect: constricted, sometimes flat SI:denies HI:denies VH/AH:denies Delusions:? Denies Memory/cog: alert, impaired Insight/judgment: impaired but improving Diagnostics Vital Signs (24Hr): Body Mass Index 30.2 Labs Results: 10/21/20 16:14 10/28/20 08:02 Medications Medications Current Medications Generic Name Dose Route Start Last Admin Trade Name Freq PRN Reason Stop Dose Admin Acetaminophen 650 mg 10/11/20 22:53 Acetaminophen 325 Mg Tablet PO Q6H PRN Headache/Pain Mild Scale (1-3) Al Hydroxide/Mg Hydroxide 30 ml 10/11/20 22:53 Magnesium Hydrox/Alum Hydrox 30 Ml Oral.Susp PO Q6H PRN Heartburn/Nausea Benztropine Mesylate 0.5 mg 10/13/20 14:29 Benztropine Mesylate 0.5 Mg Tablet PO DAILY PRN EPS Diphenhydramine HCl 50 mg 10/12/20 16:32 Diphenhydramine Hcl 25 Mg Tablet PO Q4H PRN agitation Haloperidol 5 mg 10/12/20 16:32 Haloperidol 5 Mg Tablet PO Q4H PRN agitation Hydroxyzine HCl 25 mg 10/11/20 22:53 Hydroxyzine Hcl 25 Mg Tablet PO BEDTIME PRN Anxiety Magnesium Hydroxide 30 ml 10/11/20 22:53 Milk Of Magnesia 30 Ml Oral.Susp PO DAILY PRN Constipation Melatonin 6 mg 10/11/20 21:00 11/09/20 20:21 Melatonin 3 Mg Tablet PO Not Given BEDTIME [facility] Nicotine 14 mg 10/14/20 12:22 Nicotine 14 Mg Patch.Td24 TRANSDERMA DAILY PRN nicotine cessation Nicotine Polacrilex 4 mg 10/11/20 22:53 Nicotine Polacrilex 2 Mg Gum BUCCAL Q2H PRN Nicotine Cravings Olanzapine 10 mg 10/12/20 15:58 Olanzapine 10 Mg Vial IM DAILY PRN GIVE IF REFUSES PO Olanzapine 40 mg 11/11/20 09:00 Olanzapine Odt 10 Mg Tab.Rapdis TRANSLINGU DAILY [facility] Pharmacy Consult 1 each 10/11/20 10:46 Consult Rx Perform Med Rec MISCELLANE ONCE PRN Consult order Pharmacy Consult 1 each 10/13/20 14:28 Consult Rx Perform Med Rec MISCELLANE ONCE PRN Consult order Risperidone 5 mg 11/11/20 09:00 Risperidone 1 Mg Tablet PO DAILY [facility] Trazodone HCl 50 mg 10/11/20 22:53 Trazodone Hcl 50 Mg Tablet PO BEDTIME PRN Insomnia Allergies Allergies Allergy/AdvReac Type Severity Reaction Status Date / Time ofloxacin [From Floxin] Allergy Unknown Unknown Verified 10/11/20 10:46 prednisone AdvReac Unknown Unknown Verified 10/11/20 10:46 Assessment & Plan Assessment & Plan (1) Chronic schizophrenia: Status: Acute Code(s): F20.9 - Schizophrenia, unspecified (2) Medical non-compliance: Status: Acute Code(s): Z91.19 - Patient's noncompliance with other medical treatment and regimen Assessment and Plan: IMPRESSION: patient is a 45-year-old male with chronic psychotic disorder, assaultive behavior, on a [employer], and currently living in a [facility] to subsidize apartment who presents for worsening psychotic symptoms and the face of refusing medications. Patient is malodorous, currently with blunted affect and moderately disorganized. patient cannot explain why he stopped taking his medications but says that he will take them now and did in fact take last night it's bedtime dose. He denies any SI, HI or AVH however he presents as internally preoccupied with thought blocking. He is currently on a [employer]. Admitted for safety and stabilization. Pt on a [place] which allows for following meds: -Zyprexa -Risperdal/Consta -Clozaril -Haldol Patient reports he has an allergy to Haldol, though none is listed; he does not like the idea of getting weekly blood draws so will hold off Clozaril for now Hospital course: -filed court for court hearing for extended time as patient remains disorganized; will continue to put off court and try additional medications listed in [facility] Champion to see if they can be effective -eating and drinking more so some improvement with nutrition but his negative, disorganized and paranoid symptoms have remained; he continues to be mostly selectively mute (has intermittently talked with staff about various things -Pt's mother visited hospital several times however has had to be escorted off by security several times (has been verbally assaultive to other pt's on unit, visitors; has been delusional reporting pt was involved in a breeding program on the unit; another time was agitated somewhere off unit in hospital, removed by security. -Risperdal started and titrated to good effect; patient is now talking more and becoming more organized -Nursing informed grant writer that patient has been monitored while taking his medications and appears to be adherent. Plan: Waiting to discuss case with [facility] worker Shree who knows patient well and will help assess for patient's baseline - transition medications to morning doses as much as possible, given that [facility] staff mostly comes in the morning hours -Zydis 30mg in AM and 10mg at bedtime; will switch to all medications in the a.m. -Continue risperdal 4mg Daily; switched from liquid to tablets (Started Risperdal Liquid on 10/31); does not want [place] -Labs obtained: WNL -haldol is on patients [facility] Champion; since patient has no known allergy to Haldol and it is to be given only with Benadryl, will leave it on as a p.r.n. for severe agitation No change to the above plan Greater than 50% of the session was spent on counseling and/or coordination of care Reason for contiued inpatient stay Substantial Risk for: rapid decompensation
[2020-11-11] MEDS: OLANZapine ODT 10 MG TAB.RAPDIS 40 MG TRANSLINGU (08:24)
[2020-11-11] MEDS: risperiDONE 1 MG TABLET 5 MG PO (08:25)
--- NOTE | 2020-11-11 11:06 | HO.PSYCHPN ---
Subjective Subjective Date of Service: 11/10/20 Reason For Visit: Schizophrenia Interim History: Patient seen on 11/10 Patient standing in hallway in front of his door. On approach she says that he is okay.' functional tester typewriters asked if Shree, [facility] staff, was coming but pt was not sure; functional tester typewriters mentioned he was likely coming on Saturday. Patient then asked about discharge and functional tester typewriters said that it would be good to sit down and discuss this together with Shree. Patient then set 0h, so like a team meeting? To which functional tester typewriters agreed. He said okay to this. Supervisor Of Communications asked if he had any needs, anything to discuss, complaints or requests to which he said I am all set. Of note, staff reports that patient initiated a conversation with staff member, a seldom occurrence and considered to be a sign of improvement Mental Status Exam Mental Status Exam Narrative: ?Patient Orientation: Awake, alert to Person and Place and situation Appearance: casually dressed; adequate hygiene. Behavior: talking more with increased spontaneity; overall remains less guarded;? does interact with some peers; eating and drinking Speech:?WNL when he does talk; still selectively mute at times and seldom initiates conversation Thought process: goal oriented; concrete Thought content: on discharge otherwise, vacuous Mood: OK Affect: constricted or flat SI:denies HI:denies VH/AH:denies Delusions:? Denies Memory/cog: alert, impaired Insight/judgment: impaired but improving Diagnostics Vital Signs (24Hr): Body Mass Index 30.2 Labs Results: 10/21/20 16:14 10/28/20 08:02 Medications Medications Current Medications Generic Name Dose Route Start Last Admin Trade Name Chencho PRN Reason Stop Dose Admin Acetaminophen 650 mg 10/11/20 22:53 Acetaminophen 325 Mg Tablet PO Q6H PRN Headache/Pain Mild Scale (1-3) Al Hydroxide/Mg Hydroxide 30 ml 10/11/20 22:53 Magnesium Hydrox/Alum Hydrox 30 Ml Oral.Susp PO Q6H PRN Heartburn/Nausea Benztropine Mesylate 0.5 mg 10/13/20 14:29 Benztropine Mesylate 0.5 Mg Tablet PO DAILY PRN EPS Diphenhydramine HCl 50 mg 10/12/20 16:32 Diphenhydramine Hcl 25 Mg Tablet PO Q4H PRN agitation Haloperidol 5 mg 10/12/20 16:32 Haloperidol 5 Mg Tablet PO Q4H PRN agitation Hydroxyzine HCl 25 mg 10/11/20 22:53 Hydroxyzine Hcl 25 Mg Tablet PO BEDTIME PRN Anxiety Magnesium Hydroxide 30 ml 10/11/20 22:53 Milk Of Magnesia 30 Ml Oral.Susp PO DAILY PRN Constipation Melatonin 6 mg 10/11/20 21:00 11/10/20 20:37 Melatonin 3 Mg Tablet PO Not Given BEDTIME [facility] Nicotine 14 mg 10/14/20 12:22 Nicotine 14 Mg Patch.Td24 TRANSDERMA DAILY PRN nicotine cessation Nicotine Polacrilex 4 mg 10/11/20 22:53 Nicotine Polacrilex 2 Mg Gum BUCCAL Q2H PRN Nicotine Cravings Olanzapine 10 mg 10/12/20 15:58 Olanzapine 10 Mg Vial IM DAILY PRN GIVE IF REFUSES PO Olanzapine 40 mg 11/11/20 09:00 11/11/20 08:24 Olanzapine Odt 10 Mg Tab.Rapdis TRANSLINGU 40 mg DAILY [facility] Administration Pharmacy Consult 1 each 10/11/20 10:46 Consult Rx Perform Med Rec MISCELLANE ONCE PRN Consult order Pharmacy Consult 1 each 10/13/20 14:28 Consult Rx Perform Med Rec MISCELLANE ONCE PRN Consult order Risperidone 5 mg 11/11/20 09:00 11/11/20 08:25 Risperidone 1 Mg Tablet PO 5 mg DAILY [facility] Administration Trazodone HCl 50 mg 10/11/20 22:53 Trazodone Hcl 50 Mg Tablet PO BEDTIME PRN Insomnia Allergies Allergies Allergy/AdvReac Type Severity Reaction Status Date / Time ofloxacin [From Floxin] Allergy Unknown Unknown Verified 10/11/20 10:46 prednisone AdvReac Unknown Unknown Verified 10/11/20 10:46 Assessment & Plan Assessment & Plan (1) Chronic schizophrenia: Status: Acute Code(s): F20.9 - Schizophrenia, unspecified (2) Medical non-compliance: Status: Acute Code(s): Z91.19 - Patient's noncompliance with other medical treatment and regimen Assessment and Plan: IMPRESSION: patient is a 45-year-old male with chronic psychotic disorder, assaultive behavior, on a community Champion, and currently living in a [facility] apartment who presents for worsening psychotic symptoms and the face of refusing medications. Patient is malodorous, currently with blunted affect and moderately disorganized. patient cannot explain why he stopped taking his medications but says that he will take them now and did in fact take last night it's bedtime dose. He denies any SI, HI or AVH however he presents as internally preoccupied with thought blocking. He is currently on a community Champion. Admitted for safety and stabilization. Pt on a [facility] Champion which allows for following meds: -Zyprexa -Risperdal/Consta -Clozaril -Haldol Patient reports he has an allergy to Haldol, though none is listed; he does not like the idea of getting weekly blood draws so will hold off Clozaril for now Hospital course: -filed court for court hearing for extended time as patient remains disorganized; will continue to put off court and try additional medications listed in [facility] to see if they can be effective -eating and drinking more so some improvement with nutrition but his negative, disorganized and paranoid symptoms have remained; he continues to be mostly selectively mute (has intermittently talked with staff about various things -Pt's mother visited hospital several times however has had to be escorted off by security several times (has been verbally assaultive to other pt's on unit, visitors; has been delusional reporting pt was involved in a breeding program on the unit; another time was agitated somewhere off unit in hospital, removed by security. -Risperdal started and titrated to good effect; patient is now talking more and becoming more organized -Nursing informed functional tester typewriters that patient has been monitored while taking his medications and appears to be adherent. Plan: Waiting to discuss case with [facility] worker Shree who knows patient well and will help assess for patient's baseline and dispo plans -Zydis 40mg in AM (switched all to AM dosing to which pt agreed with, does not make tired- and which makes it easier for outpt staff to administer) -Increased risperdal to 5mg Daily to see if can give additional benefit (Started Risperdal Liquid on 10/31); does not want [place]; as of last week, Shree CHD worker said pt was not yet at baseline; will only increase by 1 mg since patient is already on high dose of olanzapine and now he is on 2 anti psychotics. No overt signs of TD; functional tester typewriters has hesitated to do AIMS exam to to patient's typical resistance to interactions. However will attempt to see if this is possible -Labs obtained: WNL -haldol is on patients community [employer]; since patient has no known allergy to Haldol and it is to be given only with Benadryl, will leave it on as a p.r.n. for severe agitation No change to the above plan Greater than 50% of the session was spent on counseling and/or coordination of care Reason for contiued inpatient stay Substantial Risk for: med/psych decompensation
[2020-11-11 16:34] VITALS: RESP 16
--- NOTE | 2020-11-11 16:42 | P.PNPSI_ITS ---
Subjective Subjective Date of Service: 11/11/20 Reason For Visit: Schizophrenia Interim History: Have patient reports that he is doing ?okay? and agrees to meet altogether with [facility]D worker Shree when he arrives [place] and pt met with Shree. Patient says that he feels ready to go home and would like to go next week. He says he would like to discharge Saturday and laughs a little, however he said that if it is necessary to get everything in order he can wait until Saturday. He also said clearly that he will take his medications. When telegraphic typewriter installer explained to Shree that he is on a new medication Risperdal, patient chimed in said it was not new that he had been on it in the past. Patient said that he is fine with taking all his medications in the morning and denied any side effects at all; he also agreed to having staff come over daily to help him take his medications. Shree said that he thinks patient is definitely better and back to his regular self. Mental Status Exam Mental Status Exam Narrative: Patient Orientation: Awake, alert to Person and Place and situation Appearance: casually dressed; adequate hygiene. Behavior: talking more with increased spontaneity, cooperative; Speech:?WNL when he does talk; still selectively mute at times and seldom initiates conversation Thought process: goal oriented; concrete Thought content: on discharge otherwise, vacuous Mood: OK Affect: constricted or a little flat SI:denies HI:denies VH/AH:denies Delusions:? Denies Memory/cog: alert, impaired Insight/judgment: impaired but improving Diagnostics Vital Signs (24Hr): Vital Signs - 24 hr 11/11/20 16:34 Respiratory Rate 16 Body Mass Index 30.2 Labs Results: 10/21/20 16:14 10/28/20 08:02 Medications Medications Current Medications Generic Name Dose Route Start Last Admin Trade Name Freq PRN Reason Stop Dose Admin Acetaminophen 650 mg 10/11/20 22:53 Acetaminophen 325 Mg Tablet PO Q6H PRN Headache/Pain Mild Scale (1-3) Al Hydroxide/Mg Hydroxide 30 ml 10/11/20 22:53 Magnesium Hydrox/Alum Hydrox 30 Ml Oral.Susp PO Q6H PRN Heartburn/Nausea Benztropine Mesylate 0.5 mg 10/13/20 14:29 Benztropine Mesylate 0.5 Mg Tablet PO DAILY PRN EPS Diphenhydramine HCl 50 mg 10/12/20 16:32 Diphenhydramine Hcl 25 Mg Tablet PO Q4H PRN agitation Haloperidol 5 mg 10/12/20 16:32 Haloperidol 5 Mg Tablet PO Q4H PRN agitation Hydroxyzine HCl 25 mg 10/11/20 22:53 Hydroxyzine Hcl 25 Mg Tablet PO BEDTIME PRN Anxiety Magnesium Hydroxide 30 ml 10/11/20 22:53 Milk Of Magnesia 30 Ml Oral.Susp PO DAILY PRN Constipation Melatonin 6 mg 10/11/20 21:00 11/10/20 20:37 Melatonin 3 Mg Tablet PO Not Given BEDTIME [facility] Nicotine 14 mg 10/14/20 12:22 Nicotine 14 Mg Patch.Td24 TRANSDERMA DAILY PRN nicotine cessation Nicotine Polacrilex 4 mg 10/11/20 22:53 Nicotine Polacrilex 2 Mg Gum BUCCAL Q2H PRN Nicotine Cravings Olanzapine 10 mg 10/12/20 15:58 Olanzapine 10 Mg Vial IM DAILY PRN GIVE IF REFUSES PO Olanzapine 40 mg 11/11/20 09:00 11/11/20 08:24 Olanzapine Odt 10 Mg Tab.Rapdis TRANSLINGU 40 mg DAILY [facility] Administration Pharmacy Consult 1 each 10/11/20 10:46 Consult Rx Perform Med Rec MISCELLANE ONCE PRN Consult order Pharmacy Consult 1 each 10/13/20 14:28 Consult Rx Perform Med Rec MISCELLANE ONCE PRN Consult order Risperidone 5 mg 11/11/20 09:00 11/11/20 08:25 Risperidone 1 Mg Tablet PO 5 mg DAILY [facility] Administration Trazodone HCl 50 mg 10/11/20 22:53 Trazodone Hcl 50 Mg Tablet PO BEDTIME PRN Insomnia Allergies Allergies Allergy/AdvReac Type Severity Reaction Status Date / Time ofloxacin [From Floxin] Allergy Unknown Unknown Verified 10/11/20 10:46 prednisone AdvReac Unknown Unknown Verified 10/11/20 10:46 Assessment & Plan Assessment & Plan (1) Chronic schizophrenia: Status: Acute Code(s): F20.9 - Schizophrenia, unspecified (2) Medical non-compliance: Status: Acute Code(s): Z91.19 - Patient's noncompliance with other medical treatment and regimen Assessment and Plan: IMPRESSION: patient is a 45-year-old male with chronic psychotic disorder, assaultive behavior, on a [employer], and currently living in a [facility] to subsidize apartment who presents for worsening psychotic symptoms and the face of refusing medications. Patient is malodorous, currently with blunted affect and moderately disorganized. patient cannot explain why he stopped taking his medications but says that he will take them now and did in fact take last night it's bedtime dose. He denies any SI, HI or AVH however he presents as internally preoccupied with thought blocking. He is currently on a [employer] Champion. Admitted for safety and stabilization. Pt on a [employer] which allows for following meds: -Zyprexa -Risperdal/Consta -Clozaril -Haldol Patient reports he has an allergy to Haldol, though none is listed; he does not like the idea of getting weekly blood draws so will hold off Clozaril for now Hospital course: -filed court for court hearing for extended time as patient remains disorganized; will continue to put off court and try additional [place] [facility] [place] can be effective -eating and drinking more so some improvement with nutrition but his negative, disorganized and paranoid symptoms have remained; he continues to be mostly selectively mute (has intermittently talked with staff about various things -Pt's mother visited hospital several times however has had to be escorted off by security several times (has been verbally assaultive to other pt's on unit, visitors; has been delusional reporting pt was involved in a breeding program on the unit; another time was agitated somewhere off unit in hospital, removed by security. -Risperdal started and titrated to good effect; patient is now talking more and becoming more organized -Nursing informed telegraphic typewriter installer that patient has been monitored while taking his medications and appears to be adherent. Plan: Shree, patient has [facility] staff worker assessed patient today on 11/11 and agrees that patient is much better and back to his regular self and okay to return home. Saturday team will confer with [facility] to set up plans for discharge otherwise: -Zydis 40mg in AM (switched all to AM dosing to which pt agreed with, does not make tired- and which makes it easier for outpt staff to administer) -Increased risperdal to 5mg Daily to see if can give additional benefit (Started Risperdal Liquid on 10/31); does not want [place]; as of last week, Shree [facility] worker said pt was not yet at baseline; will only increase by 1 mg since patient is already on high dose of olanzapine and now he is on 2 anti psychotics. No overt signs of TD; telegraphic typewriter installer has hesitated to do AIMS exam to to patient's typical resistance to interactions. However will attempt to see if this is possible -Labs obtained: WNL -haldol is on [facility]; since patient has no known allergy to Haldol and it is to be given only with Benadryl, will leave it on as a p.r.n. for severe agitation No change to the above plan Greater than 50% of the session was spent on counseling and/or coordination of care Reason for contiued inpatient stay Substantial Risk for: stable for discharge
[2020-11-12] MEDS: OLANZapine ODT 10 MG TAB.RAPDIS 40 MG TRANSLINGU (08:11)
[2020-11-12] MEDS: risperiDONE 1 MG TABLET 5 MG PO (08:12)
--- NOTE | 2020-11-12 17:50 | HO.PSYCHPN ---
Subjective Subjective Date of Service: 11/13/20 Reason For Visit: Schizophrenia Interim History: Patient seen and discussed with team. Patient evaluated this morning and upon interview im all set, does not want to talk with this proposal manager writer. In the milieu, patient is safe but isolative in behavior. Denies SI/SIB/HI upon inquiry. Says he feels safe. Medication Compliance: Yes Review of Systems Medical Review of Systems: unchanged Review of Systems Review of Systems Unable to attain as pt would not engage, guarded. Mental Status Exam Mental Status Exam Narrative: Somewhat unkempt, not malorodrous, normal body habitus. Poor eye contact, inattentive. No Tics or Tremors. No abnormal involuntary movements. Calm, guarded, would not engage. Non-pressured speech, non-spontaneous. No noticeable prolonged speech latency or dysarthria. Mood is [refused to state], affect is flat. Denies SI/SIB/HI upon inquiry. Unable to evaluate thought content. No known cognitive or memory impairment. Insight/ Judgment appears limited. Diagnostics Vital Signs (24Hr): Body Mass Index 30.2 Labs Results: 10/21/20 16:14 10/28/20 08:02 Medications Medications Current Medications Generic Name Dose Route Start Last Admin Trade Name Freq PRN Reason Stop Dose Admin Acetaminophen 650 mg 10/11/20 22:53 Acetaminophen 325 Mg Tablet PO Q6H PRN Headache/Pain Mild Scale (1-3) Al Hydroxide/Mg Hydroxide 30 ml 10/11/20 22:53 Magnesium Hydrox/Alum Hydrox 30 Ml Oral.Susp PO Q6H PRN Heartburn/Nausea Benztropine Mesylate 0.5 mg 10/13/20 14:29 Benztropine Mesylate 0.5 Mg Tablet PO DAILY PRN EPS Diphenhydramine HCl 50 mg 10/12/20 16:32 Diphenhydramine Hcl 25 Mg Tablet PO Q4H PRN agitation Haloperidol 5 mg 10/12/20 16:32 Haloperidol 5 Mg Tablet PO Q4H PRN agitation Hydroxyzine HCl 25 mg 10/11/20 22:53 Hydroxyzine Hcl 25 Mg Tablet PO BEDTIME PRN Anxiety Magnesium Hydroxide 30 ml 10/11/20 22:53 Milk Of Magnesia 30 Ml Oral.Susp PO DAILY PRN Constipation Melatonin 6 mg 10/11/20 21:00 11/11/20 21:12 Melatonin 3 Mg Tablet PO Not Given BEDTIME MARIA Nicotine 14 mg 10/14/20 12:22 Nicotine 14 Mg Patch.Td24 TRANSDERMA DAILY PRN nicotine cessation Nicotine Polacrilex 4 mg 10/11/20 22:53 Nicotine Polacrilex 2 Mg Gum BUCCAL Q2H PRN Nicotine Cravings Olanzapine 10 mg 10/12/20 15:58 Olanzapine 10 Mg Vial IM DAILY PRN GIVE IF REFUSES PO Olanzapine 40 mg 11/11/20 09:00 11/12/20 08:11 Olanzapine Odt 10 Mg Tab.Rapdis TRANSLINGU 40 mg DAILY MARIA Administration Pharmacy Consult 1 each 10/11/20 10:46 Consult Rx Perform Med Rec MISCELLANE ONCE PRN Consult order Pharmacy Consult 1 each 10/13/20 14:28 Consult Rx Perform Med Rec MISCELLANE ONCE PRN Consult order Risperidone 5 mg 11/11/20 09:00 11/12/20 08:12 Risperidone 1 Mg Tablet PO 5 mg DAILY MARIA Administration Trazodone HCl 50 mg 10/11/20 22:53 Trazodone Hcl 50 Mg Tablet PO BEDTIME PRN Insomnia Allergies Allergies Allergy/AdvReac Type Severity Reaction Status Date / Time ofloxacin [From Floxin] Allergy Unknown Unknown Verified 10/11/20 10:46 prednisone AdvReac Unknown Unknown Verified 10/11/20 10:46 Assessment & Plan Assessment & Plan (1) Chronic schizophrenia: Status: Acute Code(s): F20.9 - Schizophrenia, unspecified (2) Medical non-compliance: Status: Acute Code(s): Z91.19 - Patient's noncompliance with other medical treatment and regimen Assessment and Plan: IMPRESSION: patient is a 45-year-old male with chronic psychotic disorder, assaultive behavior, on a [employer], and currently living in a [facility] to subsidize apartment who presents for worsening psychotic symptoms and the face of refusing medications. Patient is malodorous, currently with blunted affect and moderately disorganized. patient cannot explain why he stopped taking his medications but says that he will take them now and did in fact take last night it's bedtime dose. He denies any SI, HI or AVH however he presents as internally preoccupied with thought blocking. He is currently on a [employer] video. Admitted for safety and stabilization. Pt on a [employer] which allows for following meds: -Zyprexa -Risperdal/Consta -Clozaril -Haldol Patient reports he has an allergy to Haldol, though none is listed; he does not like the idea of getting weekly blood draws so will hold off Clozaril for now Hospital course: -filed court for court hearing for extended time as patient remains disorganized; will continue to put off court and try additional medications listed in [facility] to see if they can be effective -eating and drinking more so some improvement with nutrition but his negative, disorganized and paranoid symptoms have remained; he continues to be mostly selectively mute (has intermittently talked with staff about various things -Pt's mother visited hospital several times however has had to be escorted off by security several times (has been verbally assaultive to other pt's on unit, visitors; has been delusional reporting pt was involved in a breeding program on the unit; another time was agitated somewhere off unit in hospital, removed by security. -Risperdal started and titrated to good effect; patient is now talking more and becoming more organized -Nursing informed proposal manager writer that patient has been monitored while taking his medications and appears to be adherent. -Micky continues to be adherent with medications and tolerating them well, will continue to monitor for benefit. Plan: Shree, patient has [facility] staff worker assessed patient today on 11/11 and agrees that patient is much better and back to his regular self and okay to return home. Saturday team will confer with [facility] to set up plans for discharge otherwise: -Zydis 40mg in AM (switched all to AM dosing to which pt agreed with, does not make tired- and which makes it easier for outpt staff to administer) -continue risperdal 5mg Daily to see if can give additional benefit (Started Risperdal Liquid on 10/31); does not want [place]; as of last week, Shree [facility] worker said pt was not yet at baseline; will only increase by 1 mg since patient is already on high dose of olanzapine and now he is on 2 anti psychotics. No overt signs of TD; proposal manager writer has hesitated to do AIMS exam to to patient's typical resistance to interactions. However will attempt to see if this is possible -Labs obtained: WNL -haldol is on patients [facility]; since patient has no known allergy to Haldol and it is to be given only with Benadryl, will leave it on as a p.r.n. for severe agitation No change to the above plan Greater than 50% of the session was spent on counseling and/or coordination of care Reason for contiued inpatient stay Substantial Risk for: inability to function, rapid decompensation and med/psych decompensation
[2020-11-13] MEDS: risperiDONE 1 MG TABLET 5 MG PO (09:10)
[2020-11-13] MEDS: OLANZapine ODT 10 MG TAB.RAPDIS 40 MG TRANSLINGU (09:10)
--- NOTE | 2020-11-13 14:16 | P.PNPSI_ITS ---
Subjective Subjective Date of Service: 11/14/20 Reason For Visit: Schizophrenia Subjective Notes: Augustin Warning and Section 7 Interim History: Patient seen and discussed with team. Patient evaluated this morning and upon interview im all set, does not want to talk with this board writer. In the milieu, patient is safe but isolative in behavior. Denies SI/SIB/HI upon inquiry. Says he feels safe. Medication Compliance: Yes Side effects from medications: No Attending Groups: No Mental Status Exam Mental Status Exam Narrative: Somewhat unkempt, not malorodrous, normal body habitus. Poor eye contact, inattentive. No Tics or Tremors. No abnormal involuntary movements. Calm, guarded, would not engage. Non-pressured speech, non-spontaneous. No noticeable prolonged speech latency or dysarthria. Mood is [refused to state], affect is flat. Denies SI/SIB/HI upon inquiry. Unable to evaluate thought c ontent. No known cognitive or memory impairment. Insight/ Judgment appears limited. Diagnostics Vital Signs (24Hr): Body Mass Index 30.2 Labs Results: 10/21/20 16:14 10/28/20 08:02 Medications Medications Current Medications Generic Name Dose Route Start Last Admin Trade Name Freq PRN Reason Stop Dose Admin Acetaminophen 650 mg 10/11/20 22:53 Acetaminophen 325 Mg Tablet PO Q6H PRN Headache/Pain Mild Scale (1-3) Al Hydroxide/Mg Hydroxide 30 ml 10/11/20 22:53 Magnesium Hydrox/Alum Hydrox 30 Ml Oral.Susp PO Q6H PRN Heartburn/Nausea Benztropine Mesylate 0.5 mg 10/13/20 14:29 Benztropine Mesylate 0.5 Mg Tablet PO DAILY PRN EPS Diphenhydramine HCl 50 mg 10/12/20 16:32 Diphenhydramine Hcl 25 Mg Tablet PO Q4H PRN agitation Haloperidol 5 mg 10/12/20 16:32 Haloperidol 5 Mg Tablet PO Q4H PRN agitation Hydroxyzine HCl 25 mg 10/11/20 22:53 Hydroxyzine Hcl 25 Mg Tablet PO BEDTIME PRN Anxiety Magnesium Hydroxide 30 ml 10/11/20 22:53 Milk Of Magnesia 30 Ml Oral.Susp PO DAILY PRN Constipation Melatonin 6 mg 10/11/20 21:00 11/12/20 20:33 Melatonin 3 Mg Tablet PO Not Given BEDTIME MARIA Nicotine 14 mg 10/14/20 12:22 Nicotine 14 Mg Patch.Td24 TRANSDERMA DAILY PRN nicotine cessation Nicotine Polacrilex 4 mg 10/11/20 22:53 Nicotine Polacrilex 2 Mg Gum BUCCAL Q2H PRN Nicotine Cravings Olanzapine 10 mg 10/12/20 15:58 Olanzapine 10 Mg Vial IM DAILY PRN GIVE IF REFUSES PO Olanzapine 40 mg 11/11/20 09:00 11/13/20 09:10 Olanzapine Odt 10 Mg Tab.Rapdis TRANSLINGU 40 mg DAILY MARIA Administration Pharmacy Consult 1 each 10/11/20 10:46 Consult Rx Perform Med Rec MISCELLANE ONCE PRN Consult order Pharmacy Consult 1 each 10/13/20 14:28 Consult Rx Perform Med Rec MISCELLANE ONCE PRN Consult order Risperidone 5 mg 11/11/20 09:00 11/13/20 09:10 Risperidone 1 Mg Tablet PO 5 mg DAILY MARIA Administration Trazodone HCl 50 mg 10/11/20 22:53 Trazodone Hcl 50 Mg Tablet PO BEDTIME PRN Insomnia Allergies Allergies Allergy/AdvReac Type Severity Reaction Status Date / Time ofloxacin [From Floxin] Allergy Unknown Unknown Verified 10/11/20 10:46 prednisone AdvReac Unknown Unknown Verified 10/11/20 10:46 Assessment & Plan Assessment & Plan (1) Chronic schizophrenia: Status: Acute Code(s): F20.9 - Schizophrenia, unspecified (2) Medical non-compliance: Status: Acute Code(s): Z91.19 - Patient's noncompliance with other medical treatment and regimen Assessment and Plan: IMPRESSION: patient is a 45-year-old male with chronic psychotic disorder, assaultive behavior, on a [employer] Champion, and currently living in a [facility] to subsidize apartment who presents for worsening psychotic symptoms and the face of refusi ng medications. Patient is malodorous, currently with blunted affect and moderately disorganized. patient cannot explain why he stopped taking his medications but says that he will take them now and did in fact take last night it's bedtime dose. He denies any SI, HI or AVH however he presents as internally preoccupied with thought blocking. He is currently on a [employer]. Admitted for safety and stabilization. Pt on a [employer] which allows for following meds: -Zyprexa -Risperdal/Consta -Clozaril -Haldol Patient reports he has an allergy to Haldol, though none is listed; he does not like the idea of getting weekly blood draws so will hold off Clozaril for now Hospital course: -filed court for court hearing for extended time as patient remains disorganized; will continue to put off court and try additional medications listed in [facility] to see if they can be effective -eating and drinking more so some improvement with nutrition but his negative, disorganized and paranoid symptoms have remained; he continues to be mostly selectively mute (has intermittently talked with staff about various things -Pt's mother visited hospital several times however has had to be escorted off by security several times (has been verbally assaultive to other pt's on unit, visitors; has been delusional reporting pt was involved in a breeding program on the unit; another time was agitated somewhere off unit in hospital, removed by security. -Risperdal started and titrated to good effect; patient is now talking more and becoming more organized -Nursing informed board writer that patient has been monitored while taking his medications and appears to be adherent. -Micky continues to be adherent with medications and tolerating them well, will continue to monitor for benefit. Staff report he is sleeping well at night. Plan: Shree, patient has [facility] staff worker assessed patient today on 11/11 and agrees that patient is much better and back to his regular self and okay to return home. Saturday team will confer with [facility] to set up plans for discharge otherwise: -Zydis 40mg in AM (switched all to AM dosing to which pt agreed with, does not make tired- and which makes it easier for outpt staff to administer) -continue risperdal 5mg Daily to see if can give additional benefit (Started Risperdal Liquid on 10/31); does not want [place]; as of last week, Shree [facility] worker said pt was not yet at baseline; will only increase by 1 mg since patient is already on high dose of olanzapine and now he is on 2 anti psychotics. No overt signs of TD; board writer has hesitated to do AIMS exam to to patient's typical resistance to interactions. However will attempt to see if this is possible -Labs obtained: WNL -haldol is on patients [facility]; since patient has no known allergy to Haldol and it is to be given only with Benadryl, will leave it on as a p.r.n. for severe agitation No change to the above plan Greater than 50% of the session was spent on counseling and/or coordination of care Reason for contiued inpatient stay Substantial Risk for: rapid decompensation and med/psych decompensation
[2020-11-14 06:00] VITALS: BP 130/70; PULSE 88
[2020-11-14] MEDS: risperiDONE 1 MG TABLET 5 MG PO (08:21)
[2020-11-14] MEDS: OLANZapine ODT 10 MG TAB.RAPDIS 40 MG TRANSLINGU (08:21)
--- NOTE | 2020-11-14 09:38 | HO.PSYCHPN ---
Subjective Subjective Date of Service: 11/14/20 Reason For Visit: Schizophrenia Interim History: Reports that he has ?good? and feels ready to leave tomorrow. He asks about some of the discharge plan and whether staff will pick him up which quality analyst/technical writer confirmed. Nozzle Cement Sprayer Helper reviewed patient's medications and patient agrees to continue taking them as prescribed. He continues to deny any side effects. Patient denies any SI or HI and has no other complaints or requests. Mental Status Exam Mental Status Exam Narrative: ?Patient Orientation: Awake, alert to Person and Place and situation Appearance: casually dressed; adequate hygiene. Behavior: talking more with increased spontaneity, cooperative; Speech:?WNL Thought process: goal oriented; concrete Thought content: on discharge Mood: good Affect: constricted or a little flat SI:denies HI:denies VH/AH:denies Delusions:? Denies Memory/cog: alert, impaired Insight/judgment: Fair; baseline Diagnostics Vital Signs (24Hr): Body Mass Index 30.2 Labs Results: 10/21/20 16:14 10/28/20 08:02 Medications Medications Current Medications Generic Name Dose Route Start Last Admin Trade Name Freq PRN Reason Stop Dose Admin Acetaminophen 650 mg 10/11/20 22:53 Acetaminophen 325 Mg Tablet PO Q6H PRN Headache/Pain Mild Scale (1-3) Al Hydroxide/Mg Hydroxide 30 ml 10/11/20 22:53 Magnesium Hydrox/Alum Hydrox 30 Ml Oral.Susp PO Q6H PRN Heartburn/Nausea Benztropine Mesylate 0.5 mg 10/13/20 14:29 Benztropine Mesylate 0.5 Mg Tablet PO DAILY PRN EPS Diphenhydramine HCl 50 mg 10/12/20 16:32 Diphenhydramine Hcl 25 Mg Tablet PO Q4H PRN agitation Haloperidol 5 mg 10/12/20 16:32 Haloperidol 5 Mg Tablet PO Q4H PRN agitation Hydroxyzine HCl 25 mg 10/11/20 22:53 Hydroxyzine Hcl 25 Mg Tablet PO BEDTIME PRN Anxiety Magnesium Hydroxide 30 ml 10/11/20 22:53 Milk Of Magnesia 30 Ml Oral.Susp PO DAILY PRN Constipation Melatonin 6 mg 10/11/20 21:00 11/13/20 20:49 Melatonin 3 Mg Tablet PO Not Given BEDTIME MARIA Nicotine 14 mg 07/09/21 12:22 Nicotine 14 Mg Patch.Td24 TRANSDERMA DAILY PRN nicotine cessation Nicotine Polacrilex 4 mg 10/11/20 22:53 Nicotine Polacrilex 2 Mg Gum BUCCAL Q2H PRN Nicotine Cravings Olanzapine 10 mg 10/12/20 15:58 Olanzapine 10 Mg Vial IM DAILY PRN GIVE IF REFUSES PO Olanzapine 40 mg 11/11/20 09:00 11/14/20 08:21 Olanzapine Odt 10 Mg Tab.Rapdis TRANSLINGU 40 mg DAILY MARIA Administration Pharmacy Consult 1 each 10/11/20 10:46 Consult Rx Perform Med Rec MISCELLANE ONCE PRN Consult order Pharmacy Consult 1 each 10/13/20 14:28 Consult Rx Perform Med Rec MISCELLANE ONCE PRN Consult order Risperidone 5 mg 11/11/20 09:00 11/14/20 08:21 Risperidone 1 Mg Tablet PO 5 mg DAILY MARIA Administration Trazodone HCl 50 mg 10/11/20 22:53 Trazodone Hcl 50 Mg Tablet PO BEDTIME PRN Insomnia Allergies Allergies Allergy/AdvReac Type Severity Reaction Status Date / Time ofloxacin [From Floxin] Allergy Unknown Unknown Verified 10/11/20 10:46 prednisone AdvReac Unknown Unknown Verified 10/11/20 10:46 Assessment & Plan Assessment & Plan (1) Chronic schizophrenia: Status: Acute Code(s): F20.9 - Schizophrenia, unspecified (2) Medical non-compliance: Status: Acute Code(s): Z91.19 - Patient's noncompliance with other medical treatment and regimen Assessment and Plan: IMPRESSION: patient is a 45-year-old male with chronic psychotic disorder, assaultive behavior, on a [employer] Champion, and currently living in a [facility] who presents for worsening psychotic symptoms and the face of refusing medications. Patient is malodorous, currently with blunted affect and moderately disorganized. patient cannot explain why he stopped taking his medications but says that he will take them now and did in fact take last night it's bedtime dose. He denies any SI, HI or AVH however he presents as internally preoccupied with thought blocking. He is currently on a [employer]. Admitted for safety and stabilization. Pt on a [employer] Champion which allows for following meds: -Zyprexa -Risperdal/Consta -Clozaril -Haldol Patient reports he has an allergy to Haldol, though none is listed; he does not like the idea of getting weekly blood draws so will hold off Clozaril for now Hospital course: -filed court for court hearing for extended time as patient remains disorganized; will continue to put off court and try additional medications listed in [facility] [employer] to see if they can be effective -eating and drinking more so some improvement with nutrition but his negative, disorganized and paranoid symptoms have remained; he continues to be mostly selectively mute (has intermittently talked with staff about various things -Pt's mother visited hospital several times however has had to be escorted off by security several times (has been verbally assaultive to other pt's on unit, visitors; has been delusional reporting pt was involved in a breeding program on the unit; another time was agitated somewhere off unit in hospital, removed by security. -Risperdal started and titrated to good effect; patient is now talking more and becoming more organized -Nursing informed quality analyst/technical writer that patient has been monitored while taking his medications and appears to be adherent. -Micky continues to be adherent with medications and tolerating them well, will continue to monitor for benefit. Staff report he is sleeping well at night. Plan: Shree, patient has [facility] staff worker assessed patient today on 11/11 and agrees that patient is much better and back to his regular self and okay to return home. Saturday team will confer with [facility] to set up plans for discharge otherwise: -Zydis 40mg in AM (switched all to AM dosing to which pt agreed with, does not make tired- and which makes it easier for outpt staff to administer) -continue risperdal 5mg Daily to see if can give additional benefit (Started Risperdal Liquid on 10/31); does not want [place]; as of last week, Shree [facility] worker said pt was not yet at baseline; will only increase by 1 mg since patient is already on high dose of olanzapine and now he is on 2 anti psychotics. No overt signs of TD; quality analyst/technical writer has hesitated to do AIMS exam to to patient's typical resistance to interactions. However will attempt to see if this is possible -Labs obtained: WNL -haldol is on patients [facility]; since patient has no known allergy to Haldol and it is to be given only with Benadryl, will leave it on as a p.r.n. for severe agitation No change to the above plan Greater than 50% of the session was spent on counseling and/or coordination of care Reason for contiued inpatient stay Substantial Risk for: stable for discharge
--- NOTE | 2020-11-14 17:11 | PM.PSYDC ---
DS: Providers Provider Date of Service: 11/15/20 Date of admission: 10/11/20 23:00 Date of discharge: 11/15/20 Primary care physician: Unknown Physician Attending physician on admission: Carter Jauregui Attending physician on discharge: Carter Jauregui DS: Diagnosis Discharge Diagnosis (1) Chronic schizophrenia: Status: Acute (2) Medical non-compliance: Status: Resolved DS: Medications Discharge Medications Home Medications: Previous Rx's Medication Instructions Recorded benztropine 0.5 mg tablet 0.5 mg PO DAILY PRN 30 Days #30 tab 11/14/20 melatonin 5 mg tablet 5 mg PO BEDTIME PRN 30 Days #30 tab 11/14/20 olanzapine 10 mg disintegrating 40 mg TRANSLINGUAL DAILY 30 Days 11/14/20 tablet #120 tab risperidone 1 mg tablet 5 mg PO DAILY 30 Days #150 tab 11/14/20 Mental Status Exam Mental Status Exam Narrative: Patient Orientation: Awake, alert to Person and Place and situation Appearance: casually dressed; adequate hygiene. Behavior: talking freely with increased spontaneity, cooperative; Speech:?WNL Thought process: goal oriented; concrete Thought content: on discharge Mood: good Affect: remains constricted or a little flat SI:denies HI:denies VH/AH:denies Delusions:? Denies Memory/cog: alert, impaired Insight/judgment: Fair; baseline DS: Summary Hospital Course Hospital Course: patient is a 45-year-old male with chronic psychotic disorder, assaultive behavior, on a [employer], and currently living in a [facility] to subsidize apartment who presents for? worsening psychotic symptoms and the face of refusing medications. ? Patient is? malodorous, currently with blunted affect? and moderately disorganized. patient cannot explain why he stopped taking his medications but says that he will take them now and did in fact take last night it's bedtime dose. ? He denies any SI, HI or AVH however he presents as internally preoccupied with thought blocking. He is currently on a [employer]era. Admitted for safety and stabilization.? Pt on a [employer] which allows for following meds: -Zyprexa -Risperdal/Consta -Clozaril -Haldol Patient reports he has an allergy to Haldol, though none is listed; he does not like the idea of getting weekly blood draws so will hold off Clozaril for now Hospital course: -selectively mute; standing in hallway, in front of his room all day looking around, but not talking, not eating -patient restarted on Zyprexa and titrated to home dose of 40 mg daily however patient remained acutely disorganized -filed court; court hearing postponed for extended time as patient was willing to take medications -slowly patient began eating and drinking more indicated some minor improvement with nutrition; howeverbut his negative, disorganized and paranoid symptoms have remained; he continues to be mostly selectively mute -Pt's mother visited hospital several times however has had to be escorted off by security several times (has been verbally assaultive to other pt's on unit, visitors; has been delusional reporting pt was involved in a breeding program on the unit; another time was agitated somewhere off unit in hospital, removed by security. -as patient remained disorganized and not at baseline (patient is [facility] staff (Shree) provided collateral report about patient's baseline and met with patient) patient was started on Risperdal. Thankfully this was able to be titrated to good effect and patient started talking more, able to have organized conversations about his treatment and becoming more organized overall, showering on his own request and interacting with select peers a bit more -patient continued to be adherent with medications and tolerating them well; [facility] staff met with patient and reported that he is back to his regular self and appropriate for discharge home. Patient was not in imminent risk for harm to self or others and was organized enough to attend to his daily living activities. He remains with supportive staff meet with him regularly. On day of discharge, patient actually thanked designer writer and wished him well which was as unexpected as it was a welcomed. Although patient was able to improved to his baseline on Risperdal, designer writer was very hesitant to taper down or discontinue Zyprexa since he was finally stabilized. Also he has been on Zyprexa for many years and may not tolerate discontinuation. Furthermore patient wanted to remain on Zyprexa. Since patient was finally back to his baseline, designer writer decided to defer to patient's outpatient psychiatric prescriber on how to handle whether to leave patient on 2 antipsychotic medications or to taper off. Patient had no overt signs of TD and denied any medication side effects. He has had several other mono therapy trials in the past Status at Discharge Functional status at discharge: independent ambulation Overall status at discharge: patient is back to baseline Time Spent with Patient Time attestation: Total time spent providing and/or coordinating discharge services: Time spent: Greater than 30 minutes Discharge Plan Discharge Patient Disposition: Home, Self-Care Discharge Diagnosis: Schizophrenia, paranoid type Referrals: Dr. Edward Flores (psychiatry) [Other] - 12/13/20 10:00 am (This appointment will be in-person at the clinic) Adrianna Huerta NP [Nurse Practitioner] - 11/28/20 9:00 am (in office ) Discharge Medications: New olanzapine 10 mg Tablet,Disintegrating 40 mg translingual DAILY 30 Days Qty: 120 RF: 0 risperidone 1 mg Tablet 5 mg PO DAILY 30 Days Qty: 150 RF: 0 Changed benztropine 0.5 mg tablet 0.5 mg PO DAILY PRN (Reason: EPS) 30 Days Qty: 30 RF: 0 melatonin 5 mg tablet 5 mg PO BEDTIME PRN (Reason: sleep) 30 Days Qty: 30 RF: 0 Discontinued diphenhydramine HCl [Benadryl] 25 mg Capsule 25 mg PO RF: 0 olanzapine 20 mg tablet 40 mg PO BEDTIME RF: 0 Discharge Orders: Discharge Order (Routine); Ordered 11/15/20 Ordered By: Carter Jauregui Diet: regular diet Activity on Discharge: As tolerated Stand Alone Forms: Patient Portal Discharge page, Community Support Care Plan Goals: Maintain mood and safe behaviors Take medications as prescribed Practice coping skills Continue with outpatient providers and reach out to them as needed Health Concerns: Mood instability and behaviors Plan of Treatment: Follow up with your psychiatric provider regarding above concerns Take medications as prescribed Assessment: Risk assessment at time of discharge:? Patient was interviewed prior to discharge and found to be fully oriented and without any SI or HI. Patient has improved insight and demonstrates good judgment in terms of wanting to continue treatment. Patient is not in imminent risk of harm to self or others and has a safety plan that includes reaching out to staff if feeling unsafe.? Patient has been observed closely by nursing and unit staff throughout admission; patient has not engaged in any behaviors that suggest dangerousness to self or others and has demonstrated impulse control. Discharge Date/Time: 11/15/20 10:31
[2020-11-15] MEDS: risperiDONE 1 MG TABLET 5 MG PO (08:17)
[2020-11-15] MEDS: OLANZapine ODT 10 MG TAB.RAPDIS 40 MG TRANSLINGU (08:18)
== END 2020-11-15 10:31 | disposition home or self-care (01) | DRG 885 ==
LOC: HO.ED 19:10 → HO.PM5 23:06
PROVIDERS: Psychiatry & Neurology Psychiatry; Admitting Provider Psychiatry & Neurology Psychiatry; Emergency Provider Emergency Medicine; Visit Provider Psychiatry & Neurology Psychiatry
DX: F20.9 Schizophrenia, unspecified (principal); F17.210 Nicotine dependence, cigarettes, uncomplicated; Z71.6 Tobacco abuse counseling; Z91.14 Patient's other noncompliance with medication regimen; Z20.822 Contact with and (suspected) exposure to COVID-19; Z79.899 Other long term (current) drug therapy
CPT/HCPCS: 36415; 80048; 80051; 80053; 80061; 80076; 80307; 81003; 82077; 82565; 83036; 84520; 85025; 87635; 93005; 99285